=== PATIENT | female | born 1935 | race Caucasian/White ===

== ENCOUNTER 2018-02-09 12:37 | Observation (INO) | END 2018-02-11 17:23 | disposition home or self-care (01) ==

== ENCOUNTER 2018-05-08 19:16 | Emergency (ER) | END 2018-05-08 22:50 | disposition home or self-care (01) ==

== ENCOUNTER 2019-01-11 09:52 | Day surgery (SDC) | payer OTHER ==
[2019-01-11] VITALS (13 sets, daily range): BP systolic 134–169; BP diastolic 59–81; PULSE 68–82; RESP 12–20; Ht 154.9 cm; Wt 66.6 kg
[~2019-01-11] VITALS: Ht 154.9 cm; Wt 66.6 kg
[~2019-01-11 09:52] MED LIST: CARB1TAB34 PO; CLOP75TA28 PO; FER325 PO; HYDR-4011 PO; LEVO75TA5 PO; LIPA1CAP4 PO; LOSA100T15 PO; NORT25CA PO; PANT40TA4 PO; POTA10TA37 PO; SOD CHLORIDE 0.9% 1,000 ML IV SCH
[2019-01-11] MEDS ORDERED: GABA100C14 ORAL (10:46)
[2019-01-11] MEDS ORDERED: BENA40TA56 ORAL (10:46)
[2019-01-11] MEDS ORDERED: CLIN300C10 PO (10:56)
[2019-01-11] MEDS ORDERED: MIDAZOLAM 1 MG/ML 2 ML INJ ONE (12:12)
[2019-01-11] MEDS ORDERED: HEPARIN 1000 UNITS/NS (A-LINE) 1,000 ML ONE (12:12)
[2019-01-11] MEDS ORDERED: FENTAnyl 50 MCG/ML VIAL ONE (12:12)
[2019-01-11] MEDS ORDERED: LIDOCAINE 1% (MDV) 20 ML INJ ONE (12:12)
--- NOTE | 2019-01-11 12:58 | SIPON ---
Date/Time of Note Date/Time of Note DATE: 01/11/19 TIME: 12:56 Operative Report Preoperative Diagnosis Right leg non healing ulcer Postoperative Diagnosis same Operation/Procedure Performed aortogram, RLE runoff, L CHIEF MECHANICAL ENGINEER puncture - occluded R SFA to mid thigh, patent pop and 2v runoff via ASTRID and peroneal Surgeon see signature line graduate teaching assistant none Anesthesia: moderate sedation Estimated blood loss: minimal Transfusion Required none Specimen none Grafts/Implants none Complications none ALLY DAY MD Jan 11, 2019 12:58
--- NOTE | 2019-01-11 18:10 | OPR ---
DATE OF OPERATION: 01/11/2019 PREOPERATIVE DIAGNOSIS: Right ankle nonhealing ulcer. POSTOPERATIVE DIAGNOSIS: Right ankle nonhealing ulcer. PROCEDURE PERFORMED: Abdominal aortogram with right lower extremity runoff. SURGEON: Dr. Ally Estrada. ANESTHESIA: Local with sedation. ESTIMATED BLOOD LOSS: Minimal. COMPLICATIONS: No intraprocedural complications. INDICATIONS: An 83-year-old woman with Parkinson's, peripheral arterial disease, and a painful nonhe aling right medial ankle ulcer. 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 She had preoperative arter ial duplex done 6 months ago that showed a right SFA occlusion. I brought her in today for angiogram and possible intervention to help the wound heal, which is what we ended up doing for diagnostic. DESCRIPTION OF PROCEDURE: The patient was brought to the supervisor dental laboratory, placed on the table in the supine position. Left groin was prepped and draped in the usual sterile fashion. Using ultrasound to iden tify the left common femoral artery, I infiltrated over the artery using about 10 mL of 1% Xylocaine. I then used a micropuncture needle to enter the artery under ultrasound guidance. An 0.018 wire wa s inserted through the needle into the artery and a micropuncture sheath was advanced over the wire i nto the artery. I then advanced an 0.035 Bentson wire up into the abdominal aorta, exchanged the lance ropuncture sheath for a 5-Sinhala sheath over the wire. I then advanced a rim catheter into the infra renal aorta and did an aortogram. I advanced the catheter up and over the bifurcation using a 0.035 Glidewire for support and I advanced the catheter down into the right profunda femoral artery for run off down the right lower extremity. FINDINGS OF ANGIOGRAPHY: The infrarenal aorta is small but widely patent. There is no disease. Bot h common external and internal iliac arteries are widely patent. The right common femoral artery is patent with a widely patent right deep femoral artery. The right superficial femoral artery has a fl ush occlusion at its origin. There is a big branch coming off of the common femoral artery, but the superficial femoral artery itself is occluded at the origin. In the mid thigh, the SFA reconstitutes . It is very small and diseased down to the adductor where there is a good popliteal artery, which i s widely patent above and below the knee. Below the knee, the posterior tibial artery is occluded. There is good runoff through the anterior tibial artery which is patent all the way down across the a nkle into the foot giving rise to the dorsalis pedis. The peroneal artery is also widely patent all the way down to the ankle. The posterior tibial artery reconstitutes at the ankle through collateral s and there is retrograde filling into the pedal arch and into the plantar arteries through the dorsa lis pedis as well, so as this was a flush long segment occlusion of the SFA with a lot of collaterals coming off the common femoral, I did not think it was worth trying to intervene percutaneously. I t hink she would be better served with a bypass fem-pop. She has good runoff and a good popliteal gaby ry above the knee, so we terminated the procedure. We removed the catheter sheaths and wires and hel d manual pressure on the groin until there was good hemostasis. She was then transferred to the [facility] very room in stable condition. She tolerated the procedure well without any complications. Dictated By: ALLY RICE/IRENE Conf#: [id number] DID#: [id number] CC: DULCE BENNETT MD;*EndCC*
--- NOTE | 2019-01-12 17:07 | RADRPT ---
Vent Rate: 68 bpm RR Interval: 880 msec TN Interval: 153 msec QRS Duration: 91 msec QT Interval: 414 msec QTC Interval: 441 msec P-R-T [place]: 66 - 48 - 41 degrees Sinus rhythm...normal P axis, V-rate 50- 99 Electronically Signed By: Stone Cody
== END 2019-01-11 17:35 | disposition home or self-care (01) ==
LOC: SDS 09:52
PROVIDERS: ATTEND Surgery Vascular Surgery
DX: L98.499 Non-pressure chronic ulcer of skin of other sites with unspecified severity (principal)
CPT/HCPCS: 36246; 71045; 75630; 80048; 81001; 85025; 85610; 85730; 93005; C1887; C1894; J1644; J2250; J3010

== ENCOUNTER 2019-02-03 06:14 | Inpatient (IN) | payer OTHER ==
[~2019-02-03] VITALS: Ht 160 cm; Wt 66.0 kg
[2019-02-03] VITALS (49 sets, daily range): BP systolic 75–193; BP diastolic 38–95; PULSE 62–84; RESP 9–73; Ht 160 cm; Wt 66.0 kg
[~2019-02-03 06:14] MED LIST changes: +ACET325T33 PO; +ASPI-817 PO; +BEN25 PO; +BENA40TA56 ORAL; +BENA40TA56 PO; +CLIN300C10 PO; +DOCU-144 PO; +FURO20TA3 PO; +GABA100C14 ORAL; +GABA100C14 PO; +GABA300C16 PO; -HYDR-4011 PO; +LEVO50TA7 ORAL; -LOSA100T15 PO; +METO-448 PO; +MUPI22OI2 TOP; +NA P133E5 PR; +NITR100C6 PO; -NORT25CA PO; +PANT40TA4 ORAL; -PANT40TA4 PO; -POTA10TA37 PO; -SOD CHLORIDE 0.9% 1,000 ML IV SCH; +TRAM50TA2 PO
[2019-02-03] MEDS ORDERED: CEFAZOLIN 2 GM/50 ML (PMX) 50 ML IVPB ONE (07:00)
--- NOTE | 2019-02-03 07:10 | HPN ---
Date/Time of Note Date/Time of Note DATE: 02/03/19 TIME: 07:10 Interval H&P Admission Note Pt. seen H&P reviewed: No system changes ALLY DAY MD Feb 03, 2019 07:10
[2019-02-03] MEDS ORDERED: HEPARIN 1000 UNITS/ML 10 ML INJ ONE (07:26)
[2019-02-03] MEDS ORDERED: GELATIN SIZE 100 SPONGE ONE ×2 (07:26→11:32)
[2019-02-03] MEDS ORDERED: THROMBIN 5000 UNIT (RECOTHROM) VIAL ONE (07:26)
[2019-02-03] MEDS ORDERED: CITRIC ACID/NA CITRATE 30 ML CUP PO ONE (07:30)
[2019-02-03] MEDS: LACTATED RINGER'S 1,000 ML IV SCH (07:35)
[2019-02-03] MEDS ORDERED: HEPARIN 1000 UNITS/ML 10 ML INJ IRR ONE (07:45)
--- NOTE | 2019-02-03 08:11 | PREAC ---
Date/Time of Note Date/Time of Note DATE: 02/03/19 TIME: 08:09 Anesthesia Eval and Record Evaluation Time Pre-Procedure Interview DATE: 02/03/19 TIME: 08:09 Age 83 Sex female NPO: 8 hrs Preoperative diagnosis PAD Planned procedure R femoral to popliteal bypass Past Medical History Past Medical History: Includes Cardio: HTN Endo: Hypothyroid Neuro: Peripheral neuropathy Renal: CKD GI: GERD, Hiatal hernia Heme: Anemia Surgery & Anesthesia Issues No known issue Meds Anticoagulation: No Beta Nadine within 24 hr: No Reason Beta Nadine not given: Pt. not on B-Nadine Active Scripts Clopidogrel Bisulfate (Clopidogrel) 75 Mg Tablet, 75 MG PO DAILY for 30 Days, TAB Prov:DULCE BENNETT MD 02/11/18 Reported Medications Aspirin* (Aspirin* EC) 81 Mg Tablet.dr, 81 MG PO DAILY, TAB 02/03/19 Pantoprazole* (Pantoprazole*) 40 Mg Tablet.dr, 1 TAB ORAL DAILY 02/03/19 Benazepril Hcl* (Benazepril Hcl*) 40 Mg Tablet, 40 MG PO DAILY, #30 TAB 02/03/19 Levothyroxine Sodium* (Levothyroxine Sodium*) 50 Mcg Tablet, 1 TAB ORAL QAM 02/03/19 Gabapentin* (Gabapentin*) 100 Mg Capsule, 100 MG PO QAM, #90 CAP 02/03/19 Furosemide* (Furosemide*) 20 Mg Tablet, 20 MG PO DAILY, #60 TAB 02/03/19 Gabapentin* (Gabapentin*) 100 Mg Capsule, 3 CAP ORAL QHS 01/11/19 Carbidopa/Levodopa (Carbidopa-Levodopa 25-100 Tab) 1 Each Tablet, 1 EACH PO TID, TAB 02/09/18 Ferrous Sulfate* (Ferrous Sulfate*) 325 Mg Tabec, 325 MG PO DAILY, TAB 02/09/18 Discontinued Reported Medications Clindamycin Hcl* (Clindamycin Hcl*) 300 Mg Capsule, 300 MG PO Q8, CAP 01/11/19 Benazepril Hcl* (Benazepril Hcl*) 40 Mg Tablet, 1 TAB ORAL DAILY 01/11/19 Discontinued Scripts Fzhnbg-Idoiwrkt-Xdiembw* (Chloé BECKMAN* 12,000) 12,000 L-38,000-60,000 Unit Capsule.dr, 1 CAP PO WITH MEALS for 30 Days Prov:DULCE BENNETT MD 02/11/18 Current Medications Lactated Ringer's 1,000 ml @ 25 mls/hr Q24H IV Last administered on 02/03/19at 07:35; Admin Dose 25 MLS/HR; Start 02/03/19 at 07:30 Meds reviewed: Yes (plavix stopped over 5 days ago per patient and her ) Allergies Coded Allergies: No Known Allergy (Unverified , 02/03/19) Allergies Reviewed: Yes Labs/Studies Labs Reviewed: Reviewed by anesthesiologist Blood Bank Test 02/03/19 07:10 Blood Product Summary Counts test: N/A Pre-procedure Exam Last vitals Vital Signs Date Temp Pulse Resp B/P (MAP) Pulse Ox O2 O2 Flow FiO2 Time Delivery Rate 02/03/19 97.2 76 18 121/52 98 Room Air 07:00 (75) Airway: Adequate mouth opening, Adequate thyromental dist Mallampati: Mallampati IV Teeth: Normal Lung: Normal Heart: Normal ASA Physical Status ASA physical status: 4 Emergency: None Pre-operative Attestations Prior to commencing anesthesia and surgery, the patient was re-evaluated, there was verification of: *The patient's identity *The results of appropriate recent lab work and preoperative vital signs *The above evaluation not changing prior to induction *Anesthetic plan, risk benefits, alternative and complications discussed with patient/family; questions answered; patient/family understands, accepts and wishes to proceed. TOMY TORREZ DO Feb 03, 2019 08:11
[2019-02-03] MEDS ORDERED: hydrALAzine 20 MG INJ IV PRN (08:30)
[2019-02-03] MEDS ORDERED: LABETALOL HCL 20MG INJ IV PRN (08:30)
[2019-02-03] MEDS ORDERED: ONDANSETRON 4 MG INJ IV PRN (08:30)
[2019-02-03] MEDS ORDERED: HYDROmorphONE 1 MG/5 ML IV SYRINGE IV PRN ×3 (08:30)
[2019-02-03] MEDS ORDERED: BACITRACIN/POLYMYXIN 28.35 GM OINT TOP ONE (09:09)
[2019-02-03] MEDS ORDERED: BACITRACIN/POLYMYXIN 0.9 GM OINT TOP ONE (09:10)
[2019-02-03] MEDS ORDERED: THROMBIN 5000 UNIT (RECOTHROM) VIAL TOP ONE (11:25)
--- NOTE | 2019-02-03 12:07 | SIPON ---
Date/Time of Note Date/Time of Note DATE: 02/03/19 TIME: 12:05 Operative Report Preoperative Diagnosis non healing ulcer right distal calf Postoperative Diagnosis same Operation/Procedure Performed R fem-pop bypass with in-situ GSV and endoscopic vein branch ligation Surgeon see signature line mechanic assistant JAYLYN Tafoya Anesthesia: general Estimated blood loss: 50 - 100 ml's Transfusion Required none Specimen none Grafts/Implants none Complications none ALLY DAY MD Feb 03, 2019 12:07
[2019-02-03] MEDS ORDERED: niCARdipine 50 MG in SOD CHLORIDE 0.9% 480 ML IV SCH (12:30)
--- NOTE | 2019-02-03 13:10 | OPR ---
DATE OF OPERATION: 02/03/2019 PREOPERATIVE DIAGNOSIS: Nonhealing ulcer right distal calf and superficial femoral artery occlusion. POSTOPERATIVE DIAGNOSIS: Nonhealing ulcer right distal calf and superficial femoral artery occlusion . PROCEDURE PERFORMED: Right fem-pop bypass using in situ greater saphenous vein. We also did an endo scopic side branch ligation. SURGEON: Ally Estrada MD SIZE ROLLER OPERATOR: JAYLYN Tafoya ANESTHESIA: General endotracheal anesthesia. ESTIMATED BLOOD LOSS: 100 mL. COMPLICATIONS: No intraprocedural complications. INDICATIONS: This is an 83-year-old diabetic hypertensive woman. She has a nonhealing ulcer to the right medial ankle that is continually enlarging. She has mixed arterial and venous insufficiency. She had an arteriogram that shows a right SFA occlusion with reconstitution of the popliteal above th e knee and a 2-vessel runoff. I brought her in today for a fem-pop bypass for which she agreed to pr oceed. PROCEDURE: Patient was brought to the operating room and placed on the table in supine position. [facility] leg was prepped and draped in usual sterile fashion. Enedina Plascencia assisted me with doing bas ically skeletonizing the vein from the knee to the groin and using the endoscopic vein harvest system , we then ligated all the side branches of the vein between the knee and the groin using surgical cli ps that were applied through a port directed into the mid-thigh. So we basically skeletonized the ve in endoscopically with insufflation and then used a clip senior internal auditor to clip all the side branches, and w e doubly ligated them all. Once the vein was skeletonized, I then went to the groin, made an incisi on over the great saphenous vein and common femoral artery up in the groin area. I carefully dissect ed out the great saphenous vein in the groin. I ligated all the side branches with 2-0 silk ties and divided them until I got right down on to the saphenofemoral junction. I put a Satinsky clamp acros s saphenofemoral junction and transected the vein right at the femoral junction and then oversewed th e femoral vein venotomy using a 5-0 Prolene suture in a running standard vascular surgical fashion wa s an excellent vein and then just clamped it and then proceeded to dissect out the common, superficia l, and profunda femoral arteries in the groin. There was some calcified plaque in the common femoral , but it was nonocclusive just along the medial wall. The SFA was patent for a short segment and the n occludes in the upper thigh. It was very diseased. Profunda were soft and healthy, I had them all dissected out. I then went down to the distal thigh. I made an incision over the great saphenous v ein getting just above the knee and extending it up to the distal thigh about a 4 cm segment, dissect ed out the saphenous vein at this level and ligated and braced with 2-0 or 3-0 silk ties and divided them. Once I had the vein skeletonized completely from the knee to the groin, I then went and opened the fascia overlying the medial thigh muscles, I retracted the muscles posteriorly. I then identifi ed the popliteal artery and vein just above the knee. It was soft and was easily clamped and had a p roximal and distal targets fully exposed, I then gave the patient 6000 units of heparin intravenously . I began in the groin. I clamped the common, superficial, and profunda femoral arteries and made a long arteriotomy on the distal common femoral about 1.5 cm in length. I then spatulated the upper e nd of the vein to fit the venotomy. I cut the first valve in the vein under direct vision. I then a nastomosed the upper end of vein to the side of the common femoral artery using a 5-0 Prolene suture in a running standard vascular surgical fashion. I removed the clamps. There was good hemostasis. The vein was actually incompetent, so I could feel a pulse all the way down at the knee. So I then w ent down to the very distal end of my incision in the thigh and ligated the great saphenous vein dist ally with 2-0 silk tie. I divided it. There is actually good pulsatile bleeding but passed the Jaziel itre valvulotome from below, I passed it once, I did not feel any valves that were cut, but there was now excellent flow out the end of it. I did not see any reason to pass it again. I then clamped th e vein proximally and then clamped the popliteal artery proximally and distally, made about a cm long anterior arteriotomy in the popliteal artery, especially at the distal end of the vein just to fit t he arteriotomy and anastomosed the distal end of the vein alongside the popliteal artery using 6-0 Pr olene suture in a running standard vascular surgical fashion. I flushed before completing the anasto mosis. There was good backbleeding. There was good prograde bleeding through collaterals. There wa s excellent flow down through the graft. I flushed with heparinized saline and then completed the an astomosis. I removed the clamps proximally and distally. I then listened with the Doppler. There w as an excellent triphasic signal, became monophasic when the graft was clamped. I could feel a good pulse in the popliteal artery distal to my anastomosis. There was good hemostasis. I was happy with the result. We then closed all the skin incisions in 2 layers distally. I used 3-0 Vicryl and surg ical timothy in the groin. I used 3-0 Vicryl subcutaneous, and 4-0 Monocryl subcuticular suture. St erile dressings were applied. I applied bacitracin ointment and a Tegaderm over the distal calf incis ion prior to the procedure and we just left that on and wrapped her from the foot all the way up to t he knee using Kerlix and an Alden wrap. She was then extubated in the operating room and transferred t o the recovery room in stable condition. She tolerated the procedure well without any complications. Dictated By: ALLY RICE/IRENE Conf#: [id number] DID#: [id number] CC: CHANDU KURTZ; GALDINO DOW DPM; DULCE BENNETT MD;*End*
--- NOTE | 2019-02-03 15:35 | PN ---
Date/Time of Note Date/Time of Note DATE: 02/03/19 TIME: 15:34 Subjective drowsy Objective Vitals Vital Signs Date Temp Pulse Resp B/P (MAP) Pulse Ox O2 O2 Flow FiO2 Time Delivery Rate 02/03/19 66 15 142/48 99 Nasal 2.0 15:15 (79) Cannula 02/03/19 98.0 12:47 in recovery rm, still under anesthetic, rr syst m+, cta, still with +1-2 pit edema, rt low ext warm, less whalen red, Medications Medications Current Medications Lactated Ringer's 1,000 ml @ 25 mls/hr Q24H IV Last administered on 02/03/19at 07:35; Admin Dose 25 MLS/HR; Start 02/03/19 at 07:30 Hydromorphone HCl (Dilaudid) 0.2 mg PACU PRN IV MILD PAIN 1-3; Start 02/03/19 at 08:30; Stop 02/03/19 at 16:00 Hydromorphone HCl (Dilaudid) 0.4 mg PACU PRN IV MOD PAIN 4-6; Start 02/03/19 at 08:30; Stop 02/03/19 at 16:00 Hydromorphone HCl (Dilaudid) 0.6 mg PACU PRN IV SEVERE PAIN 7-10 Last administered on 02/03/19at 15:06; Admin Dose 0.6 MG; Start 02/03/19 at 08:30; Stop 02/03/19 at 16:00 Ondansetron HCl (Zofran Inj) 4 mg PACU ORDER PRN IV NAUSEA/VOMITING Last administered on 02/03/19at 15:05; Admin Dose 4 MG; Start 02/03/19 at 08:30; Stop 02/03/19 at 16:00 Labetalol HCl (Labetalol) 5 mg PACU ORDER PRN IV HIGH BLOOD PRESSURE Last administered on 02/03/19at 13:36; Admin Dose 5 MG; Start 02/03/19 at 08:30; Stop 02/03/19 at 16:00 Hydralazine HCl (Apresoline) 5 mg PACU ORDER PRN IV HIGH BLOOD PRESSURE; Start 02/03/19 at 08:30; Stop 02/03/19 at 16:00 Nicardipine HCl 50 mg/Sodium Chloride 500 ml @ 50 mls/hr TITRATE IV Last administered on 02/03/19at 15:21; Admin Dose 50 MLS/HR; Start 02/03/19 at 12:30 VTE Prophylaxis Risk score (from Ns)>0 risk: 8 SCD applied (from [facility] [place]): No SCD contraindication: other (s/p rt leg vasc surg procedure) Pharmacological prophylaxis: other (asa, plavix) VTE Confirmed-Overlap Tx Rcvd Reason for no Overlap Therapy: Contraindicated VTE Overlap Tx Contraindicated: peripheral vascular disease, sx procedure on lower extremity Lines/Catheters IV Catheter Type: Saline Lock Morgan in Place: Yes Cont'd morgan catheter reason: urinary retention, terminal illness/intractable pain Assessment/Plan Assessment/Plan 1. very poor pvd--s/p rt fem-pop revision 2. ckd II 3. htn 4. chr rt low ext skin ulceration & cellulitis 5. parkinson's 6. anemia 7. anxiety-depression 8. very large hiatal hernia causing gerd ---initial adm to icu, ---per vasc surg ---restart all home meds as soon as ok to po meds intake per surg ---optimize pain control DULCE BENNETT MD Feb 03, 2019 15:35
[2019-02-03] MEDS ORDERED: BISACODYL (EC) 5 MG TAB PO PRN (16:00)
[2019-02-03] MEDS ORDERED: DIPHENHYDRAMINE 25 MG CAP PO PRN (16:00)
[2019-02-03] MEDS ORDERED: LEVOTHYROXINE 50 MCG TAB PO ONE (16:00)
[2019-02-03] MEDS: PANTOPRAZOLE (EC) 40 MG TAB PO SCH (18:11)
[2019-02-03] MEDS: DEXTROSE 5%-0.45% NACL 1,000 ML IV SCH (20:39)
[2019-02-03] MEDS: GABAPENTIN 300 MG CAP PO SCH (20:51)
[2019-02-03] MEDS: CARBIDOPA/LEVODOPA (25/100) TAB PO SCH (20:51)
[2019-02-03] MEDS: FERROUS SULFATE (EC) 325 MG TAB PO SCH (20:51)
[2019-02-03] MEDS: MUPIROCIN 2% 22 GM OINT TOP SCH (21:00)
[2019-02-03] MEDS: morphine 2 MG INJ IV PRN (21:30)
--- NOTE | 2019-02-03 22:58 | CONS ---
DATE OF ADMISSION: 02/03/2019 DATE OF CONSULTATION: 02/03/2019 REASON FOR CONSULTATION: Right ankle ulceration. HISTORY OF PRESENT ILLNESS: This is an 83-year-old female with chronic ulceration to the right media l ankle, the patient with a history of arteriovenous insufficiency. She currently is status post rig ht femoropopliteal bypass with in situ greater saphenous vein. PAST MEDICAL HISTORY: Hypertension, hypothyroidism, peripheral neuropathy, chronic kidney disease, G ERD, hiatal hernia, anemia. MEDICATIONS: 1. Plavix 75 mg daily. 2. Aspirin 81 mg daily. 3. Benazepril 40 mg p.o. daily. 4. Pantoprazole 40 mg p.o. daily. 5. Levothyroxine 50 mcg daily. 6. Gabapentin 100 mg p.o. daily. 7. Furosemide 20 mg p.o. daily. 8. Carbidopa/levodopa 25/100. 9. Ferrous sulfate. ALLERGIES: NONE. PHYSICAL EXAMINATION VITAL SIGNS: Temperature is 98, pulse 66, respiratory rate 15, blood pressure 142/48, pulse ox is 98 per nasal cannula on 2 liters. GENERAL: The patient is in the ICU, alert, oriented, no pain. EXTREMITIES: The patient with a warm right lower extremity, mild to moderate edema, venous stasis hy perpigmentation, ulceration to the right medial ankle. Dressings clean, dry, intact. LABORATORY DATA: Pending. ASSESSMENT: 1. Right ankle chronic ulceration. 2. Arteriovenous insufficiency, status post right femoropopliteal bypass graft with in situ greater saphenous. 3. Anemia. 4. Hypothyroidism. PLAN: Discussed options for wound closure. We will plan definitive closure with allograft for skin grafting. The patient is pending transfer to the ICU. Further discussion with family pending. Dictated By: GALDINO DOW DPM RB/NTS Conf#: [id number] DID#: [id number] CC: ALLY DAY MD;*End*
[2019-02-04] VITALS (62 sets, daily range): BP systolic 55–154; BP diastolic 33–73; PULSE 68–90; RESP 12–25
[2019-02-04] MEDS: LEVOTHYROXINE 50 MCG TAB PO SCH (06:01)
[2019-02-04] MEDS: PANTOPRAZOLE (EC) 40 MG TAB PO SCH ×2 (06:01→17:01)
[2019-02-04] MEDS: DEXTROSE 5%-0.45% NACL 1,000 ML IV SCH ×2 (06:05→18:00)
[2019-02-04] MEDS: MUPIROCIN 2% 22 GM OINT TOP SCH ×2 (08:57→21:00)
[2019-02-04] MEDS: FERROUS SULFATE (EC) 325 MG TAB PO SCH ×3 (08:57→20:50)
[2019-02-04] MEDS: CARBIDOPA/LEVODOPA (25/100) TAB PO SCH ×3 (08:57→20:50)
[2019-02-04] MEDS: morphine 2 MG INJ IV PRN ×6 (08:59→21:13)
[2019-02-04] MEDS ORDERED: ASPIRIN 325 MG TAB PO SCH (09:00)
[2019-02-04] MEDS: LACTATED RINGER'S 1,000 ML IV SCH (09:05)
--- NOTE | 2019-02-04 11:51 | PN ---
Date/Time of Note Date/Time of Note DATE: 02/04/19 TIME: 11:42 Assessment/Plan VTE Prophylaxis Risk [place] [facility] [place] risk: 5 SCD applied ([place] [facility] [place] No SCD contraindicated: other Pharmacological prophylaxis: NA/contraindicated Pharm contraindication: bleeding Lines/Catheters [facility] Urinary Cath still in place: Yes Reason Cath still needed: other (indicate) Assessment/Plan Assessment/Plan 1. Right ankle chronic ulceration. 2. Arteriovenous insufficiency, status post right femoropopliteal bypass graft with in situ greater saphenous. pod #1 hgb dropped to 6.3 repeated and still in the 6's. 2 units prbc being given. will recheck the hgb and if still low <8 will give more blood. no signs of hematoma or purpura . bp been stable. 3. Anemia. 4. Hypothyroidism. Result Diagram: 02/04/19 0633 02/04/19 0320 Results 24hrs Laboratory Tests Test 02/04/19 03:20 02/04/19 06:33 White Blood Count 7.9 8.5 Red Blood Count 2.60 L 2.50 L Hemoglobin 6.3 *L 6.0 *L Hematocrit 21.7 L 20.8 L Mean Corpuscular Volume 83.5 83.2 Mean Corpuscular Hemoglobin 24.2 L 24.0 L Mean Corpuscular Hemoglobin Concent 29.0 L 28.8 L Red Cell Distribution Width 16.9 H 17.1 H Platelet Count 302 # 286 Mean Platelet Volume 10.2 9.8 Immature Granulocytes % 0.400 0.400 Neutrophils % 75.5 77.2 H Segmented Neutrophils % (Manual) 85 H Band Neutrophils % (Manual) 10 H Lymphocytes % 9.3 L 7.7 L Lymphocytes % (Manual) 3 L Reactive Lymphocytes % (Manual) 1 H Monocytes % 12.2 H 13.0 H Monocytes % (Manual) 1 Eosinophils % 2.0 1.2 Basophils % 0.6 0.5 Nucleated Red Blood Cells % 0.0 0.0 Immature Granulocytes # 0.030 0.030 Neutrophils # 5.9 6.6 Neutrophils # (Manual) 6.8 Band Neutrophils # 0.7 H Lymphocytes (Manual) 0.2 L Lymphocytes # 0.7 L 0.7 L Reactive Lymphocytes # 0.0 Monocytes # 1.0 H 1.1 H Monocytes # (Manual) 0.0 L Eosinophils # 0.2 0.1 Basophils # 0.1 0.0 Nucleated Red Blood Cells # 0.0 0.0 Pathologist Review (Hematology) YES Platelet Estimate NORMAL Giant Platelets 2 H Poikilocytosis 1+ Anisocytosis 1+ Sodium Level 140 Potassium Level 4.3 Chloride Level 104 Carbon Dioxide Level 28 Anion Gap 8 Blood Urea Nitrogen 20 Creatinine 0.92 Est Glomerular Filtrat Rate mL/min Glucose Level 151 Calcium Level 8.8 Magnesium Level 1.9 Subjective 24 Hr Interval Summary Free Text/Dictation pt is awake. denies nausea. mild pain. denies sob. had low hgb this am started transfusion. 2 units. Exam/Review of Systems Exam Vitals Vital Signs Date Temp Pulse Resp B/P (MAP) Pulse Ox O2 O2 Flow FiO2 Time Delivery Rate 02/04/19 73 18 143/48 100 10:30 (79) 02/04/19 Nasal 1.0 09:00 Cannula 02/04/19 98.2 07:45 Intake and Output 02/03/19 02/03/19 02/04/19 1515:00 23:00 07:00 IntakeIntake Total 2000 ml 325 ml 805 ml OutputOutput Total 410 ml 830 ml 339 ml BalanceBalance 1590 ml -505 ml 466 ml Exam right LE swollen , no redness. no purpura small bandage in place. Head: normocephalic Neck: supple Respiratory: clear to auscultation Results Results 24hrs Laboratory Tests Test 02/04/19 03:20 02/04/19 06:33 White Blood Count 7.9 8.5 Red Blood Count 2.60 L 2.50 L Hemoglobin 6.3 *L 6.0 *L Hematocrit 21.7 L 20.8 L Mean Corpuscular Volume 83.5 83.2 Mean Corpuscular Hemoglobin 24.2 L 24.0 L Mean Corpuscular Hemoglobin Concent 29.0 L 28.8 L Red Cell Distribution Width 16.9 H 17.1 H Platelet Count 302 # 286 Mean Platelet Volume 10.2 9.8 Immature Granulocytes % 0.400 0.400 Neutrophils % 75.5 77.2 H Segmented Neutrophils % (Manual) 85 H Band Neutrophils % (Manual) 10 H Lymphocytes % 9.3 L 7.7 L Lymphocytes % (Manual) 3 L Reactive Lymphocytes % (Manual) 1 H Monocytes % 12.2 H 13.0 H Monocytes % (Manual) 1 Eosinophils % 2.0 1.2 Basophils % 0.6 0.5 Nucleated Red Blood Cells % 0.0 0.0 Immature Granulocytes # 0.030 0.030 Neutrophils # 5.9 6.6 Neutrophils # (Manual) 6.8 Band Neutrophils # 0.7 H Lymphocytes (Manual) 0.2 L Lymphocytes # 0.7 L 0.7 L Reactive Lymphocytes # 0.0 Monocytes # 1.0 H 1.1 H Monocytes # (Manual) 0.0 L Eosinophils # 0.2 0.1 Basophils # 0.1 0.0 Nucleated Red Blood Cells # 0.0 0.0 Pathologist Review (Hematology) YES Platelet Estimate NORMAL Giant Platelets 2 H Poikilocytosis 1+ Anisocytosis 1+ Sodium Level 140 Potassium Level 4.3 Chloride Level 104 Carbon Dioxide Level 28 Anion Gap 8 Blood Urea Nitrogen 20 Creatinine 0.92 Est Glomerular Filtrat Rate mL/min Glucose Level 151 Calcium Level 8.8 Magnesium Level 1.9 Medications Medication Current Medications Lactated Ringer's 1,000 ml @ 25 mls/hr Q24H IV Last administered on 02/04/19 09:05; Admin Dose 25 MLS/HR; Start 02/03/19 at 07:30 Nicardipine HCl 50 mg/Sodium Chloride 500 ml @ 50 mls/hr TITRATE IV Last administered on 02/03/19at 15:21; Admin Dose 50 MLS/HR; Start 02/03/19 at 12:30 Pantoprazole (Protonix Tab) 40 mg BID@06,18 PO Last administered on 02/04/19at 06:01; Admin Dose 40 MG; Start 02/03/19 at 18:00 Levothyroxine Sodium (Synthroid) 50 mcg DAILY@06 PO Last administered on 02/04/19at 06:01; Admin Dose 50 MCG; Start 02/04/19 at 06:00 Gabapentin (Neurontin) 300 mg HS PO ; Start 02/03/19 at 21:00 Carbidopa/Levodopa (Sinemet (25/ 100)) 1 tab TID PO Last administered on at 08:57; Admin Dose 1 TAB; Start 02/03/19 at 21:00 Ferrous Sulfate (Ferrous Sulfate (Ec)) 325 mg TID PO Last administered on 02/04/19 08:57; Admin Dose 325 MG; Start 02/03/19 at 21:00 Bisacodyl (Dulcolax) 10 mg DAILY PRN PO CONSTIPATION; Start 02/03/19 at 16:00 Diphenhydramine HCl (Benadryl) 25 mg HS PRN PO insomnia; Start 02/03/19 at 16:00 Mupirocin (Bactroban) 1 applic BID TOP Last administered on 02/04/19 08:57; Admin Dose 1 APPLIC; Start 02/03/19 at 21:00 Dextrose/Sodium Chloride 1,000 ml @ 90 mls/hr Q11H7M IV Last administered on 02/04/19 06:05; Admin Dose 90 MLS/HR; Start 02/03/19 at 20:00 Morphine Sulfate (morphine) 2 mg Q4H PRN IV SEVERE PAIN LEVEL 7-10 Last administered on 02/04/19 08:59; Admin Dose 2 MG; Start 02/03/19 at 21:00 Aspirin (Aspirin) 325 mg DAILY PO Last administered on 02/04/19 09:23; Admin Dose 325 MG; Start 02/04/19 at 09:00 RERE GODOY MD Feb 04, 2019 11:51
--- NOTE | 2019-02-04 12:23 | PN ---
Date/Time of Note Date/Time of Note DATE: 02/04/19 TIME: 12:18 Assessment/Plan VTE Prophylaxis Risk score (from Ns)>0 risk: 5 SCD applied (from Ns): No SCD contraindicated: bilateral LE trauma Pharmacological prophylaxis: LMWH Lines/Catheters IV Catheter Type (from Nrs): A Line Urinary Cath still in place: Yes Reason Cath still needed: skin wounds contaminated by urine Assessment/Plan Assessment/Plan Pt receiving 2 U prbc, and hgb check afterward. If appropriately responded, stable to d/c ayesha and transfer out of ICU per medicine team. Leave morgan until tomorrow am for strict I/O's and ok to d/c tomorrow OK to start PT tomorrow as well. Result Diagram: 02/04/19 0633 02/04/19 0320 Results 24hrs Laboratory Tests Test 02/04/19 03:20 02/04/19 06:33 White Blood Count 7.9 8.5 Red Blood Count 2.60 L 2.50 L Hemoglobin 6.3 *L 6.0 *L Hematocrit 21.7 L 20.8 L Mean Corpuscular Volume 83.5 83.2 Mean Corpuscular Hemoglobin 24.2 L 24.0 L Mean Corpuscular Hemoglobin Concent 29.0 L 28.8 L Red Cell Distribution Width 16.9 H 17.1 H Platelet Count 302 # 286 Mean Platelet Volume 10.2 9.8 Immature Granulocytes % 0.400 0.400 Neutrophils % 75.5 77.2 H Segmented Neutrophils % (Manual) 85 H Band Neutrophils % (Manual) 10 H Lymphocytes % 9.3 L 7.7 L Lymphocytes % (Manual) 3 L Reactive Lymphocytes % (Manual) 1 H Monocytes % 12.2 H 13.0 H Monocytes % (Manual) 1 Eosinophils % 2.0 1.2 Basophils % 0.6 0.5 Nucleated Red Blood Cells % 0.0 0.0 Immature Granulocytes # 0.030 0.030 Neutrophils # 5.9 6.6 Neutrophils # (Manual) 6.8 Band Neutrophils # 0.7 H Lymphocytes (Manual) 0.2 L Lymphocytes # 0.7 L 0.7 L Reactive Lymphocytes # 0.0 Monocytes # 1.0 H 1.1 H Monocytes # (Manual) 0.0 L Eosinophils # 0.2 0.1 Basophils # 0.1 0.0 Nucleated Red Blood Cells # 0.0 0.0 Pathologist Review (Hematology) YES Platelet Estimate NORMAL Giant Platelets 2 H Poikilocytosis 1+ Anisocytosis 1+ Sodium Level 140 Potassium Level 4.3 Chloride Level 104 Carbon Dioxide Level 28 Anion Gap 8 Blood Urea Nitrogen 20 Creatinine 0.92 Est Glomerular Filtrat Rate mL/min Glucose Level 151 Calcium Level 8.8 Magnesium Level 1.9 Subjective 24 Hr Interval Summary Free Text/Dictation No acute events overnight. Cardizem drip off for htn. Hgb 6. likely acute blood loss anemia from surgery on chronic anemia. Exam/Review of Systems Exam Vitals Vital Signs Date Temp Pulse Resp B/P (MAP) Pulse Ox O2 O2 Flow FiO2 Time Delivery Rate 02/04/19 73 18 143/48 100 10:30 (79) 02/04/19 Nasal 1.0 09:00 Cannula 02/04/19 98.2 07:45 Intake and Output 02/03/19 02/03/19 02/04/19 1515:00 23:00 07:00 IntakeIntake Total 2000 ml 325 ml 805 ml OutputOutput Total 410 ml 830 ml 339 ml BalanceBalance 1590 ml -505 ml 466 ml Exam AAO No apparent distress decreased breath sounds at the lung bases Heart: RRR Abd: soft, nontender Right hot foot, biphasic R AT signal, + multiphasic graft signal chronic right calf swelling ayesha morgan are still in. right IJ CVL Results Results 24hrs Laboratory Tests Test 02/04/19 03:20 02/04/19 06:33 White Blood Count 7.9 8.5 Red Blood Count 2.60 L 2.50 L Hemoglobin 6.3 *L 6.0 *L Hematocrit 21.7 L 20.8 L Mean Corpuscular Volume 83.5 83.2 Mean Corpuscular Hemoglobin 24.2 L 24.0 L Mean Corpuscular Hemoglobin Concent 29.0 L 28.8 L Red Cell Distribution Width 16.9 H 17.1 H Platelet Count 302 # 286 Mean Platelet Volume 10.2 9.8 Immature Granulocytes % 0.400 0.400 Neutrophils % 75.5 77.2 H Segmented Neutrophils % (Manual) 85 H Band Neutrophils % (Manual) 10 H Lymphocytes % 9.3 L 7.7 L Lymphocytes % (Manual) 3 L Reactive Lymphocytes % (Manual) 1 H Monocytes % 12.2 H 13.0 H Monocytes % (Manual) 1 Eosinophils % 2.0 1.2 Basophils % 0.6 0.5 Nucleated Red Blood Cells % 0.0 0.0 Immature Granulocytes # 0.030 0.030 Neutrophils # 5.9 6.6 Neutrophils # (Manual) 6.8 Band Neutrophils # 0.7 H Lymphocytes (Manual) 0.2 L Lymphocytes # 0.7 L 0.7 L Reactive Lymphocytes # 0.0 Monocytes # 1.0 H 1.1 H Monocytes # (Manual) 0.0 L Eosinophils # 0.2 0.1 Basophils # 0.1 0.0 Nucleated Red Blood Cells # 0.0 0.0 Pathologist Review (Hematology) YES Platelet Estimate NORMAL Giant Platelets 2 H Poikilocytosis 1+ Anisocytosis 1+ Sodium Level 140 Potassium Level 4.3 Chloride Level 104 Carbon Dioxide Level 28 Anion Gap 8 Blood Urea Nitrogen 20 Creatinine 0.92 Est Glomerular Filtrat Rate mL/min Glucose Level 151 Calcium Level 8.8 Magnesium Level 1.9 Medications Medication Current Medications Lactated Ringer's 1,000 ml @ 25 mls/hr Q24H IV Last administered on 02/04/19 09:05; Admin Dose 25 MLS/HR; Start 02/03/19 at 07:30 Nicardipine HCl 50 mg/Sodium Chloride 500 ml @ 50 mls/hr TITRATE IV Last administered on 02/03/19at 15:21; Admin Dose 50 MLS/HR; Start 02/03/19 at 12:30 Pantoprazole (Protonix Tab) 40 mg BID@06,18 PO Last administered on 02/04/19 06:01; Admin Dose 40 MG; Start 02/03/19 at 18:00 Levothyroxine Sodium (Synthroid) 50 mcg DAILY@06 PO Last administered on 02/04/19 06:01; Admin Dose 50 MCG; Start 02/04/19 at 06:00 Gabapentin (Neurontin) 300 mg HS PO ; Start 02/03/19 at 21:00 Carbidopa/Levodopa (Sinemet (25/ 100)) 1 tab TID PO Last administered on 02/04/19 08:57; Admin Dose 1 TAB; Start 02/03/19 at 21:00 Ferrous Sulfate (Ferrous Sulfate (Ec)) 325 mg TID PO Last administered on 02/04/19 08:57; Admin Dose 325 MG; Start 02/03/19 at 21:00 Bisacodyl (Dulcolax) 10 mg DAILY PRN PO CONSTIPATION; Start 02/03/19 at 16:00 Diphenhydramine HCl (Benadryl) 25 mg HS PRN PO insomnia; Start 02/03/19 at 16:00 Mupirocin (Bactroban) 1 applic BID TOP Last administered on 02/04/19 08:57; Admin Dose 1 APPLIC; Start 02/03/19 at 21:00 Dextrose/Sodium Chloride 1,000 ml @ 90 mls/hr Q11H7M IV Last administered on 02/04/19 06:05; Admin Dose 90 MLS/HR; Start 02/03/19 at 20:00 Morphine Sulfate (morphine) 2 mg Q4H PRN IV SEVERE PAIN LEVEL 7-10 Last administered on 02/04/19 08:59; Admin Dose 2 MG; Start 02/03/19 at 21:00 Aspirin (Aspirin) 325 mg DAILY PO Last administered on 02/04/19 09:23; Admin D ose 325 MG; Start 02/04/19 at 09:00; Status Hold MOY REZA MD Feb 04, 2019 12:23
[2019-02-04] MEDS ORDERED: FERROUS SULFATE (EC) 325 MG TAB PO SCH (14:30)
[2019-02-04] MEDS: CLOPIDOGREL 75 MG TAB PO SCH (15:15)
[2019-02-04] MEDS: GABAPENTIN 100 MG CAP PO SCH (15:24)
[2019-02-04] MEDS: FUROSEMIDE 20 MG TAB PO SCH (15:24)
[2019-02-04] MEDS: BENAZEPRIL 40 MG TAB PO SCH (17:02)
[2019-02-04] MEDS: GABAPENTIN 300 MG CAP PO SCH (20:50)
[2019-02-04] MEDS ORDERED: morphine 2 MG INJ IV PRN (21:30)
[2019-02-05] MEDS: LACTATED RINGER'S 1,000 ML IV SCH (00:27)
[2019-02-05] MEDS: DEXTROSE 5%-0.45% NACL 1,000 ML IV SCH ×2 (00:27→15:39)
[2019-02-05 03:48] VITALS: BP 123/60; PULSE 82; RESP 16
[2019-02-05] MEDS: LEVOTHYROXINE 50 MCG TAB PO SCH (05:43)
[2019-02-05] MEDS: PANTOPRAZOLE (EC) 40 MG TAB PO SCH ×2 (05:43→17:42)
[2019-02-05 07:30] VITALS: BP 123/56; PULSE 76; RESP 17
[2019-02-05] MEDS: CARBIDOPA/LEVODOPA (25/100) TAB PO SCH ×3 (08:51→20:16)
[2019-02-05] MEDS: FERROUS SULFATE (EC) 325 MG TAB PO SCH ×3 (08:51→20:16)
[2019-02-05] MEDS: ASPIRIN (EC) 81 MG TAB PO SCH (08:51)
[2019-02-05] MEDS: FUROSEMIDE 20 MG TAB PO SCH (08:52)
[2019-02-05] MEDS: BENAZEPRIL 40 MG TAB PO SCH (08:52)
[2019-02-05] MEDS: GABAPENTIN 100 MG CAP PO SCH (08:52)
[2019-02-05] MEDS: CLOPIDOGREL 75 MG TAB PO SCH (08:52)
[2019-02-05] MEDS: MUPIROCIN 2% 22 GM OINT TOP SCH ×3 (08:52→20:21)
--- NOTE | 2019-02-05 10:48 | PN ---
Date/Time of Note Date/Time of Note DATE: 02/05/19 TIME: 10:43 Assessment/Plan VTE Prophylaxis Risk score (from Ns)>0 risk: 3 SCD applied (from [facility] [place] No SCD contraindicated: other Pharmacological prophylaxis: NA/contraindicated Pharm contraindication: bleeding Lines/Catheters IV C[facility]ter Type (from [facility] Central Line Central line still needed: Yes Urinary Cath still in place: Yes Reason Cath still needed: other (indicate) Assessment/Plan Assessment/Plan 1. Right ankle chronic ulceration. 2. Arteriovenous insufficiency, status post right femoropopliteal bypass graft with in situ greater saphenous. pod #2 hgb dropped to 6.3 transfused 3 units prbc being given. appears stable. very low fe. no signs of hematoma or purpura . bp been stable. pt still not eating well. h/o s.e. with fe tabs in the past, currently on tid. if not tolerate will consider iv fe. -PT to start today. pt in pain. family requesting to increase the dose of MS. will put a larger range for prn MS. 3. Anemia. 4. Hypothyroidism. Result Diagram: 02/05/19 0450 02/05/19 0450 Results 24hrs Laboratory Tests Test 02/04/19 13:58 02/05/19 04:50 White Blood Count 9.1 12.2 #H Red Blood Count 3.33 #L 3.32 L Hemoglobin 8.5 #L 8.4 L Hematocrit 28.2 #L 27.9 L Mean Corpuscular Volume 84.7 84.0 Mean Corpuscular Hemoglobin 25.5 L 25.3 L Mean Corpuscular Hemoglobin Concent 30.1 L 30.1 L Red Cell Distribution Width 16.2 H 16.5 H Platelet Count 236 224 Mean Platelet Volume 9.3 9.8 Immature Granulocytes % 0.300 0.300 Neutrophils % 77.2 H 80.3 H Lymphocytes % 9.2 L 7.4 L Monocytes % 11.8 H 10.1 Eosinophils % 1.0 1.6 Basophils % 0.5 0.3 Nucleated Red Blood Cells % 0.0 0.0 Immature Granulocytes # 0.030 0.040 H Neutrophils # 7.1 9.8 H Lymphocytes # 0.8 0.9 Monocytes # 1.1 H 1.2 H Eosinophils # 0.1 0.2 Basophils # 0.1 0.0 Nucleated Red Blood Cells # 0.0 0.0 Sodium Level 134 L Potassium Level 4.0 Chloride Level 101 Carbon Dioxide Level 27 Anion Gap 6 Blood Urea Nitrogen 13 Creatinine 0.93 Est Glomerular Filtrat Rate mL/min Glucose Level 123 Calcium Level 8.7 Iron Level 11 L Total Iron Binding Capacity 322 Percent Iron Saturation 3 L Subjective 24 Hr Interval Summary Free Text/Dictation had bad day yesterday due to pain. pain every 1.5 hours. po intake was better. s/p 3 u prbc. Exam/Review of Systems Exam Vitals Vital Signs Date Temp Pulse Resp B/P (MAP) Pulse Ox O2 O2 Flow FiO2 Time Delivery Rate 02/05/19 98.8 76 17 123/56 95 07:30 (78) 02/04/19 Nasal 16:06 Cannula 02/04/19 1.0 15:00 Intake and Output 02/04/19 02/04/19 02/05/19 1515:00 23:00 07:00 IntakeIntake Total 1370 ml 240 ml 450 ml OutputOutput Total 320 ml 95 ml 725 ml BalanceBalance 1050 ml 145 ml -275 ml Exam right LE- no purpura no redness. bandages in place. dry Head: normocephalic Eyes: nl conjunctiva Respiratory: clear to auscultation Cardiovascular: regular rate and rhythm Results Results 24hrs Laboratory Tests Test 02/04/19 13:58 02/05/19 04:50 White Blood Count 9.1 12.2 #H Red Blood Count 3.33 #L 3.32 L Hemoglobin 8.5 #L 8.4 L Hematocrit 28.2 #L 27.9 L Mean Corpuscular Volume 84.7 84.0 Mean Corpuscular Hemoglobin 25.5 L 25.3 L Mean Corpuscular Hemoglobin Concent 30.1 L 30.1 L Red Cell Distribution Width 16.2 H 16.5 H Platelet Count 236 224 Mean Platelet Volume 9.3 9.8 Immature Granulocytes % 0.300 0.300 Neutrophils % 77.2 H 80.3 H Lymphocytes % 9.2 L 7.4 L Monocytes % 11.8 H 10.1 Eosinophils % 1.0 1.6 Basophils % 0.5 0.3 Nucleated Red Blood Cells % 0.0 0.0 Immature Granulocytes # 0.030 0.040 H Neutrophils # 7.1 9.8 H Lymphocytes # 0.8 0.9 Monocytes # 1.1 H 1.2 H Eosinophils # 0.1 0.2 Basophils # 0.1 0.0 Nucleated Red Blood Cells # 0.0 0.0 Sodium Level 134 L Potassium Level 4.0 Chloride Level 101 Carbon Dioxide Level 27 Anion Gap 6 Blood Urea Nitrogen 13 Creatinine 0.93 Est Glomerular Filtrat Rate mL/min Glucose Level 123 Calcium Level 8.7 Iron Level 11 L Total Iron Binding Capacity 322 Percent Iron Saturation 3 L Medications Medication Current Medications Lactated Ringer's 1,000 ml @ 25 mls/hr Q24H IV Last administered on 02/05/19 00:27; Admin Dose 25 MLS/HR; Start 02/03/19 at 07:30 Pantoprazole (Protonix Tab) 40 mg BID@06,18 PO Last administered on 02/05/19 05:43; Admin Dose 40 MG; Start 02/03/19 at 18:00 Levothyroxine Sodium (Synthroid) 50 mcg DAILY@06 PO Last administered on 02/05/19 05:43; Admin Dose 50 MCG; Start 02/04/19 at 06:00 Gabapentin (Neurontin) 300 mg HS PO Last administered on 02/04/19 20:50; Admin Dose 300 MG; Start 02/03/19 at 21:00 Carbidopa/Levodopa (Sinemet (25/ 100)) 1 tab TID PO Last administered on 02/05/19 08:51; Admin Dose 1 TAB; Start 02/03/19 at 21:00 Ferrous Sulfate (Ferrous Sulfate (Ec)) 325 mg TID PO Last administered on 08:51; Admin Dose 325 MG; Start 02/03/19 at 21:00 Bisacodyl (Dulcolax) 10 mg DAILY PRN PO CONSTIPATION; Start 02/03/19 at 16:00 Diphenhydramine HCl (Benadryl) 25 mg HS PRN PO insomnia; Start 02/03/19 at 16:00 Mupirocin (Bactroban) 1 applic BID TOP Last administered on 02/04/19 21:00; Ad min Dose 1 APPLIC; Start 02/03/19 at 21:00 Dextrose/Sodium Chloride 1,000 ml @ 90 mls/hr Q11H7M IV Last administered on 02/05/19 00:27; Admin Dose 90 MLS/HR; Start 02/03/19 at 20:00 Morphine Sulfate (morphine) 2 mg Q4H PRN IV SEVERE PAIN LEVEL 7-10 Last administered on 02/04/19 21:13; Admin Dose 2 MG; Start 02/03/19 at 21:00 Aspirin (Aspirin) 325 mg DAILY PO Last administered on 02/04/19 09:23; Admin Dose 325 MG; Start 02/04/19 at 09:00; Status Hold Aspirin (Halfprin) 81 mg DAILY PO Last administered on 02/05/19 08:51; Admin Dose 81 MG; Start 02/05/19 at 09:00 Benazepril HCl (Lotensin) 40 mg DAILY PO Last administered on 02/05/19 08:52; Admin Dose 40 MG; Start 02/04/19 at 14:30 Clopidogrel Bisulfate (plaVIX) 75 mg DAILY PO Last administered on 02/05/19 08:52; Admin Dose 75 MG; Start 02/04/19 at 14:30 Furosemide (Lasix) 20 mg DAILY PO Last administered on 02/05/19 08:52; Admin Dose 20 MG; Start 02/04/19 at 14:30 Gabapentin (Neurontin) 100 mg QAM PO Last administered on 02/05/19 08:52; Admin Dose 100 MG; Start 02/04/19 at 14:30 Morphine Sulfate (morphine) 2 mg Q2H PRN IV SEVERE PAIN LEVEL 7-10 Last administered on 02/05/19 00:42; Admin Dose 2 MG; Start 02/04/19 at 21:30 RERE GODOY MD Feb 05, 2019 10:48
[2019-02-05] MEDS ORDERED: morphine 4 MG/ML VIAL IV PRN (11:00)
[2019-02-05 11:22] VITALS: BP 120/58; PULSE 80; RESP 17
[2019-02-05 15:38] VITALS: BP 133/74; PULSE 75; RESP 18
[2019-02-05] MEDS: morphine 2 MG INJ IV PRN (18:04)
[2019-02-05 19:42] VITALS: BP 126/59; PULSE 77; RESP 18
[2019-02-05] MEDS: GABAPENTIN 300 MG CAP PO SCH (20:16)
[2019-02-05 23:34] VITALS: BP 107/71; PULSE 77; RESP 16
[2019-02-06 03:45] VITALS: BP 128/60; PULSE 78; RESP 18
[2019-02-06] MEDS: DEXTROSE 5%-0.45% NACL 1,000 ML IV SCH (03:48)
[2019-02-06] MEDS: LEVOTHYROXINE 50 MCG TAB PO SCH (05:34)
[2019-02-06] MEDS: PANTOPRAZOLE (EC) 40 MG TAB PO SCH ×2 (05:34→17:18)
[2019-02-06] MEDS: morphine 2 MG INJ IV PRN ×2 (05:37→07:25)
[2019-02-06 07:15] VITALS: BP 133/63; PULSE 80; RESP 17
[2019-02-06] MEDS: GABAPENTIN 100 MG CAP PO SCH (08:17)
[2019-02-06] MEDS: CARBIDOPA/LEVODOPA (25/100) TAB PO SCH ×3 (08:17→20:48)
[2019-02-06] MEDS: FUROSEMIDE 20 MG TAB PO SCH (08:17)
[2019-02-06] MEDS: CLOPIDOGREL 75 MG TAB PO SCH (08:17)
[2019-02-06] MEDS: ASPIRIN (EC) 81 MG TAB PO SCH (08:17)
[2019-02-06] MEDS: FERROUS SULFATE (EC) 325 MG TAB PO SCH ×3 (08:17→20:58)
[2019-02-06] MEDS: MUPIROCIN 2% 22 GM OINT TOP SCH ×2 (08:18→20:59)
[2019-02-06] MEDS: BENAZEPRIL 40 MG TAB PO SCH (08:18)
--- NOTE | 2019-02-06 09:31 | PN ---
Date/Time of Note Date/Time of Note DATE: 02/06/19 TIME: 09:27 Assessment/Plan Lines/Catheters IV Catheter Type (from Nrs): Central Line Zepeda in Place (from Nrs): Yes Assessment/Plan Assessment/Plan Doing well s/p R fem-pop, foot is well perfused, leg is edematous She is tired and feels weak - her Parkinson's may be exacerbated by the stress of surgery and anesthesia Keep R leg elevated PT consult Will start compression when she is less edematous Subjective 24 Hr Interval Summary c/o incisional pain. Diffuse weakness / tiredness. Exam/Review of Systems Vital Signs Vitals Vital Signs Date Temp Pulse Resp B/P (MAP) Pulse Ox O2 O2 Flow FiO2 Time Delivery Rate 02/06/19 98.4 80 17 133/63 98 07:15 (86) 02/04/19 Nasal 16:06 Cannula 02/04/19 1.0 15:00 Intake and Output 02/05/19 02/05/19 02/06/19 1515:00 23:00 07:00 IntakeIntake Total 400 ml 900 ml 950 ml OutputOutput Total 1300 ml 1400 ml BalanceBalance 400 ml -400 ml -450 ml Exam Free Text/Dictation R leg incisions clean and dry, no drainage R leg is edematous but soft 2+ graft pulse in the thigh R foot is warm and pink / hyperemic Results Result Diagram: 02/05/19 0450 02/05/19 0450 ALLY DAY MD Feb 06, 2019 09:31
[2019-02-06] MEDS: HYDROCODONE/APAP (5/325) TAB PO PRN ×2 (09:39→20:59)
[2019-02-06 11:30] VITALS: BP 117/52; PULSE 70; RESP 20
--- NOTE | 2019-02-06 14:35 | PN ---
Date/Time of Note Date/Time of Note DATE: 02/06/19 TIME: 14:35 Subjective nauseated, weak, pain is bad Objective Vitals Vital Signs Date Temp Pulse Resp B/P (MAP) Pulse Ox O2 O2 Flow FiO2 Time Delivery Rate 02/06/19 98.9 70 20 117/52 97 11:30 (73) 02/04/19 Nasal 16:06 Cannula 02/04/19 1.0 15:00 Intake and Output 02/05/19 02/05/19 02/06/19 1515:00 23:00 07:00 IntakeIntake Total 400 ml 900 ml 950 ml OutputOutput Total 1300 ml 1400 ml BalanceBalance 400 ml -400 ml -450 ml in bed, rr syst m+, cta, legs still 1-2+ pit edema, rt leg warm & good pulse+ Results Result Diagram: 02/05/1944902/05/19449 Medications Medications Current Medications Pantoprazole (Protonix Tab) 40 mg BID@06,18 PO Last administered on 02/06/19at 05:34; Admin Dose 40 MG; Start 02/03/19 at 18:00 Levothyroxine Sodium (Synthroid) 50 mcg DAILY@06 PO Last administered on 02/06/19at 05:34; Admin Dose 50 MCG; Start 02/04/19 at 06:00 Gabapentin (Neurontin) 300 mg HS PO Last administered on 02/05/19at 20:16; Admin Dose 300 MG; Start 02/03/19 at 21:00 Carbidopa/Levodopa (Sinemet (25/ 100)) 1 tab TID PO Last administered on 02/06/19at 13:18; Admin Dose 1 TAB; Start 02/03/19 at 21:00 Ferrous Sulfate (Ferrous Sulfate (Ec)) 325 mg TID PO Last administered on 02/06/19at 13:18; Admin Dose 325 MG; Start 02/03/19 at 21:00 Bisacodyl (Dulcolax) 10 mg DAILY PRN PO CONSTIPATION; Start 02/03/19 at 16:00 Diphenhydramine HCl (Benadryl) 25 mg HS PRN PO insomnia; Start 02/03/19 at 16:00 Mupirocin (Bactroban) 1 applic BID TOP Last administered on 02/04/19at 21:00; Admin Dose 1 APPLIC; Start 02/03/19 at 21:00 Dextrose/Sodium Chloride 1,000 ml @ 90 mls/hr Q11H7M IV Last administered on 02/06/19 03:48; Admin Dose 90 MLS/HR; Start 02/03/19 at 20:00 Aspirin (Aspirin) 325 mg DAILY PO Last administered on 02/04/19 09:23; Admin Dose 325 MG; Start 02/04/19 at 09:00; Status Hold Aspirin (Halfprin) 81 mg DAILY PO Last administered on 02/06/19 08:17; Admin Dose 81 MG; Start 02/05/19 at 09:00 Benazepril HCl (Lotensin) 40 mg DAILY PO Last administered on 02/06/19 08:18; Admin Dose 40 MG; Start 02/04/19 at 14:30 Clopidogrel Bisulfate (plaVIX) 75 mg DAILY PO Last administered on 02/06/19 08:17; Admin Dose 75 MG; Start 02/04/19 at 14:30 Furosemide (Lasix) 20 mg DAILY PO Last administered on 02/06/19 08:17; Admin Dose 20 MG; Start 02/04/19 at 14:30 Gabapentin (Neurontin) 100 mg QAM PO Last administered on 02/06/19 08:17; Admin Dose 100 MG; Start 02/04/19 at 14:30 Morphine Sulfate (morphine) 2 mg Q2H PRN IV SEVERE PAIN LEVEL 7-8 Last administered on 02/06/19 07:25; Admin Dose 2 MG; Start 02/05/19 at 11:30 Morphine Sulfate (morphine) 3 mg Q3H PRN IV SEVERE PAIN LEVEL 9-10; Start 02/05/19 at 11:00 Acetaminophen/ Hydrocodone Bitart ([place] (5/325)) 2 tab Q3H PRN PO MODERATE P AIN LEVEL 4-6 Last administered on 02/06/19 09:39; Admin Dose 2 TAB; Start 02/06/19 at 10:00 VTE Prophylaxis Risk score (from Nsg)>0 risk: 17 SCD applied (from Nsg): No SCD contraindication: other (s/p rt leg vasc surg procedure) Pharmacological prophylaxis: other (asa, plavix) Lines/Catheters IV Catheter Type: Saline Lock Central line still needed: No Morgan in Place: Yes Cont'd morgan catheter reason: urinary retention, terminal illness/intractable pain Assessment/Plan Assessment/Plan 1. s/p rt fem-pop revision #3--still have +2 edema & much pain 2. very lg hital hernia/ GERD--still cannot eat much 3. anemia more severe post vasc surg procedure--received 3u prbc so far, hgb holding at 8.4 4. ckd II 5. htn 6. pvd--chr leg skin ulcer & edema still 7. parkinson's 8. anxiety-depression ---change ivf to full ns dex but lower rate ---change lasix to iv ---PT eval & exercise sofia to oob ---optimize pain control ---?reglan trial? DULCE BENNETT MD Feb 06, 2019 14:35
[2019-02-06] MEDS: DEXTROSE 5%-0.9% NACL 1,000 ML IV SCH (15:10)
[2019-02-06] MEDS: FUROSEMIDE 20 MG INJ IV SCH (15:10)
[2019-02-06 15:19] VITALS: BP 103/49; PULSE 67; RESP 19
[2019-02-06] MEDS: ESCITALOPRAM 10 MG TAB PO SCH (16:30)
[2019-02-06] MEDS: METOCLOPRAMIDE 10 MG INJ IV SCH (17:17)
[2019-02-06 19:57] VITALS: BP 119/58; PULSE 76; RESP 18
[2019-02-06] MEDS: GABAPENTIN 300 MG CAP PO SCH (20:58)
[2019-02-07 00:08] VITALS: BP 123/60; PULSE 79; RESP 18
[2019-02-07 04:13] VITALS: BP 121/53; PULSE 71; RESP 18
[2019-02-07] MEDS: PANTOPRAZOLE (EC) 40 MG TAB PO SCH ×2 (05:37→18:11)
[2019-02-07] MEDS: HYDROCODONE/APAP (5/325) TAB PO PRN ×3 (05:37→14:08)
[2019-02-07] MEDS: LEVOTHYROXINE 50 MCG TAB PO SCH (05:37)
[2019-02-07 07:21] VITALS: BP 123/60; PULSE 63; RESP 17
[2019-02-07] MEDS: METOCLOPRAMIDE 10 MG INJ IV SCH ×3 (07:30→17:15)
[2019-02-07] MEDS: ESCITALOPRAM 10 MG TAB PO SCH (09:00)
[2019-02-07] MEDS: CARBIDOPA/LEVODOPA (25/100) TAB PO SCH ×3 (09:12→20:42)
[2019-02-07] MEDS: GABAPENTIN 100 MG CAP PO SCH (09:12)
[2019-02-07] MEDS: ASPIRIN (EC) 81 MG TAB PO SCH (09:12)
[2019-02-07] MEDS: FERROUS SULFATE (EC) 325 MG TAB PO SCH ×3 (09:12→20:41)
[2019-02-07] MEDS: CLOPIDOGREL 75 MG TAB PO SCH (09:12)
[2019-02-07] MEDS: FUROSEMIDE 20 MG INJ IV SCH (09:13)
[2019-02-07] MEDS: BENAZEPRIL 40 MG TAB PO SCH (09:13)
[2019-02-07] MEDS: MUPIROCIN 2% 22 GM OINT TOP SCH ×2 (09:21→20:42)
[2019-02-07] MEDS: DEXTROSE 5%-0.9% NACL 1,000 ML IV SCH (10:41)
[2019-02-07 11:29] VITALS: BP 132/63; PULSE 68; RESP 18
--- NOTE | 2019-02-07 12:14 | CONS ---
Assessment/Plan Assessment/Plan Assessment/Plan (Daily) Right ankle chronic venous ulceration Arteriovenous insufficiency, status post right femoropopliteal bypass graft with in situ greater saphenous Anemia Hypothyroidism Edema Plan Discussed findings with patient and family at bedside. Recommend to continue with light compression and betadine wet to dry dressing changes. Patient to elevate and offload lower extremity to assist with edema control. Discussed possible future plan of skin grafting to assist with wound closure. Consultation Date/Type/Reason Admit Date/Time Feb 03, 2019 at 06:14 Initial Consult Date Date/Time of Note DATE: 02/07/19 TIME: 12:13 24 HR Interval Summary Free Text/Dictation No acute events overnight Exam/Review of Systems Exam Vitals Vital Signs Date Temp Pulse Resp B/P (MAP) Pulse Ox O2 O2 Flow FiO2 Time Delivery Rate 02/07/19 98.2 68 18 132/63 100 11:29 (86) 02/04/19 Nasal 16:06 Cannula 02/04/19 1.0 15:00 Intake and Output 02/06/19 02/06/19 02/07/19 1515:00 23:00 07:00 IntakeIntake Total 250 ml 490 ml OutputOutput Total 1700 ml 500 ml BalanceBalance 250 ml -1210 ml -500 ml Exam warm right lower extremity, mild to moderate edema, venous stasis hyperpigmentation, ulceration to the right medial ankle. Dressings clean, dry, intact. 2+ pitting edema Right medial ankle ulceration site 3 x 3 x 0.2cm granular with maceration noted No purulence, no proximal streaking, no probing to bone. Results Result Diagram: 02/07/19 0520 02/07/19 0520 Results 24hrs Laboratory Tests Test 02/06/19 15:45 02/07/19 05:20 Urine Color STRAW Urine Clarity CLEAR Urine pH 5.0 Urine Specific [place] 1.005 Urine Ketones NEGATIVE Urine Nitrite NEGATIVE Urine Bilirubin NEGATIVE Urine Urobilinogen NEGATIVE Urine Leukocyte Esterase NEGATIVE Urine Microscopic RBC 1 Urine Microscopic WBC 1 Urine Hemoglobin 1+ H Urine Glucose NEGATIVE Urine Total Protein NEGATIVE White Blood Count 9.8 Red Blood Count 3.29 L Hemoglobin 8.5 L Hematocrit 28.5 L Mean Corpuscular Volume 86.6 Mean Corpuscular Hemoglobin 25.8 L Mean Corpuscular Hemoglobin Concent 29.8 L Red Cell Distribution Width 17.0 H Platelet Count 236 Mean Platelet Volume 9.5 Immature Granulocytes % 0.500 H Neutrophils % 71.2 Lymphocytes % 11.3 L Monocytes % 11.3 H Eosinophils % 5.3 Basophils % 0.4 Nucleated Red Blood Cells % 0.0 Immature Granulocytes # 0.050 H Neutrophils # 7.0 Lymphocytes # 1.1 Monocytes # 1.1 H Eosinophils # 0.5 Basophils # 0.0 Nucleated Red Blood Cells # 0.0 Sodium Level 137 Potassium Level 3.8 Chloride Level 104 Carbon Dioxide Level 29 Anion Gap 4 L Blood Urea Nitrogen 16 Creatinine 0.99 Est Glomerular Filtrat Rate mL/min Glucose Level 118 Calcium Level 8.6 Total Bilirubin 0.3 Direct Bilirubin 0.00 Indirect Bilirubin 0.3 Aspartate Amino Transf (AST/SGOT) 16 Alanine Aminotransferase (ALT/SGPT) 12 L Alkaline Phosphatase 55 Total Protein 5.6 L Albumin 2.7 L Globulin 2.90 Albumin/Globulin Ratio 0.93 Medications Medication Current Medications Pantoprazole (Protonix Tab) 40 mg BID@06,18 PO Last administered on 02/07/19 05:37; Admin Dose 40 MG; Start 02/03/19 at 18:00 Levothyroxine Sodium (Synthroid) 50 mcg DAILY@06 PO Last administered on 02/07/19 05:37; Admin Dose 50 MCG; Start 02/04/19 at 06:00 Gabapentin (Neurontin) 300 mg HS PO Last administered on 02/06/19 20:58; Admin Dose 300 MG; Start 02/03/19 at 21:00 Carbidopa/Levodopa (Sinemet (25/ 100)) 1 tab TID PO Last administered on 02/07/19 09:12; Admin Dose 1 TAB; Start 02/03/19 at 21:00 Ferrous Sulfate (Ferrous Sulfate (Ec)) 325 mg TID PO Last administered on 02/07/19 09:12; Admin Dose 325 MG; Start 02/03/19 at 21:00 Bisacodyl (Dulcolax) 10 mg DAILY PRN PO CONSTIPATION; Start 02/03/19 at 16:00 Diphenhydramine HCl (Benadryl) 25 mg HS PRN PO insomnia; Start 02/03/19 at 16:00 Mupirocin (Bactroban) 1 applic BID TOP Last administered on 02/07/19 09:21; Admin Dose 1 APPLIC; Start 02/03/19 at 21:00 Aspirin (Halfprin) 81 mg DAILY PO Last administered on 02/07/19 09:12; Admin Dose 81 MG; Start 02/05/19 at 09:00 Benazepril HCl (Lotensin) 40 mg DAILY PO Last administered on 02/07/19 09:13; Admin Dose 40 MG; Start 02/04/19 at 14:30 Clopidogrel Bisulfate (plaVIX) 75 mg DAILY PO Last administered on 02/07/19 09:12; Admin Dose 75 MG; Start 02/04/19 at 14:30 Gabapentin (Neurontin) 100 mg QAM PO Last administered on 02/07/19 09:12; Admin Dose 100 MG; Start 02/04/19 at 14:30 Morphine Sulfate (morphine) 2 mg Q2H PRN IV SEVERE PAIN LEVEL 7-8 Last administered on 02/06/19 07:25; Admin Dose 2 MG; Start 02/05/19 at 11:30 Acetaminophen/ Hydrocodone Bitart ([place] (5/325)) 2 tab Q3H PRN PO MODERATE PAIN LEVEL 4-6 Last administered on 02/07/19 10:37; Admin Dose 2 TAB; Start 02/06/19 at 10:00 Furosemide (Lasix) 20 mg DAILY IV Last administered on 02/07/19 09:13; Admin Dose 20 MG; Start 02/06/19 at 14:30 Dextrose/Sodium Chloride 1,000 ml @ 50 mls/hr Q20H IV Last administered on 02/07/19 10:41; Admin Dose 50 MLS/HR; Start 02/06/19 at 14:30 Metoclopramide HCl (Reglan) 5 mg BEFORE MEALS IV ; Start 02/06/19 at 17:30 Escitalopram Oxalate (Lexapro) 5 mg DAILY PO ; Start 02/06/19 at 16:30 CHANDU KURTZ DPM Feb 07, 2019 12:14
[2019-02-07 15:36] VITALS: BP 111/55; PULSE 64; RESP 18
[2019-02-07] MEDS: DOCUSATE SODIUM 100 MG CAP PO SCH (18:11)
[2019-02-07] MEDS: traMADol 50 MG TAB PO PRN ×2 (18:11→23:54)
--- NOTE | 2019-02-07 19:02 | PN ---
Date/Time of Note Date/Time of Note DATE: 02/07/19 TIME: 19:02 Subjective cannot eat, vomited, Objective Vitals Vital Signs Date Temp Pulse Resp B/P (MAP) Pulse Ox O2 O2 Flow FiO2 Time Delivery Rate 02/07/19 97.6 64 18 111/55 97 15:36 (73) 02/04/19 Nasal 16:06 Cannula 02/04/19 1.0 15:00 Intake and Output 02/06/19 02/06/19 02/07/19 1515:00 23:00 07:00 IntakeIntake Total 250 ml 490 ml OutputOutput Total 1700 ml 500 ml BalanceBalance 250 ml -1210 ml -500 ml drowsy, speech mumbled, a&o x2 only, low bp, rr syst m+, cta, +2 pit edema rt>lf legs, rt leg with dressing clean, Results Result Diagram: 02/07/1951902/07/19 0520 Medications Medications Current Medications Pantoprazole (Protonix Tab) 40 mg BID@06,18 PO Last administered on 02/07/19at 18:11; Admin Dose 40 MG; Start 02/03/19 at 18:00 Levothyroxine Sodium (Synthroid) 50 mcg DAILY@06 PO Last administered on 02/07/19 05:37; Admin Dose 50 MCG; Start 02/04/19 at 06:00 Gabapentin (Neurontin) 300 mg HS PO Last administered on 02/06/19at 20:58; Admin Dose 300 MG; Start 02/03/19 at 21:00 Carbidopa/Levodopa (Sinemet (25/ 100)) 1 tab TID PO Last administered on 02/07/19 12:33; Admin Dose 1 TAB; Start 02/03/19 at 21:00 Ferrous Sulfate (Ferrous Sulfate (Ec)) 325 mg TID PO Last administered on 02/07/19 12:33; Admin Dose 325 MG; Start 02/03/19 at 21:00 Bisacodyl (Dulcolax) 10 mg DAILY PRN PO CONSTIPATION; Start 02/03/19 at 16:00 Diphenhydramine HCl (Benadryl) 25 mg HS PRN PO insomnia; Start 02/03/19 at 16:00 Mupirocin (Bactroban) 1 applic BID TOP Last administered on 02/07/19 09:21; Admin Dose 1 APPLIC; Start 02/03/19 at 21:00 Aspirin (Halfprin) 81 mg DAILY PO Last administered on 02/07/19 09:12; Admin Dose 81 MG; Start 02/05/19 at 09:00 Benazepril HCl (Lotensin) 40 mg DAILY PO Last administered on 02/07/19 09:13; Admin Dose 40 MG; Start 02/04/19 at 14:30 Clopidogrel Bisulfate (plaVIX) 75 mg DAILY PO Last administered on 02/07/19 09:12; Admin Dose 75 MG; Start 02/04/19 at 14:30 Gabapentin (Neurontin) 100 mg QAM PO Last administered on 02/07/19 09:12; Admin Dose 100 MG; Start 02/04/19 at 14:30 Morphine Sulfate (morphine) 2 mg Q2H PRN IV SEVERE PAIN LEVEL 7-8 Last administered on 02/06/19 07:25; Admin Dose 2 MG; Start 02/05/19 at 11:30 Acetaminophen/ Hydrocodone Bitart ([place] (5/325)) 2 tab Q3H PRN PO MODERATE PAIN LEVEL 4-6 Last administered on 02/07/19 14:08; Admin Dose 2 TAB; Start 02/06/19 at 10:00 Furosemide (Lasix) 20 mg DAILY IV Last administered on 02/07/19 09:13; Admin Dose 20 MG; Start 02/06/19 at 14:30 Dextrose/Sodium Chloride 1,000 ml @ 50 mls/hr Q20H IV Last administered on 02/07/19 10:41; Admin Dose 50 MLS/HR; Start 02/06/19 at 14:30 Metoclopramide HCl (Reglan) 5 mg BEFORE MEALS IV ; Start 02/06/19 at 17:30 Escitalopram Oxalate (Lexapro) 5 mg DAILY PO ; Start 02/06/19 at 16:30 Tramadol HCl (Ultram) 50 mg Q6H PRN PO MODERATE PAIN LEVEL 4-6 Last administered on 02/07/19 18:11; Admin Dose 50 MG; Start 02/07/19 at 16:30 Docusate Sodium (Colace) 100 mg BID PO Last administered on 02/07/19 18:11; Admin Dose 100 MG; Start 7/23/19 at 18:00 VTE Prophylaxis Risk score (from Ns)>0 risk: 16 SCD applied (from [facility] [place]): No SCD contraindication: other (s/p rt leg vasc surg) Lines/Catheters IV Catheter Type: Saline Lock Morgan in Place: Yes Cont'd morgan catheter reason: skin wounds contaminated by urine, terminal illness/intractable pain Assessment/Plan Assessment/Plan 1. s/p rt fem-pop #4, much pain around surg site & ankle cellulitis site 2. anemia--received 3u prbc so far 3. ams/ mumbled speech--cva vs pain med effect 4. debility/ weak/ not oob yet 5. parkinson's 6. low bp episodes despite h/o htn 7. anemia 8. low po vin intake ---per vasc surg ---full PT eval & oob exercise ---off dilaudid, hydrocod ---inc po fluid intake ---cont ivf til eat better ---start DULCE Hunt MD Feb 07, 2019 19:02
[2019-02-07 19:39] VITALS: BP 116/56; PULSE 68; RESP 18
[2019-02-07] MEDS: GABAPENTIN 300 MG CAP PO SCH (20:42)
[2019-02-07] MEDS ORDERED: DOCUSATE SODIUM 100 MG CAP PO SCH (21:00)
[2019-02-07] MEDS: ACETAMINOPHEN 325 MG TAB PO PRN (21:57)
[2019-02-08 00:24] VITALS: BP 114/52; PULSE 71; RESP 18
[2019-02-08 04:20] VITALS: BP 128/62; PULSE 66; RESP 18
[2019-02-08] MEDS: PANTOPRAZOLE (EC) 40 MG TAB PO SCH ×2 (05:35→17:05)
[2019-02-08] MEDS: LEVOTHYROXINE 50 MCG TAB PO SCH (05:35)
[2019-02-08] MEDS: DEXTROSE 5%-0.9% NACL 1,000 ML IV SCH (06:25)
[2019-02-08] MEDS: traMADol 50 MG TAB PO PRN ×2 (06:32→14:26)
[2019-02-08] MEDS: METOCLOPRAMIDE 10 MG INJ IV SCH ×2 (07:30→11:30)
[2019-02-08 07:43] VITALS: BP 144/66; PULSE 75; RESP 16
[2019-02-08] MEDS: CARBIDOPA/LEVODOPA (25/100) TAB PO SCH ×3 (08:48→21:02)
[2019-02-08] MEDS: GABAPENTIN 100 MG CAP PO SCH ×2 (08:48→21:00)
[2019-02-08] MEDS: FUROSEMIDE 20 MG INJ IV SCH (08:49)
[2019-02-08] MEDS: FERROUS SULFATE (EC) 325 MG TAB PO SCH ×3 (08:49→21:02)
[2019-02-08] MEDS: CLOPIDOGREL 75 MG TAB PO SCH (08:49)
[2019-02-08] MEDS: DOCUSATE SODIUM 100 MG CAP PO SCH ×2 (08:50→21:02)
[2019-02-08] MEDS: ASPIRIN (EC) 81 MG TAB PO SCH (08:50)
[2019-02-08] MEDS: BENAZEPRIL 40 MG TAB PO SCH (08:50)
[2019-02-08] MEDS: ESCITALOPRAM 10 MG TAB PO SCH (09:00)
[2019-02-08] MEDS: MUPIROCIN 2% 22 GM OINT TOP SCH ×2 (09:00→21:03)
[2019-02-08] MEDS ORDERED: SOD CHLORIDE 0.9% 100 ML ONE (09:54)
[2019-02-08] MEDS ORDERED: IOHEXOL 300MG/ML 150 ML BTL ONE (09:54)
[2019-02-08] MEDS: HYDROCODONE/APAP (5/325) TAB PO PRN (11:11)
--- NOTE | 2019-02-08 11:30 | PN ---
Date/Time of Note Date/Time of Note DATE: 02/08/19 TIME: 11:28 Assessment/Plan Lines/Catheters IV Catheter Type (from Nrs): Central Line Morgan in Place (from Nrs): Yes Assessment/Plan Assessment/Plan Doing well s/p R fem-pop, still very edematous Keep right leg elevated and ISSA wrap from foot to groin OK for PT Remove morgan Subjective 24 Hr Interval Summary No new c/o. PT is getting her out of bed now. Exam/Review of Systems Vital Signs Vitals Vital Signs Date Temp Pulse Resp B/P (MAP) Pulse Ox O2 O2 Flow FiO2 Time Delivery Rate 02/08/19 98.2 75 16 144/66 95 07:43 (92) 02/04/19 Nasal 16:06 Cannula 02/04/19 1.0 15:00 Intake and Output 02/07/19 02/07/19 02/08/19 1515:00 23:00 07:00 IntakeIntake Total 480 ml 740 ml OutputOutput Total 1300 ml 400 ml BalanceBalance 480 ml -560 ml -400 ml Exam Free Text/Dictation R leg edematous, wounds are clean, some serous drainage from the thigh incisions Foot is warm and pink Results Result Diagram: 02/07/19 0520 02/07/19 0520 ALLY DAY MD Feb 08, 2019 11:30
[2019-02-08 12:58] VITALS: BP 117/56; PULSE 71; RESP 16
--- NOTE | 2019-02-08 13:37 | PN ---
Date/Time of Note Date/Time of Note DATE: 02/08/19 TIME: 13:37 Subjective much leg pain, weak Objective Vitals Vital Signs Date Temp Pulse Resp B/P (MAP) Pulse Ox O2 O2 Flow FiO2 Time Delivery Rate 02/08/19 97.9 71 16 117/56 94 12:58 (76) 02/04/19 Nasal 16:06 Cannula 02/04/19 1.0 15:00 Intake and Output 02/07/19 02/07/19 02/08/19 1515:00 23:00 07:00 IntakeIntake Total 480 ml 740 ml OutputOutput Total 1300 ml 400 ml BalanceBalance 480 ml -560 ml -400 ml with PT, sat at the edge of bed, with assistance got up to stand but with bent knees & could not take steps, more awake, rr syst m+, cta, slight less leg edema, rt leg dressing dry & clean Results Result Diagram: 02/07/1951902/07/19519 Medications Medications Current Medications Pantoprazole (Protonix Tab) 40 mg BID@06,18 PO Last administered on 02/08/19at 05:35; Admin Dose 40 MG; Start 02/03/19 at 18:00 Levothyroxine Sodium (Synthroid) 50 mcg DAILY@06 PO Last administered on 02/08/19 05:35; Admin Dose 50 MCG; Start 02/04/19 at 06:00 Gabapentin (Neurontin) 300 mg HS PO Last administered on 02/07/19 20:42; Admin Dose 300 MG; Start 02/03/19 at 21:00 Carbidopa/Levodopa (Sinemet (25/ 100)) 1 tab TID PO Last administered on 02/08/19at 12:29; Admin Dose 1 TAB; Start 02/03/19 at 21:00 Ferrous Sulfate (Ferrous Sulfate (Ec)) 325 mg TID PO Last administered on 02/08/19 12:29; Admin Dose 325 MG; Start 02/03/19 at 21:00 Diphenhydramine HCl (Benadryl) 25 mg HS PRN PO insomnia; Start 02/03/19 at 16 :00 Mupirocin (Bactroban) 1 applic BID TOP Last administered on 02/07/19at 09:21; Admin Dose 1 APPLIC; Start 02/03/19 at 21:00 Aspirin (Halfprin) 81 mg DAILY PO Last administered on 02/08/19 08:50; Admin Dose 81 MG; Start 02/05/19 at 09:00 Benazepril HCl (Lotensin) 40 mg DAILY PO Last administered on 02/08/19 08:50; Admin Dose 40 MG; Start 02/04/19 at 14:30 Clopidogrel Bisulfate (plaVIX) 75 mg DAILY PO Last administered on 02/08/19 08:49; Admin Dose 75 MG; Start 02/04/19 at 14:30 Furosemide (Lasix) 20 mg DAILY IV Last administered on 02/08/19 08:49; Admin Dose 20 MG; Start 02/06/19 at 14:30 Dextrose/Sodium Chloride 1,000 ml @ 50 mls/hr Q20H IV Last administered on 02/08/19 06:25; Admin Dose 50 MLS/HR; Start 02/06/19 at 14:30 Tramadol HCl (Ultram) 50 mg Q6H PRN PO MODERATE PAIN LEVEL 4-6 Last administered on 02/08/19 06:32; Admin Dose 50 MG; Start 02/07/19 at 16:30 Docusate Sodium (Colace) 100 mg BID PO Last administered on 02/08/19 08:50; Admin Dose 100 MG; Start 02/07/19 at 18:00 Acetaminophen (Tylenol Tab) 650 mg Q6H PRN PO MILD PAIN(1-3)OR ELEVATED TEMP Last administered on 02/07/19 21:57; Admin Dose 650 MG; Start 02/07/19 at 22:00 Gabapentin (Neurontin) 100 mg BID PO ; Start 02/08/19 at 21:00 Sodium Biphosphate/ Sodium Phosphate (Fleet Enema) 133 ml DAILY PRN [place] CONSTIPATION; Start 02/08/19 at 13:30 VTE Prophylaxis Risk score (from Nsg)>0 risk: 8 SCD applied (from Nsg): No SCD contraindication: other (s/p vasc surg) Pharmacological prophylaxis: apixaban, other (aspirin) Lines/Catheters IV Catheter Type: Saline Lock Central line still needed: No Morgan in Place: Yes Cont'd morgan catheter reason: skin wounds contaminated by urine, terminal illness/intractable pain Assessment/Plan Assessment/Plan 1. s/p rt fem-pop #5 2. slow recovery, weak, much leg pain 3. anemia 4. parkinson's/ balnce-gait ds 5. ckd II 6. htn ---per vasc surg ---must cont full PT ---tramadol 50mg tid trial, ---benadryl 25mg qhs trial for sleep ---daughter refused lexapro ---inc fluid, as pt ate solid food better DULCE BENNETT MD Feb 08, 2019 13:37
[2019-02-08] MEDS: NA PHOSPHATE/BIPHOS 133 ML ENEMA PR PRN (18:15)
[2019-02-08 20:00] VITALS: BP 151/67; PULSE 75; RESP 19
[2019-02-08] MEDS: GABAPENTIN 300 MG CAP PO SCH (21:03)
[2019-02-09 00:24] VITALS: BP 175/76; PULSE 83; RESP 20
[2019-02-09] MEDS: traMADol 50 MG TAB PO PRN ×3 (01:15→18:54)
[2019-02-09 04:11] VITALS: BP 143/65; PULSE 78; RESP 20
[2019-02-09] MEDS: LEVOTHYROXINE 50 MCG TAB PO SCH (05:47)
[2019-02-09] MEDS: PANTOPRAZOLE (EC) 40 MG TAB PO SCH ×2 (05:47→17:34)
[2019-02-09 07:42] VITALS: BP 136/62; PULSE 75; RESP 20
[2019-02-09] MEDS: ASPIRIN (EC) 81 MG TAB PO SCH (08:58)
[2019-02-09] MEDS: FERROUS SULFATE (EC) 325 MG TAB PO SCH ×3 (08:58→20:46)
[2019-02-09] MEDS: BENAZEPRIL 40 MG TAB PO SCH (08:58)
[2019-02-09] MEDS: DOCUSATE SODIUM 100 MG CAP PO SCH ×2 (08:59→20:46)
[2019-02-09] MEDS: CARBIDOPA/LEVODOPA (25/100) TAB PO SCH ×3 (08:59→20:46)
[2019-02-09] MEDS: CLOPIDOGREL 75 MG TAB PO SCH (08:59)
[2019-02-09] MEDS: GABAPENTIN 100 MG CAP PO SCH ×2 (08:59→21:00)
[2019-02-09] MEDS: FUROSEMIDE 20 MG INJ IV SCH (09:00)
[2019-02-09] MEDS: MUPIROCIN 2% 22 GM OINT TOP SCH ×2 (09:02→20:54)
[2019-02-09 11:36] VITALS: BP 142/67; PULSE 69; RESP 20
[2019-02-09] MEDS: ACETAMINOPHEN 325 MG TAB PO PRN (13:09)
--- NOTE | 2019-02-09 13:46 | PN ---
Date/Time of Note Date/Time of Note DATE: 02/09/19 TIME: 13:46 Subjective ate better, had bm with enema, still much pain in legs & weak thus cannot walk yet Objective Vitals Vital Signs Date Temp Pulse Resp B/P (MAP) Pulse Ox O2 O2 Flow FiO2 Time Delivery Rate 02/09/19 98.0 69 20 142/67 97 Nasal 11:36 (92) Cannula Intake and Output 02/08/19 02/08/19 02/09/19 1515:00 23:00 07:00 IntakeIntake Total 550 ml 400 ml OutputOutput Total 1060 ml BalanceBalance -510 ml 400 ml awake, cta, rr syst m+, rt dressing dry & clean, slight difficult finding words, Results Result Diagram: 02/09/19 04502/09/19 045 Medications Medications Current Medications Pantoprazole (Protonix Tab) 40 mg BID@06,18 PO Last administered on 02/09/19 05:47; Admin Dose 40 MG; Start 02/03/19 at 18:00 Levothyroxine Sodium (Synthroid) 50 mcg DAILY@06 PO Last administered on 02/09/19 05:47; Admin Dose 50 MCG; Start 02/04/19 at 06:00 Gabapentin (Neurontin) 300 mg HS PO Last administered on 02/08/19 21:03; Admin Dose 300 MG; Start 02/03/19 at 21:00 Carbidopa/Levodopa (Sinemet (25/ 100)) 1 tab TID PO Last administered on 02/09/19 13:03; Admin Dose 1 TAB; Start 02/03/19 at 21:00 Ferrous Sulfate (Ferrous Sulfate (Ec)) 325 mg TID PO Last administered on 02/09/19 13:03; Admin Dose 325 MG; Start 02/03/19 at 21:00 Diphenhydramine HCl (Benadryl) 25 mg HS PRN PO insomnia; Start 02/03/19 at 16:00 Mupirocin (Bactroban) 1 applic BID TOP Last administered on 02/09/19 09:02; Admin Dose 1 APPLIC; Start 02/03/19 at 21:00 Aspirin (Halfprin) 81 mg DAILY PO Last administered on 02/09/19 08:58; Admin Dose 81 MG; Start 02/05/19 at 09:00 Benazepril HCl (Lotensin) 40 mg DAILY PO Last administered on 02/09/19 08:58; Admin Dose 40 MG; Start 02/04/19 at 14:30 Clopidogrel Bisulfate (plaVIX) 75 mg DAILY PO Last administered on 02/09/19 08:59; Admin Dose 75 MG; Start 02/04/19 at 14:30 Furosemide (Lasix) 20 mg DAILY IV Last administered on 02/09/19 09:00; Admin Dose 20 MG; Start 02/06/19 at 14:30 Tramadol HCl (Ultram) 50 mg Q6H PRN PO MODERATE PAIN LEVEL 4-6 Last administered on 02/09/19 09:43; Admin Dose 50 MG; Start 02/07/19 at 16:30 Docusate Sodium (Colace) 100 mg BID PO Last administered on 02/09/19 08:59; Admin Dose 100 MG; Start 02/07/19 at 18:00 Acetaminophen (Tylenol Tab) 650 mg Q6H PRN PO MILD PAIN(1-3)OR ELEVATED TEMP Last administered on 02/09/19 13:09; Admin Dose 650 MG; Start 02/07/19 at 22:00 Gabapentin (Neurontin) 100 mg BID PO Last administered on 02/09/19 08:59; Adm in Dose 100 MG; Start 02/08/19 at 21:00 Sodium Biphosphate/ Sodium Phosphate (Fleet Enema) 133 ml DAILY PRN [place] CONSTIPATION Last administered on 02/08/19 18:15; Admin Dose 133 ML; Start 02/08/19 at 13:30 VTE Prophylaxis Risk score (from Ns)>0 risk: 8 SCD applied (from Nsg): No SCD contraindication: other (s/p vasc surg) Pharmacological prophylaxis: apixaban, other (aspirin) Lines/Catheters IV Catheter Type: Saline Lock Central line still needed: No Morgan in Place: No Assessment/Plan Assessment/Plan 1. s/p rt fem-pop #6/ edema +2-3 2. lf sub acute cva 3. weak/ slight dementia--cannot walk 4. anxiety 5. parkinson's/ balance-gait ds 6. htn 7. poor pain manage ---per vasc surg ---d/c morgan ---d/c ivf ---awaiting acute rehab eval, meantime full PT exercise ---inc DULCE Hunt MD Feb 09, 2019 13:46
[2019-02-09 15:29] VITALS: BP 123/59; PULSE 70; RESP 18
[2019-02-09 20:00] VITALS: BP 128/61; PULSE 68; RESP 18
[2019-02-09] MEDS: DIPHENHYDRAMINE 25 MG CAP PO SCH (20:46)
[2019-02-09] MEDS: GABAPENTIN 300 MG CAP PO SCH (20:54)
[2019-02-10] VITALS (7 sets, daily range): BP systolic 136–182; BP diastolic 64–77; PULSE 69–76; RESP 18–20
[2019-02-10] MEDS: LEVOTHYROXINE 50 MCG TAB PO SCH (05:51)
[2019-02-10] MEDS: PANTOPRAZOLE (EC) 40 MG TAB PO SCH ×2 (05:51→18:04)
[2019-02-10] MEDS: DOCUSATE SODIUM 100 MG CAP PO SCH ×2 (08:23→20:21)
[2019-02-10] MEDS: BENAZEPRIL 40 MG TAB PO SCH (08:23)
[2019-02-10] MEDS: FERROUS SULFATE (EC) 325 MG TAB PO SCH ×3 (08:23→20:22)
[2019-02-10] MEDS: CLOPIDOGREL 75 MG TAB PO SCH (08:23)
[2019-02-10] MEDS: GABAPENTIN 100 MG CAP PO SCH ×3 (08:24→20:21)
[2019-02-10] MEDS: CARBIDOPA/LEVODOPA (25/100) TAB PO SCH ×3 (08:24→20:22)
[2019-02-10] MEDS: ASPIRIN (EC) 81 MG TAB PO SCH (08:24)
[2019-02-10] MEDS: MUPIROCIN 2% 22 GM OINT TOP SCH ×2 (08:26→20:22)
--- NOTE | 2019-02-10 08:52 | PN ---
Date/Time of Note Date/Time of Note DATE: 02/10/19 TIME: 08:28 Assessment/Plan Lines/Catheters IV Catheter Type (from Nrsg): Central Line Zepeda in Place (from Nrsg): Yes Assessment/Plan Assessment/Plan Doing well s/p R fem-pop, graft is patent with good pedal perfusion, ankle ulcer is wrapped Continue PT, ISSA wrap and leg elevation May benefit from acute rehab Remove central line Subjective 24 Hr Interval Summary Feeling much better, no pain, feeling stronger. Eating well. She had a small stroke seen on CT brain, no focal neurologic symptoms. Exam/Review of Systems Vital Signs Vitals Vital Signs Date Temp Pulse Resp B/P (MAP) Pulse Ox O2 O2 Flow FiO2 Time Delivery Rate 02/10/19 97.9 71 20 148/65 98 Nasal 07:20 (92) Cannula Intake and Output 02/09/19 02/09/19 02/10/19 1515:00 23:00 07:00 IntakeIntake Total 300 ml 400 ml OutputOutput Total 500 ml BalanceBalance -500 ml 300 ml 400 ml Exam Free Text/Dictation R leg with ISSA wrap, edema much less, foot is warm and pink with normal motor and sensory function Results Result Diagram: 02/09/19 0451 02/09/19 0450 ALLY DAY MD Feb 10, 2019 08:52
[2019-02-10] MEDS ORDERED: FUROSEMIDE 20 MG INJ IV SCH (09:00)
[2019-02-10] MEDS: traMADol 50 MG TAB PO PRN (09:23)
--- NOTE | 2019-02-10 09:30 | CONS ---
Assessment/Plan Assessment/Plan Assessment/Plan (Daily) Right ankle chronic venous ulceration Arteriovenous insufficiency, status post right femoropopliteal bypass graft with in situ greater saphenous Anemia Hypothyroidism Edema Plan Discussed findings with patient and family at bedside. Recommend to continue with light compression and betadine wet to dry dressing changes. Patient to elevate and offload lower extremity to assist with edema control. Discussed possible future plan of skin grafting to assist with wound closure. Consultation Date/Type/Reason Admit Date/Time Feb 03, 2019 at 06:14 Initial Consult Date Date/Time of Note DATE: 02/10/19 TIME: 09:30 24 HR Interval Summary Free Text/Dictation No acute events overnight. Exam/Review of Systems Exam Vitals Vital Signs Date Temp Pulse Resp B/P (MAP) Pulse Ox O2 O2 Flow FiO2 Time Delivery Rate 02/10/19 97.9 71 20 148/65 98 Nasal 07:20 (92) Cannula Intake and Output 02/09/19 02/09/19 02/10/19 1515:00 23:00 07:00 IntakeIntake Total 300 ml 400 ml OutputOutput Total 500 ml BalanceBalance -500 ml 300 ml 400 ml Exam warm right lower extremity, mild to moderate edema, venous stasis hyperpigmentation, ulceration to the right medial ankle. Dressings clean, dry, intact. 2+ pitting edema Right medial ankle ulceration site 3 x 3 x 0.2cm granular with maceration noted No purulence, no proximal streaking, no probing to bone. Results Result Diagram: 02/09/19 0451 02/09/19 0450 Results 24hrs Laboratory Tests Test 02/10/19 04:46 B-Type Natriuretic Peptide 632 H Medications Medication Current Medications Pantoprazole (Protonix Tab) 40 mg BID@06,18 PO Last administered on 02/10/19at 05:51; Admin Dose 40 MG; Start 02/03/19 at 18:00 Levothyroxine Sodium (Synthroid) 50 mcg DAILY@06 PO Last administered on 02/10/19at 05:51; Admin Dose 50 MCG; Start 02/04/19 at 06:00 Gabapentin (Neurontin) 300 mg HS PO Last administered on 02/09/19at 20:54; Admin Dose 300 MG; Start 02/03/19 at 21:00 Carbidopa/Levodopa (Sinemet (25/ )) 1 tab TID PO Last administered on 02/10/19 08:24; Admin Dose 1 TAB; Start 02/03/19 at 21:00 Ferrous Sulfate (Ferrous Sulfate (Ec)) 325 mg TID PO Last administered on 02/10/19 08:23; Admin Dose 325 MG; Start 02/03/19 at 21:00 Mupirocin (Bactroban) 1 applic BID TOP Last administered on 02/10/19 08:26; Admin Dose 1 APPLIC; Start 02/03/19 at 21:00 Aspirin (Halfprin) 81 mg DAILY PO Last administered on 02/10/19 08:24; Admin Dose 81 MG; Start 02/05/19 at 09:00 Benazepril HCl (Lotensin) 40 mg DAILY PO Last administered on 02/10/19 08:23; Admin Dose 40 MG; Start 02/04/19 at 14:30 Clopidogrel Bisulfate (plaVIX) 75 mg DAILY PO Last administered on 02/10/19 08:23; Admin Dose 75 MG; Start 02/04/19 at 14:30 Tramadol HCl (Ultram) 50 mg Q6H PRN PO MODERATE PAIN LEVEL 4-6 Last administered on 02/10/19 09:23; Admin Dose 50 MG; Start 02/07/19 at 16:30 Docusate Sodium (Colace) 100 mg BID PO Last administered on 02/10/19 08:23; Admin Dose 100 MG; Start 02/07/19 at 18:00 Acetaminophen (Tylenol Tab) 650 mg Q6H PRN PO MILD PAIN(1-3)OR ELEVATED TEMP Last administered on 02/09/19 13:09; Admin Dose 650 MG; Start 02/07/19 at 22:00 Sodium Biphosphate/ Sodium Phosphate (Fleet Enema) 133 ml DAILY PRN [place] CONSTIPATION Last administered on 02/08/19 18:15; Admin Dose 133 ML; Start 02/08/19 at 13:30 Diphenhydramine HCl (Benadryl) 25 mg HS PO Last administered on 02/09/19 20 :46; Admin Dose 25 MG; Start 02/09/19 at 21:00 Gabapentin (Neurontin) 100 mg TID PO Last administered on 02/10/19 08:24; Admin Dose 100 MG; Start 02/09/19 at 21:00 Furosemide (Lasix) 40 mg DAILY IV ; Start 02/11/19 at 09:00 CHANDU KURTZ DPM Feb 10, 2019 09:30
[2019-02-10] MEDS: ACETAMINOPHEN 325 MG TAB PO PRN (11:12)
--- NOTE | 2019-02-10 15:25 | PN ---
Date/Time of Note Date/Time of Note DATE: 02/10/19 TIME: 15:25 Subjective did not participate in today's PT exercise, weak Objective Vitals Vital Signs Date Temp Pulse Resp B/P (MAP) Pulse Ox O2 O2 Flow FiO2 Time Delivery Rate 02/10/19 97.5 69 20 142/64 97 Room Air 15:22 (90) Intake and Output 02/09/19 02/09/19 02/10/19 1515:00 23:00 07:00 IntakeIntake Total 300 ml 400 ml OutputOutput Total 500 ml BalanceBalance -500 ml 300 ml 400 ml in bed, ate fully, drank fluid well, rt front thigh near fem-pop sight with blister rashes, rt med ankle wound still big & open+, rr syst m+, cta, Results Result Diagram: 02/09/1945002/09/19449 Medications Medications Current Medications Pantoprazole (Protonix Tab) 40 mg BID@06,18 PO Last administered on 02/10/19 05:51; Admin Dose 40 MG; Start 02/03/19 at 18:00 Levothyroxine Sodium (Synthroid) 50 mcg DAILY@06 PO Last administered on 05:51; Admin Dose 50 MCG; Start 02/04/19 at 06:00 Gabapentin (Neurontin) 300 mg HS PO Last administered on 02/09/19 20:54; Admin Dose 300 MG; Start 02/03/19 at 21:00 Carbidopa/Levodopa (Sinemet (25/ 100)) 1 tab TID PO Last administered on 02/10/19 13:16; Admin Dose 1 TAB; Start 02/03/19 at 21:00 Ferrous Sulfate (Ferrous Sulfate (Ec)) 325 mg TID PO Last administered on 02/10/19 13:16; Admin Dose 325 MG; Start 02/03/19 at 21:00 Mupirocin (Bactroban) 1 applic BID TOP Last administered on 02/10/19 08:26; Admin Dose 1 APPLIC; Start 02/03/19 at 21:00 Aspirin (Halfprin) 81 mg DAILY PO Last administered on 02/10/19 08:24; Admin Dose 81 MG; Start 02/05/19 at 09:00 Benazepril HCl (Lotensin) 40 mg DAILY PO Last administered on 02/10/19 08:23; Admin Dose 40 MG; Start 02/04/19 at 14:30 Clopidogrel Bisulfate (plaVIX) 75 mg DAILY PO Last administered on 02/10/19 08:23; Admin Dose 75 MG; Start 02/04/19 at 14:30 Tramadol HCl (Ultram) 50 mg Q6H PRN PO MODERATE PAIN LEVEL 4-6 Last administered on 02/10/19 09:23; Admin Dose 50 MG; Start 02/07/19 at 16:30 Docusate Sodium (Colace) 100 mg BID PO Last administered on 02/10/19 08:23; Admin Dose 100 MG; Start 02/07/19 at 18:00 Acetaminophen (Tylenol Tab) 650 mg Q6H PRN PO MILD PAIN(1-3)OR ELEVATED TEMP Last administered on 02/10/19 11:12; Admin Dose 650 MG; Start 02/07/19 at 22:00 Sodium Biphosphate/ Sodium Phosphate (Fleet Enema) 133 ml DAILY PRN [place] CONSTIPATION Last administered on 02/08/19 18:15; Admin Dose 133 ML; Start 02/08/19 at 13:30 Diphenhydramine HCl (Benadryl) 25 mg HS PO Last administered on 02/09/19 20: 46; Admin Dose 25 MG; Start 02/09/19 at 21:00 Gabapentin (Neurontin) 100 mg TID PO Last administered on 02/10/19 13:16; Admin Dose 100 MG; Start 02/09/19 at 21:00 Furosemide (Lasix) 40 mg DAILY IV ; Start 02/11/19 at 09:00 VTE Prophylaxis Risk score (from Nsg)>0 risk: 8 SCD applied (from Nsg): No SCD contraindication: other (s/p vasc surg) Pharmacological prophylaxis: apixaban, other (aspirin) Lines/Catheters IV Catheter Type: Saline Lock Central line still needed: No Morgan in Place: Yes Cont'd morgan catheter reason: skin wounds contaminated by urine, terminal illness/intractable pain Assessment/Plan Assessment/Plan 1. s/p rt fem-pop #7--slow recovery, still with much pain, still with open skin wounds, still with 1-2+ pit edema 2. lf cva 3. chr neurocysticercosis 4. parkinson's/ balance-gait ds 5. mild dementia/ anxiety-depression/ low motivation for oob exercise--may not be able to tolerate 3hr?d rehab exercises 6. htn ---per vasc ---must participate fully with PT to be evaluated for acute rehab admission ---inc gabapentin ---reinsert eddie to keep skin wounds dry & healin ---ID ref for skin wounds care DULCE BENNETT MD Feb 10, 2019 15:25
[2019-02-10] MEDS: DIPHENHYDRAMINE 25 MG CAP PO SCH (20:21)
[2019-02-10] MEDS: GABAPENTIN 300 MG CAP PO SCH (20:22)
[2019-02-11 04:00] VITALS: BP 142/63; PULSE 69; RESP 18
[2019-02-11] MEDS: LEVOTHYROXINE 50 MCG TAB PO SCH (05:16)
[2019-02-11] MEDS: PANTOPRAZOLE (EC) 40 MG TAB PO SCH ×2 (05:16→18:19)
[2019-02-11 07:44] VITALS: BP 160/69; PULSE 69; RESP 20
[2019-02-11] MEDS: CARBIDOPA/LEVODOPA (25/100) TAB PO SCH ×3 (08:42→20:31)
[2019-02-11] MEDS: FUROSEMIDE 40 MG INJ IV SCH (08:42)
[2019-02-11] MEDS: CLOPIDOGREL 75 MG TAB PO SCH (08:42)
[2019-02-11] MEDS: GABAPENTIN 100 MG CAP PO SCH ×3 (08:42→20:28)
[2019-02-11] MEDS: DOCUSATE SODIUM 100 MG CAP PO SCH ×2 (08:42→21:12)
[2019-02-11] MEDS: MUPIROCIN 2% 22 GM OINT TOP SCH ×2 (08:43→20:33)
[2019-02-11] MEDS: ASPIRIN (EC) 81 MG TAB PO SCH (08:43)
[2019-02-11] MEDS: FERROUS SULFATE (EC) 325 MG TAB PO SCH ×3 (08:43→21:12)
[2019-02-11] MEDS: BENAZEPRIL 40 MG TAB PO SCH (08:43)
[2019-02-11] MEDS: traMADol 50 MG TAB PO PRN (11:04)
[2019-02-11 11:54] VITALS: BP 116/57; PULSE 63; RESP 20
--- NOTE | 2019-02-11 13:30 | CONS ---
DATE OF ADMISSION: 02/03/2019 DATE OF CONSULTATION: 02/11/2019 INFECTIOUS DISEASE CONSULT REASON FOR CONSULTATION: Antibiotic management. HISTORY OF PRESENT ILLNESS: Fernanda Pires is an 83-year-old female who was admitted and underwent aleksey esau by Dr. Ally Day for nonhealing ulcer of the right distal calf and superficial femoral artery occlusion. He performed a right femoral-popliteal bypass using in situ greater saphenous vein. He a lso did an endoscopic side branch ligation. The patient was intubated during the procedure without c omplications. She has peripheral vascular disease. Other problems include: 1. Chronic renal disease, stage II. 2. Hypertension. 3. Parkinson's disease. 4. Chronic right lower extremity skin ulceration and cellulitis. 5. Anemia. 6. Anxiety and depression. 7. Very large hiatal hernia causing GERD. She was seen by Dr. Mora on February 03. He also noted hypertension, hypothyroidism, peripheral john ropathy, chronic renal disease, GERD and hiatal hernia as well as anemia. He felt she had a right an kle ulceration which was chronic arteriovenous insufficiency, status post right femoropopliteal bypas s graft with in situ greater saphenous. Discussed options for wound closure. The patient was seen by Dr. Zhao also podiatry, Dr. Mora's partner. He noted right ankle chronic venous ulceratio n, arteriovenous insufficiency, status post bypass graft. He recommended light compression and Betad ine wet to dry dressings. The patient to elevate and offload lower extremity and assist with edema c ontrol. Discussed possible future plans for skin grafting to assess wound culture. On February 07, ite count was 9.8, H and H of 8.5 and 28.5, platelet count 236,000. BUN and creatinine 16/0.99. Uri nalysis was negative for nitrites and leukocyte esterase. The patient had 71% neutrophils. Dr. Raymundo saw her on February 08 felt that she was doing well status post fem-pop, still very edematous. Keep r ight leg elevated and Alden wrap from foot to groin. The patient has venous stasis hyperpigmentation a nd ulceration to the right medial ankle with 2+ pitting edema. IMPRESSION AND PLAN: At the present time, she is off of all antibiotic therapy and being treated loc ally. We will continue her on this current therapy. I will await culture reports if they were done. I will dictate my findings to Dr. Riley, Dr. Day, Dr. Mora and Dr. Zhao. Dictated By: BECKIE HEREDIA MD, JD/IRENE Conf#: [id number] DID#: [id number] CC: ALLY DAY MD; BECKIE HEREDIA MD;*EndCC*
[2019-02-11 15:41] VITALS: BP 127/56; PULSE 72; RESP 18
--- NOTE | 2019-02-11 17:32 | PN ---
Date/Time of Note Date/Time of Note DATE: 02/11/19 TIME: 17:32 Assessment/Plan VTE Prophylaxis Risk score (from [facility] [place])>0 risk: 16 SCD applied (from [facility] [place]): No SCD contraindicated: bilateral LE trauma Pharmacological prophylaxis: NA/contraindicated Pharm contraindication: surgical contra, renal impairment Lines/Catheters IV Catheter Type (from [facility]): Saline Lock Urinary Cath still in place: Yes Reason Cath still needed: skin wounds contaminated by urine Assessment/Plan Problems: (1) Peripheral vascular disease Status: Chronic Comment: s/p right fem-pop day 8 with persistent weakness. Unable to go home safely. Being evaluated for rehab facility. (2) Edema Status: Acute Comment: multifactorial, due to kidney disease, chf and dependency . Check prealbumin for malnutrition. Lasix started today, will follow I's and O's. (3) Parkinson disease Status: Chronic Comment: Continue Sinemet. Expect slower musculoskeletal recovery with physical therapy. (4) Hypertension Status: Chronic (5) Chronic kidney disease Status: Chronic (6) Leg wound, right Status: Acute Comment: Will consult wound care team regarding chronic lower leg wound and new right thigh blister wounds. Result Diagram: 02/11/198 02/11/198 Results 24hrs Laboratory Tests Test 02/11/19 04:48 White Blood Count 8.4 Red Blood Count 3.48 L Hemoglobin 9.0 L Hematocrit 29.2 L Mean Corpuscular Volume 83.9 Mean Corpuscular Hemoglobin 25.9 L Mean Corpuscular Hemoglobin Concent 30.8 L Red Cell Distribution Width 16.6 H Platelet Count 332 # Mean Platelet Volume 8.8 Immature Granulocytes % 1.000 H Neutrophils % 70.9 Lymphocytes % 12.4 L Monocytes % 8.5 Eosinophils % 6.6 Basophils % 0.6 Nucleated Red Blood Cells % 0.0 Immature Granulocytes # 0.080 H Neutrophils # 5.9 Lymphocytes # 1.0 Monocytes # 0.7 Eosinophils # 0.6 H Basophils # 0.1 Nucleated Red Blood Cells # 0.0 Sodium Level 137 Potassium Level 3.7 Chloride Level 100 Carbon Dioxide Level 32 H Anion Gap 5 Blood Urea Nitrogen 25 H Creatinine 0.98 Est Glomerular Filtrat Rate mL/min Glucose Level 106 Calcium Level 9.0 Magnesium Level 1.7 B-Type Natriuretic Peptide 610 H Subjective 24 Hr Interval Summary Free Text/Dictation Patient still very weak from recent surgery but reports that she has been getting progressively weaker at home for the past year from parkinson's and from lack of activity due to pain. Exam/Review of Systems Exam Vitals Vital Signs Date Temp Pulse Resp B/P (MAP) Pulse Ox O2 O2 Flow FiO2 Time Delivery Rate 02/11/19 97.9 72 18 127/56 97 Room Air 15:41 (79) Intake and Output 02/10/19 02/10/19 02/11/19 1515:00 23:00 07:00 IntakeIntake Total 800 ml 300 ml OutputOutput Total 4 ml 450 ml 400 ml BalanceBalance -4 ml 350 ml -100 ml Exam Nursing reports right upper thigh drainage from blisters/edema. Constitutional: alert, oriented Head: normocephalic, atraumatic ENMT: nl external ears & nose Respiratory: clear to auscultation Cardiovascular: regular rate and rhythm Gastrointestinal: soft, non-tender Extremities: edema, other (right leg pressure dressing from thigh to toes but there are large blisters of right medial upper thigh draining clear yellow fluid.) Results Results 24hrs Laboratory Tests Test 02/11/19 04:48 White Blood Count 8.4 Red Blood Count 3.48 L Hemoglobin 9.0 L Hematocrit 29.2 L Mean Corpuscular Volume 83.9 Mean Corpuscular Hemoglobin 25.9 L Mean Corpuscular Hemoglobin Concent 30.8 L Red Cell Distribution Width 16.6 H Platelet Count 332 # Mean Platelet Volume 8.8 Immature Granulocytes % 1.000 H Neutrophils % 70.9 Lymphocytes % 12.4 L Monocytes % 8.5 Eosinophils % 6.6 Basophils % 0.6 Nucleated Red Blood Cells % 0.0 Immature Granulocytes # 0.080 H Neutrophils # 5.9 Lymphocytes # 1.0 Monocytes # 0.7 Eosinophils # 0.6 H Basophils # 0.1 Nucleated Red Blood Cells # 0.0 Sodium Level 137 Potassium Level 3.7 Chloride Level 100 Carbon Dioxide Level 32 H Anion Gap 5 Blood Urea Nitrogen 25 H Creatinine 0.98 Est Glomerular Filtrat Rate mL/min Glucose Level 106 Calcium Level 9.0 Magnesium Level 1.7 B-Type Natriuretic Peptide 610 H Medications Medication Current Medications Pantoprazole (Protonix Tab) 40 mg BID@06,18 PO Last administered on 02/11/19at 05:16; Admin Dose 40 MG; Start 7/19/19 at 18:00 Levothyroxine Sodium (Synthroid) 50 mcg DAILY@06 PO Last administered on 02/11/19 05:16; Admin Dose 50 MCG; Start 02/04/19 at 06:00 Gabapentin (Neurontin) 300 mg HS PO Last administered on 02/09/19 20:54; Admin Dose 300 MG; Start 02/03/19 at 21:00 Carbidopa/Levodopa (Sinemet (/ )) 1 tab TID PO Last administered on 02/11/19 13:22; Admin Dose 1 TAB; Start 02/03/19 at 21:00 Ferrous Sulfate (Ferrous Sulfate (Ec)) 325 mg TID PO Last administered on 02/11/19 13:22; Admin Dose 325 MG; Start 02/03/19 at 21:00 Mupirocin (Bactroban) 1 applic BID TOP Last administered on 02/11/19 08:43; Admin Dose 1 APPLIC; Start 02/03/19 at 21:00 Aspirin (Halfprin) 81 mg DAILY PO Last administered on 02/11/19 08:43; Admin Dose 81 MG; Start 02/05/19 at 09:00 Benazepril HCl (Lotensin) 40 mg DAILY PO Last administered on 02/11/19 08:43; Admin Dose 40 MG; Start 02/04/19 at 14:30 Clopidogrel Bisulfate (plaVIX) 75 mg DAILY PO Last administered on 02/11/19 08:42; Admin Dose 75 MG; Start 02/04/19 at 14:30 Tramadol HCl (Ultram) 50 mg Q6H PRN PO MODERATE PAIN LEVEL 4-6 Last administered on 02/11/19 11:04; Admin Dose 50 MG; Start 02/07/19 at 16:30 Docusate Sodium (Colace) 100 mg BID PO Last administered on 02/11/19 08:42; Admin Dose 100 MG; Start 02/07/19 at 18:00 Acetaminophen (Tylenol Tab) 650 mg Q6H PRN PO MILD PAIN(1-3)OR ELEVATED TEMP Last administered on 02/10/19 11:12; Admin Dose 650 MG; Start 02/07/19 at 22:00 Sodium Biphosphate/ Sodium Phosphate (Fleet Enema) 133 ml DAILY PRN [place] CONSTIPATION Last administered on 02/08/19 18:15; Admin Dose 133 ML; Start 02/08/19 at 13:30 Diphenhydramine HCl (Benadryl) 25 mg HS PO Last administered on 02/10/19 20:21; Admin Dose 25 MG; Start 02/09/19 at 21:00 Gabapentin (Neurontin) 100 mg TID PO Last administered on 02/11/19 13:22; Admin Dose 100 MG; Start 02/09/19 at 21:00 Furosemide (Lasix) 40 mg DAILY IV Last administered on 02/11/19 08:42; Admin Dose 40 MG; Start 02/11/19 at 09:00 ISSAC SOSA MD Feb 11, 2019 17:32
[2019-02-11 19:59] VITALS: BP 130/62; PULSE 72; RESP 19
[2019-02-11] MEDS: GABAPENTIN 300 MG CAP PO SCH (20:28)
[2019-02-11] MEDS: DIPHENHYDRAMINE 25 MG CAP PO SCH (20:31)
[2019-02-12] VITALS (7 sets, daily range): BP systolic 108–157; BP diastolic 55–68; PULSE 57–77; RESP 18–21
[2019-02-12] MEDS: LEVOTHYROXINE 50 MCG TAB PO SCH (05:21)
[2019-02-12] MEDS: PANTOPRAZOLE (EC) 40 MG TAB PO SCH ×2 (05:21→17:19)
[2019-02-12] MEDS: BENAZEPRIL 40 MG TAB PO SCH (08:44)
[2019-02-12] MEDS: GABAPENTIN 100 MG CAP PO SCH ×3 (08:44→21:56)
[2019-02-12] MEDS: FERROUS SULFATE (EC) 325 MG TAB PO SCH ×3 (08:44→21:56)
[2019-02-12] MEDS: FUROSEMIDE 40 MG INJ IV SCH (08:44)
[2019-02-12] MEDS: CARBIDOPA/LEVODOPA (25/100) TAB PO SCH ×3 (08:44→21:56)
[2019-02-12] MEDS: DOCUSATE SODIUM 100 MG CAP PO SCH ×2 (08:45→21:56)
[2019-02-12] MEDS: ASPIRIN (EC) 81 MG TAB PO SCH (08:45)
[2019-02-12] MEDS: CLOPIDOGREL 75 MG TAB PO SCH (08:45)
[2019-02-12] MEDS: MUPIROCIN 2% 22 GM OINT TOP SCH ×2 (08:46→21:57)
[2019-02-12] MEDS: NA PHOSPHATE/BIPHOS 133 ML ENEMA PR PRN (13:07)
--- NOTE | 2019-02-12 15:44 | PN ---
Date/Time of Note Date/Time of Note DATE: 02/12/19 TIME: 15:38 Assessment/Plan VTE [place]axis [place] [facility] [place]: 11 [place] [facility] [place] SCD contraindicated: bilateral LE trauma Pharmacological prophylaxis: NA/contraindicated Pharm contraindication: surgical contra, renal impairment Lines/Catheters IV [facility] Type ([facility] Saline Lock Urinary Cath still in place: Yes Reason Cath still needed: skin wounds contaminated by urine Assessment/Plan Assessment/Plan (1) Peripheral vascular disease Status: Chronic Comment: s/p right fem-pop day 9 with persistent weakness. Unable to go home safely, being evaluated for rehab facility. (2) Edema Status: Acute Comment: multifactorial, due to kidney disease, chf and dependency . Good diuretic response to Lasix started yesterday, continue diuresis. (3) Parkinson disease Status: Chronic Comment: Continue Sinemet. Expect slower musculoskeletal recovery with physical therapy. (4) Hypertension Status: Chronic Comment: Stable on meds (5) Chronic kidney disease Status: Chronic Comment: Monitor cbc and bmp with diuresis. (6) Leg wounds, right Status: Acute Comment: Continue wound care to chronic right lower leg wound and new right thigh blister wounds. Result Diagram: 02/12/19 0454 02/12/19 0454 Results 24hrs Laboratory Tests Test 02/12/19 04:54 White Blood Count 11.1 #H Red Blood Count 3.73 L Hemoglobin 9.6 L Hematocrit 31.5 L Mean Corpuscular Volume 84.5 Mean Corpuscular Hemoglobin 25.7 L Mean Corpuscular Hemoglobin Concent 30.5 L Red Cell Distribution Width 17.1 H Platelet Count 377 Mean Platelet Volume 8.8 Immature Granulocytes % 1.100 H Neutrophils % 71.7 Lymphocytes % 11.3 L Monocytes % 7.9 Eosinophils % 7.3 H Basophils % 0.7 Nucleated Red Blood Cells % 0.0 Immature Granulocytes # 0.120 H Neutrophils # 7.9 H Lymphocytes # 1.3 Monocytes # 0.9 Eosinophils # 0.8 H Basophils # 0.1 Nucleated Red Blood Cells # 0.0 Sodium Level 140 Potassium Level 4.0 Chloride Level 102 Carbon Dioxide Level 31 Anion Gap 7 Blood Urea Nitrogen 23 H Creatinine 0.91 Est Glomerular Filtrat Rate mL/min Glucose Level 97 Calcium Level 9.1 Total Bilirubin 0.3 Direct Bilirubin 0.00 Indirect Bilirubin 0.3 Aspartate Amino Transf (AST/SGOT) 55 H Alanine Aminotransferase (ALT/SGPT) 31 Alkaline Phosphatase 66 Total Protein 6.4 Albumin 3.0 L Globulin 3.40 H Albumin/Globulin Ratio 0.88 Prealbumin 17.3 L Thyroid Stimulating Hormone (TSH) 11.000 H Thyroxine (T4) 7.3 Subjective 24 Hr Interval Summary Free Text/Dictation Patient awake and alert, reports no more seepage from right thigh blisters Exam/Review of Systems Exam Vitals Vital Signs Date Temp Pulse Resp B/P (MAP) Pulse Ox O2 O2 Flow FiO2 Time Delivery Rate 02/12/19 98.1 70 19 144/65 96 15:28 (91) 02/12/19 Room Air 04:01 Intake and Output 02/11/19 02/11/19 02/12/19 1515:00 23:00 07:00 IntakeIntake Total 200 ml 500 ml 490 ml OutputOutput Total 1250 ml 800 ml 1950 ml BalanceBalance -1050 ml -300 ml -1460 ml Exam Awake and alert Psych: no complaints Head: normocephalic, atraumatic ENMT: nl external ears & nose Respiratory: clear to auscultation Cardiovascular: regular rate and rhythm Gastrointestinal: soft, non-tender Extremities: edema (in dependent areas of sacrum and upper thighs) Skin: other (Right thigh dressing clean and dry, Right leg ISSA bandage) Results Results 24hrs Laboratory Tests Test 02/12/19 04:54 White Blood Count 11.1 #H Red Blood Count 3.73 L Hemoglobin 9.6 L Hematocrit 31.5 L Mean Corpuscular Volume 84.5 Mean Corpuscular Hemoglobin 25.7 L Mean Corpuscular Hemoglobin Concent 30.5 L Red Cell Distribution Width 17.1 H Platelet Count 377 Mean Platelet Volume 8.8 Immature Granulocytes % 1.100 H Neutrophils % 71.7 Lymphocytes % 11.3 L Monocytes % 7.9 Eosinophils % 7.3 H Basophils % 0.7 Nucleated Red Blood Cells % 0.0 Immature Granulocytes # 0.120 H Neutrophils # 7.9 H Lymphocytes # 1.3 Monocytes # 0.9 Eosinophils # 0.8 H Basophils # 0.1 Nucleated Red Blood Cells # 0.0 Sodium Level 140 Potassium Level 4.0 Chloride Level 102 Carbon Dioxide Level 31 Anion Gap 7 Blood Urea Nitrogen 23 H Creatinine 0.91 Est Glomerular Filtrat Rate mL/min Glucose Level 97 Calcium Level 9.1 Total Bilirubin 0.3 Direct Bilirubin 0.00 Indirect Bilirubin 0.3 Aspartate Amino Transf (AST/SGOT) 55 H Alanine Aminotransferase (ALT/SGPT) 31 Alkaline Phosphatase 66 Total Protein 6.4 Albumin 3.0 L Globulin 3.40 H Albumin/Globulin Ratio 0.88 Prealbumin 17.3 L Thyroid Stimulating Hormone (TSH) 11.000 H Thyroxine (T4) 7.3 Medications Medication Current Medications Pantoprazole (Protonix Tab) 40 mg BID@06,18 PO Last administered on 02/12/19 05:21; Admin Dose 40 MG; Start 02/03/19 at 18:00 Levothyroxine Sodium (Synthroid) 50 mcg DAILY@06 PO Last administered on 02/12/19 05:21; Admin Dose 50 MCG; Start 02/04/19 at 06:00 Gabapentin (Neurontin) 300 mg HS PO Last administered on 02/11/19 20:28; Admin Dose 300 MG; Start 02/03/19 at 21:00 Carbidopa/Levodopa (Sinemet (25/ 100)) 1 tab TID PO Last administered on 02/12/19 13:05; Admin Dose 1 TAB; Start 02/03/19 at 21:00 Ferrous Sulfate (Ferrous Sulfate (Ec)) 325 mg TID PO Last administered on 02/12/19 13:05; Admin Dose 325 MG; Start 02/03/19 at 21:00 Mupirocin (Bactroban) 1 applic BID TOP Last administered on 02/12/19 08:46; Admin Dose 1 APPLIC; Start 02/03/19 at 21:00 Aspirin (Halfprin) 81 mg DAILY PO Last administered on 02/12/19 08:45; Admin Dose 81 MG; Start 02/05/19 at 09:00 Benazepril HCl (Lotensin) 40 mg DAILY PO Last administered on 02/12/19 08:44; Admin Dose 40 MG; Start 02/04/19 at 14:30 Clopidogrel Bisulfate (plaVIX) 75 mg DAILY PO Last administered on 02/12/19 08:45; Admin Dose 75 MG; Start 02/04/19 at 14:30 Tramadol HCl (Ultram) 50 mg Q6H PRN PO MODERATE PAIN LEVEL 4-6 Last administered on 02/11/19 11:04; Admin Dose 50 MG; Start 02/07/19 at 16:30 Docusate Sodium (Colace) 100 mg BID PO Last administered on 02/12/19 08:45; Admin Dose 100 MG; Start 02/07/19 at 18:00 Acetaminophen (Tylenol Tab) 650 mg Q6H PRN PO MILD PAIN(1-3)OR ELEVATED TEMP Last administered on 02/10/19 11:12; Admin Dose 650 MG; Start 02/07/19 at 22:00 Sodium Biphosphate/ Sodium Phosphate (Fleet Enema) 133 ml DAILY PRN [place] CONSTIPATION Last administered on 02/12/19 13:07; Admin Dose 133 ML; Start 02/08/19 at 13:30 Diphenhydramine HCl (Benadryl) 25 mg HS PO Last administered on 02/11/19 20:31; Admin Dose 25 MG; Start 02/09/19 at 21:00 Gabapentin (Neurontin) 100 mg TID PO Last administered on 02/12/19 13:05; Admin Dose 100 MG; Start 02/09/19 at 21:00 Furosemide (Lasix) 40 mg DAILY IV Last administered on 02/12/19 08:44; Admin Dose 40 MG; Start 02/11/19 at 09:00 ISSAC SOSA MD Feb 12, 2019 15:44
--- NOTE | 2019-02-12 19:10 | PN ---
DATE: 02/12/2019 SUBJECTIVE: The patient is alert, looks comfortable. Denies pain, no fevers. Family at bedside. WBC today 11.1, platelets 377, neutrophils 71.7, BUN 23, creatinine 0.91. PHYSICAL EXAMINATION: GENERAL: This is well-developed, fragile, elderly woman who is alert, in no distress. HEENT: Head atraumatic, normocephalic. NECK: Supple. CHEST: Rise symmetrical. Breath sounds clear. HEART: S1, S2. ABDOMEN: Soft, bowel sounds present. EXTREMITIES: With right lower extremity Alden wrapped. ASSESSMENT: 1. Chronic ulceration of right ankle. 2. Peripheral arterial disease, status post right femoral-popliteal bypass graft in situ on 02/04/20 19. 3. Anemia and hypothyroidism. PLAN: The patient is stable and overall doing better. She is off antibiotics. She is being followe d by podiatry and vascular surgery. We will continue observing her. Dictated By: TOMA HADLEY [employer] PORTAL DEVELOPER for BECKIE VALERIO/IRENE Conf#: [id number] DID#: [id number]
[2019-02-12] MEDS: GABAPENTIN 300 MG CAP PO SCH (21:56)
[2019-02-12] MEDS: DIPHENHYDRAMINE 25 MG CAP PO SCH (21:56)
[2019-02-13 03:53] VITALS: BP 156/71; PULSE 72; RESP 20
[2019-02-13] MEDS: PANTOPRAZOLE (EC) 40 MG TAB PO SCH ×2 (05:50→18:28)
[2019-02-13] MEDS: LEVOTHYROXINE 50 MCG TAB PO SCH (05:50)
[2019-02-13 07:24] VITALS: BP 149/66; PULSE 64; RESP 20
[2019-02-13] MEDS: CARBIDOPA/LEVODOPA (25/100) TAB PO SCH ×3 (08:52→21:20)
[2019-02-13] MEDS: FUROSEMIDE 40 MG INJ IV SCH (08:52)
[2019-02-13] MEDS: GABAPENTIN 100 MG CAP PO SCH ×3 (08:52→21:20)
[2019-02-13] MEDS: BENAZEPRIL 40 MG TAB PO SCH (08:52)
[2019-02-13] MEDS: FERROUS SULFATE (EC) 325 MG TAB PO SCH ×3 (08:53→21:20)
[2019-02-13] MEDS: CLOPIDOGREL 75 MG TAB PO SCH (08:53)
[2019-02-13] MEDS: DOCUSATE SODIUM 100 MG CAP PO SCH ×2 (08:53→21:20)
[2019-02-13] MEDS: ASPIRIN (EC) 81 MG TAB PO SCH (08:53)
[2019-02-13] MEDS: MUPIROCIN 2% 22 GM OINT TOP SCH ×2 (09:03→21:20)
[2019-02-13] MEDS: traMADol 50 MG TAB PO PRN (10:56)
[2019-02-13 11:37] VITALS: BP 132/60; PULSE 70; RESP 20
--- NOTE | 2019-02-13 15:01 | CONS ---
Assessment/Plan Assessment/Plan Hospital Course (Demo Recall) SUBJECTIVE: The patient is alert, looks comfortable. PHYSICAL EXAMINATION: GENERAL: This is well-developed, fragile, elderly woman who is alert, in no distress. HEENT: Head atraumatic, normocephalic. NECK: Supple. CHEST: Rise symmetrical. Breath sounds clear. HEART: S1, S2. ABDOMEN: Soft, bowel sounds present. EXTREMITIES: With right lower extremity Alden wrapped. ASSESSMENT: 1. Chronic ulceration of right ankle. 2. Peripheral arterial disease, status post right femoral-popliteal bypass graft in situ on 02/03/2019. 3. Anemia and hypothyroidism. PLAN: The patient is stable. We will continue observing her. Consultation Date/Type/Reason Admit Date/Time Feb 03, 2019 at 06:14 Initial Consult Date Type of Consult id Date/Time of Note DATE: 02/13/19 TIME: 15:00 Exam/Review of Systems Exam Vitals Vital Signs Date Temp Pulse Resp B/P (MAP) Pulse Ox O2 O2 Flow FiO2 Time Delivery Rate 02/13/19 98.3 70 20 132/60 96 11:37 (84) 02/12/19 Room Air 04:01 Intake and Output 02/12/19 02/12/19 02/13/19 1515:00 23:00 07:00 OutputOutput Total 2200 ml BalanceBalance -2200 ml Results Result Diagram: 02/13/19 0436 02/13/19 0435 Results 24hrs Laboratory Tests Test 02/13/19 04:35 02/13/19 04:36 Sodium Level 138 Potassium Level 3.5 Chloride Level 100 Carbon Dioxide Level 32 H Anion Gap 6 Blood Urea Nitrogen 26 H Creatinine 1.12 H Est Glomerular Filtrat Rate mL/min Glucose Level 102 Calcium Level 9.1 White Blood Count 10.8 Red Blood Count 3.59 L Hemoglobin 9.4 L Hematocrit 30.2 L Mean Corpuscular Volume 84.1 Mean Corpuscular Hemoglobin 26.2 L Mean Corpuscular Hemoglobin Concent 31.1 L Red Cell Distribution Width 17.1 H Platelet Count 391 Mean Platelet Volume 8.7 Immature Granulocytes % 1.400 H Neutrophils % 70.4 Lymphocytes % 12.0 L Monocytes % 8.5 Eosinophils % 7.0 Basophils % 0.7 Nucleated Red Blood Cells % 0.0 Immature Granulocytes # 0.150 H Neutrophils # 7.6 H Lymphocytes # 1.3 Monocytes # 0.9 Eosinophils # 0.8 H Basophils # 0.1 Nucleated Red Blood Cells # 0.0 Medications Medication Current Medications Pantoprazole (Protonix Tab) 40 mg BID@06,18 PO Last administered on 02/13/19 05:50; Admin Dose 40 MG; Start 02/03/19 at 18:00 Levothyroxine Sodium (Synthroid) 50 mcg DAILY@06 PO Last administered on 02/13/19 05:50; Admin Dose 50 MCG; Start 02/04/19 at 06:00 Gabapentin (Neurontin) 300 mg HS PO Last administered on 02/12/19 21:56; Admin Dose 300 MG; Start 02/03/19 at 21:00 Carbidopa/Levodopa (Sinemet (25/ )) 1 tab TID PO Last administered on 02/13/19 12:28; Admin Dose 1 TAB; Start 02/03/19 at 21:00 Ferrous Sulfate (Ferrous Sulfate (Ec)) 325 mg TID PO Last administered on 02/13/19 12:28; Admin Dose 325 MG; Start 02/03/19 at 21:00 Mupirocin (Bactroban) 1 applic BID TOP Last administered on 02/13/19 09:03; Admin Dose 1 APPLIC; Start 02/03/19 at 21:00 Aspirin (Halfprin) 81 mg DAILY PO Last administered on 02/13/19 08:53; Admin Dose 81 MG; Start 02/05/19 at 09:00 Benazepril HCl (Lotensin) 40 mg DAILY PO Last administered on 02/13/19 08:52; Admin Dose 40 MG; Start 02/04/19 at 14:30 Clopidogrel Bisulfate (plaVIX) 75 mg DAILY PO Last administered on 02/13/19 08:53; Admin Dose 75 MG; Start 02/04/19 at 14:30 Tramadol HCl (Ultram) 50 mg Q6H PRN PO MODERATE PAIN LEVEL 4-6 Last administered on 02/13/19 10:56; Admin Dose 50 MG; Start 02/07/19 at 16:30 Docusate Sodium (Colace) 100 mg BID PO Last administered on 02/13/19 08:53; Admin Dose 100 MG; Start 02/07/19 at 18:00 Acetaminophen (Tylenol Tab) 650 mg Q6H PRN PO MILD PAIN(1-3)OR ELEVATED TEMP Last administered on 02/10/19 11:12; Admin Dose 650 MG; Start 02/07/19 at 22:00 Sodium Biphosphate/ Sodium Phosphate (Fleet Enema) 133 ml DAILY PRN [place] CONSTIPATION Last administered on 02/12/19 13:07; Admin Dose 133 ML; Start 02/08/19 at 13:30 Diphenhydramine HCl (Benadryl) 25 mg HS PO Last administered on 02/12/19 21:56; Admin Dose 25 MG; Start 02/09/19 at 21:00 Gabapentin (Neurontin) 100 mg TID PO Last administered on 02/13/19 12:28; Admin Dose 100 MG; Start 02/09/19 at 21:00 Furosemide (Lasix) 40 mg DAILY IV Last administered on 02/13/19 08:52; Admin Dose 40 MG; Start 02/11/19 at 09:00 TOMA HADLEY NP Feb 13, 2019 15:01
[2019-02-13 15:50] VITALS: BP 144/65; PULSE 89; RESP 20
[2019-02-13 20:18] VITALS: BP 128/63; PULSE 72; RESP 18
[2019-02-13] MEDS: GABAPENTIN 300 MG CAP PO SCH (21:20)
[2019-02-13] MEDS: DIPHENHYDRAMINE 25 MG CAP PO SCH (21:20)
--- NOTE | 2019-02-13 21:42 | PN ---
Date/Time of Note Date/Time of Note DATE: 02/13/19 TIME: 21:42 Subjective tried more with PT but still weak Objective Vitals Vital Signs Date Temp Pulse Resp B/P (MAP) Pulse Ox O2 O2 Flow FiO2 Time Delivery Rate 02/13/19 98.1 72 18 128/63 97 20:18 (84) 02/12/19 Room Air 04:01 Intake and Output 02/12/19 02/12/19 02/13/19 1515:00 23:00 07:00 OutputOutput Total 2200 ml BalanceBalance -2200 ml with PT, stood, took a few steps, rr syst m+, cta, 1-2+ pit edema, rt leg dressing clean & dry Results Result Diagram: 02/13/19 0436 02/13/19 0435 Medications Medications Current Medications Pantoprazole (Protonix Tab) 40 mg BID@06,18 PO Last administered on 02/13/19 18:28; Admin Dose 40 MG; Start 02/03/19 at 18:00 Levothyroxine Sodium (Synthroid) 50 mcg DAILY@06 PO Last administered on 02/13/19 05:50; Admin Dose 50 MCG; Start 02/04/19 at 06:00 Gabapentin (Neurontin) 300 mg HS PO Last administered on 02/13/19 21:20; Admin Dose 300 MG; Start 02/03/19 at 21:00 Carbidopa/Levodopa (Sinemet (25/ 100)) 1 tab TID PO Last administered on 02/13/19 21:20; Admin Dose 1 TAB; Start 02/03/19 at 21:00 Ferrous Sulfate (Ferrous Sulfate (Ec)) 325 mg TID PO Last administered on 02/13/19 21:20; Admin Dose 325 MG; Start 02/03/19 at 21:00 Mupirocin (Bactroban) 1 applic BID TOP Last administered on 02/13/19 21:20; Admin Dose 1 APPLIC; Start 02/03/19 at 21:00 Aspirin (Halfprin) 81 mg DAILY PO Last administered on 02/13/19 08:53; Admin Dose 81 MG; Start 02/05/19 at 09:00 Benazepril HCl (Lotensin) 40 mg DAILY PO Last administered on 02/13/19 08:52; Admin Dose 40 MG; Start 02/04/19 at 14:30 Clopidogrel Bisulfate (plaVIX) 75 mg DAILY PO Last administered on 02/13/19 08:53; Admin Dose 75 MG; Start 02/04/19 at 14:30 Tramadol HCl (Ultram) 50 mg Q6H PRN PO MODERATE PAIN LEVEL 4-6 Last administered on 02/13/19 10:56; Admin Dose 50 MG; Start 02/07/19 at 16:30 Docusate Sodium (Colace) 100 mg BID PO Last administered on 02/13/19 21:20; Admin Dose 100 MG; Start 02/07/19 at 18:00 Acetaminophen (Tylenol Tab) 650 mg Q6H PRN PO MILD PAIN(1-3)OR ELEVATED TEMP Last administered on 02/10/19 11:12; Admin Dose 650 MG; Start 02/07/19 at 22:00 Sodium Biphosphate/ Sodium Phosphate (Fleet Enema) 133 ml DAILY PRN [place] CONSTIPATION Last administered on 02/12/19 13:07; Admin Dose 133 ML; Start 02/08/19 at 13:30 Diphenhydramine HCl (Benadryl) 25 mg HS PO Last administered on 02/13/19 21:20; Admin Dose 25 MG; Start 02/09/19 at 21:00 Gabapentin (Neurontin) 100 mg TID PO Last administered on 02/13/19 21:20; Admin Dose 100 MG; Start 02/09/19 at 21:00 Furosemide (Lasix) 40 mg DAILY IV Last administered on 02/13/19 08:52; Admin Dose 40 MG; Start 02/11/19 at 09:00 VTE Prophylaxis Risk score (from Nsg)>0 risk: 11 SCD applied (from Nsg): No SCD contraindication: other (s/p rt leg vasc surg) Pharmacological prophylaxis: apixaban, other (asa) Lines/Catheters IV Catheter Type: Saline Lock Central line still needed: No Morgan in Place: Yes Cont'd morgan catheter reason: skin wounds contaminated by urine Assessment/Plan Assessment/Plan 1. s/p rt fem-pop revision #10, slow recovery, still with pain & edema---acute rehab thought she is not a good enough candidate for their aggressive exercise program. 2. pvd--stasis ulcer on rt ankle area/ htn 3. ckd II/ anemia 4. parkinson's/ neuropathy 5. low t4 6. dementia/ anxiety 7. rld ---per vasc surg ---per ID ---per PT ---d/c ivf ---keep morgan cath for now DULCE BENNETT MD Feb 13, 2019 21:42
[2019-02-14 00:09] VITALS: BP 125/66; PULSE 82; RESP 20
[2019-02-14 04:00] VITALS: BP 156/70; PULSE 63; RESP 18
[2019-02-14] MEDS: LEVOTHYROXINE 50 MCG TAB PO SCH (06:05)
[2019-02-14] MEDS: PANTOPRAZOLE (EC) 40 MG TAB PO SCH ×2 (06:05→18:49)
[2019-02-14 07:25] VITALS: BP 137/64; PULSE 60; RESP 20
[2019-02-14] MEDS: CLOPIDOGREL 75 MG TAB PO SCH (09:00)
[2019-02-14] MEDS: GABAPENTIN 100 MG CAP PO SCH ×3 (09:00→21:24)
[2019-02-14] MEDS: ASPIRIN (EC) 81 MG TAB PO SCH (09:00)
[2019-02-14] MEDS: FERROUS SULFATE (EC) 325 MG TAB PO SCH ×3 (09:00→21:24)
[2019-02-14] MEDS: CARBIDOPA/LEVODOPA (25/100) TAB PO SCH ×3 (09:00→21:24)
[2019-02-14] MEDS: BENAZEPRIL 40 MG TAB PO SCH (09:00)
[2019-02-14] MEDS: DOCUSATE SODIUM 100 MG CAP PO SCH ×2 (09:00→21:23)
[2019-02-14] MEDS: MUPIROCIN 2% 22 GM OINT TOP SCH ×2 (09:01→21:24)
[2019-02-14] MEDS: traMADol 50 MG TAB PO PRN (09:01)
[2019-02-14] MEDS: FUROSEMIDE 40 MG INJ IV SCH (09:01)
[2019-02-14 11:25] VITALS: BP 119/55; PULSE 70; RESP 20
--- NOTE | 2019-02-14 12:49 | CONS ---
Assessment/Plan Assessment/Plan Hospital Course (Demo Recall) SUBJECTIVE: The patient is alert, fells good, looks comfortable. PHYSICAL EXAMINATION: GENERAL: This is well-developed, fragile, elderly woman who is alert, in no distress. HEENT: Head atraumatic, normocephalic. NECK: Supple. CHEST: Rise symmetrical. Breath sounds clear. HEART: S1, S2. ABDOMEN: Soft, bowel sounds present. EXTREMITIES: With right lower extremity Alden wrapped. ASSESSMENT: 1. Chronic ulceration of right ankle. 2. Peripheral arterial disease, status post right femoral-popliteal bypass graft in situ on 02/03/2019. 3. Anemia and hypothyroidism. PLAN: The patient is stable. We will continue observing her. Consultation Date/Type/Reason Admit Date/Time Feb 03, 2019 at 06:14 Initial Consult Date Type of Consult id Date/Time of Note DATE: 02/14/19 TIME: 12:49 Exam/Review of Systems Exam Vitals Vital Signs Date Temp Pulse Resp B/P (MAP) Pulse Ox O2 O2 Flow FiO2 Time Delivery Rate 02/14/19 97.5 70 20 119/55 93 11:25 (76) 02/12/19 Room Air 04:01 Intake and Output 02/13/19 02/13/19 02/14/19 1515:00 23:00 07:00 OutputOutput Total 1450 ml 950 ml BalanceBalance -1450 ml -950 ml Results Result Diagram: 02/14/19 0534 02/14/19 0533 Results 24hrs Laboratory Tests Test 02/14/19 05:33 02/14/19 05:34 Sodium Level 141 Potassium Level 4.0 Chloride Level 102 Carbon Dioxide Level 33 H Anion Gap 6 Blood Urea Nitrogen 29 H Creatinine 1.09 H Est Glomerular Filtrat Rate mL/min Glucose Level 99 Calcium Level 9.3 Magnesium Level 2.0 Albumin 3.3 White Blood Count 11.9 H Red Blood Count 4.04 L Hemoglobin 10.5 L Hematocrit 34.4 L Mean Corpuscular Volume 85.1 Mean Corpuscular Hemoglobin 26.0 L Mean Corpuscular Hemoglobin Concent 30.5 L Red Cell Distribution Width 17.4 H Platelet Count 444 H Mean Platelet Volume 8.7 Immature Granulocytes % 1.800 H Neutrophils % 71.1 Lymphocytes % 12.8 L Monocytes % 6.9 Eosinophils % 6.6 Basophils % 0.8 Nucleated Red Blood Cells % 0.0 Immature Granulocytes # 0.210 H Neutrophils # 8.4 H Lymphocytes # 1.5 Monocytes # 0.8 Eosinophils # 0.8 H Basophils # 0.1 Nucleated Red Blood Cells # 0.0 Medications Medication Current Medications Pantoprazole (Protonix Tab) 40 mg BID@06,18 PO Last administered on 02/14/19 06:05; Admin Dose 40 MG; Start 02/03/19 at 18:00 Levothyroxine Sodium (Synthroid) 50 mcg DAILY@06 PO Last administered on 02/14/19 06:05; Admin Dose 50 MCG; Start 02/04/19 at 06:00 Gabapentin (Neurontin) 300 mg HS PO Last administered on 02/13/19 21:20; Admin Dose 300 MG; Start 02/03/19 at 21:00 Carbidopa/Levodopa (Sinemet (25/ 100)) 1 tab TID PO Last administered on 02/14/19 09:00; Admin Dose 1 TAB; Start 02/03/19 at 21:00 Ferrous Sulfate (Ferrous Sulfate (Ec)) 325 mg TID PO Last administered on 02/14/19 09:00; Admin Dose 325 MG; Start 02/03/19 at 21:00 Mupirocin (Bactroban) 1 applic BID TOP Last administered on 02/14/19 09:01; Admin Dose 1 APPLIC; Start 02/03/19 at 21:00 Aspirin (Halfprin) 81 mg DAILY PO Last administered on 02/14/19 09:00; Admin Dose 81 MG; Start 02/05/19 at 09:00 Benazepril HCl (Lotensin) 40 mg DAILY PO Last administered on 02/14/19 09:00; Admin Dose 40 MG; Start 02/04/19 at 14:30 Clopidogrel Bisulfate (plaVIX) 75 mg DAILY PO Last administered on 02/14/19 09:00; Admin Dose 75 MG; Start 02/04/19 at 14:30 Tramadol HCl (Ultram) 50 mg Q6H PRN PO MODERATE PAIN LEVEL 4-6 Last administered on 02/14/19 09:01; Admin Dose 50 MG; Start 02/07/19 at 16:30 Docusate Sodium (Colace) 100 mg BID PO Last administered on 02/14/19 09:00; Admin Dose 100 MG; Start 02/07/19 at 18:00 Acetaminophen (Tylenol Tab) 650 mg Q6H PRN PO MILD PAIN(1-3)OR ELEVATED TEMP Last administered on 02/10/19 11:12; Admin Dose 650 MG; Start 02/07/19 at 22:00 Sodium Biphosphate/ Sodium Phosphate (Fleet Enema) 133 ml DAILY PRN [place] CONSTIPATION Last administered on 02/12/19 13:07; Admin Dose 133 ML; Start 02/08/19 at 13:30 Diphenhydramine HCl (Benadryl) 25 mg HS PO Last administered on 02/13/19 21:20; Admin Dose 25 MG; Start 02/09/19 at 21:00 Gabapentin (Neurontin) 100 mg TID PO Last administered on 02/14/19 09:00; Admin Dose 100 MG; Start 02/09/19 at 21:00 Furosemide (Lasix) 40 mg DAILY IV Last administered on 02/14/19 09:01; Admin Dose 40 MG; Start 02/11/19 at 09:00 TOMA HADLEY NP Feb 14, 2019 12:49
[2019-02-14 15:22] VITALS: BP 112/53; PULSE 67; RESP 20
[2019-02-14] MEDS ORDERED: FUROSEMIDE 40 MG INJ IV ONE (18:30)
--- NOTE | 2019-02-14 18:34 | PN ---
Date/Time of Note Date/Time of Note DATE: 02/14/19 TIME: 18:34 Subjective walked with PT more Objective Vitals Vital Signs Date Temp Pulse Resp B/P (MAP) Pulse Ox O2 O2 Flow FiO2 Time Delivery Rate 02/14/19 97.9 67 20 112/53 96 15:22 (72) 02/12/19 Room Air 04:01 Intake and Output 02/13/19 02/13/19 02/14/19 1515:00 23:00 07:00 OutputOutput Total 1450 ml 950 ml BalanceBalance -1450 ml -950 ml in bed, rr syst m+, cta, 1-2+ pit edema, rt leg dressing clean & dry Results Result Diagram: 02/14/1934 02/14/19532 Medications Medications Current Medications Pantoprazole (Protonix Tab) 40 mg BID@06,18 PO Last administered on 02/14/19 06:05; Admin Dose 40 MG; Start 02/03/19 at 18:00 Levothyroxine Sodium (Synthroid) 50 mcg DAILY@06 PO Last administered on 02/14/19 06:05; Admin Dose 50 MCG; Start 02/04/19 at 06:00 Gabapentin (Neurontin) 300 mg HS PO Last administered on 02/13/19 21:20; Admin Dose 300 MG; Start 02/03/19 at 21:00 Carbidopa/Levodopa (Sinemet (25/ 100)) 1 tab TID PO Last administered on 02/14/19 13:27; Admin Dose 1 TAB; Start 02/03/19 at 21:00 Ferrous Sulfate (Ferrous Sulfate (Ec)) 325 mg TID PO Last administered on 02/14/19 13:27; Admin Dose 325 MG; Start 02/03/19 at 21:00 Mupirocin (Bactroban) 1 applic BID TOP Last administered on 02/14/19 09:01; Admin Dose 1 APPLIC; Start 02/03/19 at 21:00 Aspirin (Halfprin) 81 mg DAILY PO Last administered on 02/14/19 09:00; Admin Dose 81 MG; Start 02/05/19 at 09:00 Benazepril HCl (Lotensin) 40 mg DAILY PO Last administered on 02/14/19 09:00; Admin Dose 40 MG; Start 02/04/19 at 14:30 Clopidogrel Bisulfate (plaVIX) 75 mg DAILY PO Last administered on 02/14/19 09:00; Admin Dose 75 MG; Start 02/04/19 at 14:30 Tramadol HCl (Ultram) 50 mg Q6H PRN PO MODERATE PAIN LEVEL 4-6 Last administe red on 02/14/19 09:01; Admin Dose 50 MG; Start 02/07/19 at 16:30 Docusate Sodium (Colace) 100 mg BID PO Last administered on 02/14/19 09:00; Admin Dose 100 MG; Start 02/07/19 at 18:00 Acetaminophen (Tylenol Tab) 650 mg Q6H PRN PO MILD PAIN(1-3)OR ELEVATED TEMP Last administered on 02/10/19 11:12; Admin Dose 650 MG; Start 02/07/19 at 22:00 Sodium Biphosphate/ Sodium Phosphate (Fleet Enema) 133 ml DAILY PRN [place] CONSTIPATION Last administered on 02/12/19 13:07; Admin Dose 133 ML; Start 02/08/19 at 13:30 Diphenhydramine HCl (Benadryl) 25 mg HS PO Last administered on 02/13/19 21:20; Admin Dose 25 MG; Start 02/09/19 at 21:00 Gabapentin (Neurontin) 100 mg TID PO Last administered on 02/14/19 13:27; Admin Dose 100 MG; Start 02/09/19 at 21:00 Furosemide (Lasix) 40 mg DAILY IV Last administered on 02/14/19 09:01; Admin Dose 40 MG; Start 02/11/19 at 09:00 VTE Prophylaxis Risk score (from Ns)>0 risk: 11 SCD applied (from Nsg): No SCD contraindication: low risk/ambulating Pharmacological prophylaxis: apixaban, other (asa) Lines/Catheters IV Catheter Type: Saline Lock Central line still needed: No Morgan in Place: Yes Cont'd morgan catheter reason: skin wounds contaminated by urine Assessment/Plan Assessment/Plan 1. pvd/ s/p rt fem-pop revision #11 2. rld 3. ckd II/ anemia 4. rt ankle stasis ulcer 5. anxiety/ dementia 6. parkinson's 7. htn ---extra lasix 40mg iv push today ---must cont full PT exercises ---per vasc surg ---prep for transfer to SNF by thur or fri; daughter aware & will visit places ---d/c [facility] tomorrow am DULCE BENNETT MD Feb 14, 2019 18:34
[2019-02-14 20:19] VITALS: BP 136/63; PULSE 71; RESP 16
[2019-02-14] MEDS: GABAPENTIN 300 MG CAP PO SCH (21:24)
[2019-02-14] MEDS: DIPHENHYDRAMINE 25 MG CAP PO SCH (21:24)
[2019-02-15] VITALS (7 sets, daily range): BP systolic 108–153; BP diastolic 53–78; PULSE 60–88; RESP 16–20
[2019-02-15] MEDS: PANTOPRAZOLE (EC) 40 MG TAB PO SCH ×2 (05:38→17:55)
[2019-02-15] MEDS: LEVOTHYROXINE 50 MCG TAB PO SCH (05:38)
[2019-02-15] MEDS: FERROUS SULFATE (EC) 325 MG TAB PO SCH ×3 (08:32→20:34)
[2019-02-15] MEDS: ASPIRIN (EC) 81 MG TAB PO SCH (08:32)
[2019-02-15] MEDS: CLOPIDOGREL 75 MG TAB PO SCH (08:32)
[2019-02-15] MEDS: GABAPENTIN 100 MG CAP PO SCH ×3 (08:32→20:35)
[2019-02-15] MEDS: FUROSEMIDE 40 MG INJ IV SCH (08:33)
[2019-02-15] MEDS: BENAZEPRIL 40 MG TAB PO SCH (08:33)
[2019-02-15] MEDS: DOCUSATE SODIUM 100 MG CAP PO SCH ×2 (08:33→20:34)
[2019-02-15] MEDS: CARBIDOPA/LEVODOPA (25/100) TAB PO SCH ×3 (08:33→20:35)
[2019-02-15] MEDS: traMADol 50 MG TAB PO PRN (08:34)
[2019-02-15] MEDS: MUPIROCIN 2% 22 GM OINT TOP SCH ×2 (09:00→20:35)
--- NOTE | 2019-02-15 14:02 | CONS ---
Assessment/Plan Assessment/Plan Hospital Course (Demo Recall) SUBJECTIVE: Looks comfortable. PHYSICAL EXAMINATION: GENERAL: This is well-developed, fragile, elderly woman who is alert, in no distress. HEENT: Head atraumatic, normocephalic. NECK: Supple. CHEST: Rise symmetrical. Breath sounds clear. HEART: S1, S2. ABDOMEN: Soft, bowel sounds present. EXTREMITIES: With right lower extremity Alden wrapped. ASSESSMENT: 1. Chronic ulceration of right ankle. 2. Peripheral arterial disease, status post right femoral-popliteal bypass graft in situ on 02/03/2019. 3. Anemia and hypothyroidism. PLAN: The patient is stable off abx Consultation Date/Type/Reason Admit Date/Time Feb 03, 2019 at 06:14 Initial Consult Date Type of Consult id Date/Time of Note DATE: 02/15/19 TIME: 14:02 Exam/Review of Systems Exam Vitals Vital Signs Date Temp Pulse Resp B/P (MAP) Pulse Ox O2 O2 Flow FiO2 Time Delivery Rate 02/15/19 98.3 66 16 108/53 96 11:43 (71) 02/12/19 Room Air 04:01 Intake and Output 02/14/19 02/14/19 02/15/19 1515:00 23:00 07:00 IntakeIntake Total 950 ml OutputOutput Total 1350 ml 850 ml BalanceBalance -400 ml -850 ml Results Result Diagram: 02/14/19 0534 02/15/19 0534 Results 24hrs Laboratory Tests Test 02/15/19 05:34 Sodium Level 139 Potassium Level 4.1 Chloride Level 101 Carbon Dioxide Level 31 Anion Gap 7 Blood Urea Nitrogen 28 H Creatinine 1.08 H Est Glomerular Filtrat Rate mL/min Glucose Level 98 Calcium Level 8.8 Medications Medication Current Medications Pantoprazole (Protonix Tab) 40 mg BID@06,18 PO Last administered on 02/15/19at 05:38; Admin Dose 40 MG; Start 02/03/19 at 18:00 Levothyroxine Sodium (Synthroid) 50 mcg DAILY@06 PO Last administered on 02/15/19at 05:38; Admin Dose 50 MCG; Start 02/04/19 at 06:00 Gabapentin (Neurontin) 300 mg HS PO Last administered on 02/14/19at 21:24; Admin Dose 300 MG; Start 02/03/19 at 21:00 Carbidopa/Levodopa (Sinemet (25/ 100)) 1 tab TID PO Last administered on 02/15/19 08:33; Admin Dose 1 TAB; Start 02/03/19 at 21:00 Ferrous Sulfate (Ferrous Sulfate (Ec)) 325 mg TID PO Last administered on 02/15/19 08:32; Admin Dose 325 MG; Start 02/03/19 at 21:00 Mupirocin (Bactroban) 1 applic BID TOP Last administered on 02/14/19 21:24; Admin Dose 1 APPLIC; Start 02/03/19 at 21:00 Aspirin (Halfprin) 81 mg DAILY PO Last administered on 02/15/19 08:32; Admin Dose 81 MG; Start 02/05/19 at 09:00 Benazepril HCl (Lotensin) 40 mg DAILY PO Last administered on 02/15/19 08:33; Admin Dose 40 MG; Start 02/04/19 at 14:30 Clopidogrel Bisulfate (plaVIX) 75 mg DAILY PO Last administered on 02/15/19 08:32; Admin Dose 75 MG; Start 02/04/19 at 14:30 Tramadol HCl (Ultram) 50 mg Q6H PRN PO MODERATE PAIN LEVEL 4-6 Last administered on 02/15/19 08:34; Admin Dose 50 MG; Start 02/07/19 at 16:30 Docusate Sodium (Colace) 100 mg BID PO Last administered on 02/15/19 08:33; Admin Dose 100 MG; Start 02/07/19 at 18:00 Acetaminophen (Tylenol Tab) 650 mg Q6H PRN PO MILD PAIN(1-3)OR ELEVATED TEMP Last administered on 02/10/19 11:12; Admin Dose 650 MG; Start 02/07/19 at 22:00 Sodium Biphosphate/ Sodium Phosphate (Fleet Enema) 133 ml DAILY PRN [place] CONSTIPATION Last administered on 02/12/19 13:07; Admin Dose 133 ML; Start 02/08/19 at 13:30 Diphenhydramine HCl (Benadryl) 25 mg HS PO Last administered on 02/14/19 21:24; Admin Dose 25 MG; Start 02/09/19 at 21:00 Gabapentin (Neurontin) 100 mg TID PO Last administered on 02/15/19 08:32; Admin Dose 100 MG; Start 02/09/19 at 21:00 Furosemide (Lasix) 40 mg DAILY IV Last administered on 02/15/19at 08:33; Admin Dose 40 MG; Start 02/11/19 at 09:00 TOMA HADLEY NP Feb 15, 2019 14:02
[2019-02-15] MEDS: DIPHENHYDRAMINE 25 MG CAP PO SCH (20:34)
[2019-02-15] MEDS: GABAPENTIN 300 MG CAP PO SCH (20:35)
[2019-02-16 03:18] VITALS: BP 137/63; PULSE 63; RESP 20
[2019-02-16] MEDS: PANTOPRAZOLE (EC) 40 MG TAB PO SCH ×2 (05:41→17:35)
[2019-02-16] MEDS: LEVOTHYROXINE 50 MCG TAB PO SCH (05:41)
[2019-02-16 07:15] VITALS: BP 160/73; PULSE 64; RESP 16
[2019-02-16] MEDS: FUROSEMIDE 40 MG INJ IV SCH (09:24)
[2019-02-16] MEDS: GABAPENTIN 100 MG CAP PO SCH ×3 (09:25→21:53)
[2019-02-16] MEDS: BENAZEPRIL 40 MG TAB PO SCH (09:25)
[2019-02-16] MEDS: FERROUS SULFATE (EC) 325 MG TAB PO SCH ×3 (09:25→21:53)
[2019-02-16] MEDS: CLOPIDOGREL 75 MG TAB PO SCH (09:25)
[2019-02-16] MEDS: CARBIDOPA/LEVODOPA (25/100) TAB PO SCH ×3 (09:25→21:55)
[2019-02-16] MEDS: ASPIRIN (EC) 81 MG TAB PO SCH (09:25)
[2019-02-16] MEDS: DOCUSATE SODIUM 100 MG CAP PO SCH ×2 (09:25→21:53)
[2019-02-16] MEDS: traMADol 50 MG TAB PO PRN (09:32)
[2019-02-16] MEDS: MUPIROCIN 2% 22 GM OINT TOP SCH ×2 (09:33→21:55)
[2019-02-16 12:00] VITALS: BP 137/62; PULSE 61; RESP 16
--- NOTE | 2019-02-16 12:32 | PN ---
Date/Time of Note Date/Time of Note DATE: 02/16/19 TIME: 12:29 Assessment/Plan Lines/Catheters IV Catheter Type (from Nrsg): Saline Lock Zepeda in Place (from Nrsg): No Assessment/Plan Assessment/Plan Doing well - R fem-pop patent, calf ulcer is almost closed with compression and wound care Remove all timothy and apply steristrips Continue ISSA wrap to the knee level OK for ARU transfer from my standpoint Subjective 24 Hr Interval Summary Feels better, no pain. Working with PT and getting up out of bed with them. She has now been accepted to ARU. Exam/Review of Systems Vital Signs Vitals Vital Signs Date Temp Pulse Resp B/P (MAP) Pulse Ox O2 O2 Flow FiO2 Time Delivery Rate 02/16/19 98.5 61 16 137/62 95 12:00 (87) Intake and Output 02/15/19 02/15/19 02/16/19 1515:00 23:00 07:00 IntakeIntake Total 650 ml 600 ml BalanceBalance 650 ml 600 ml Exam Free Text/Dictation R leg incisions are all clean and dry, the distal calf and ankle ulcer are almost closed, no longer painful. 2+ pop / DP pulse, foot is warm and pink. Results Result Diagram: 02/14/19 0534 02/15/19 0534 ALLY DAY MD Feb 16, 2019 12:32
[2019-02-16 20:25] VITALS: BP 141/63; PULSE 64; RESP 18
[2019-02-16] MEDS: DIPHENHYDRAMINE 25 MG CAP PO SCH (21:53)
[2019-02-16] MEDS: GABAPENTIN 300 MG CAP PO SCH (21:53)
[2019-02-16 23:31] VITALS: BP 126/59; PULSE 65; RESP 17
[2019-02-17 03:29] VITALS: BP 131/63; PULSE 61; RESP 19
[2019-02-17] MEDS: LEVOTHYROXINE 50 MCG TAB PO SCH (06:15)
[2019-02-17] MEDS: PANTOPRAZOLE (EC) 40 MG TAB PO SCH ×2 (06:15→17:30)
[2019-02-17 07:25] VITALS: BP 142/63; PULSE 58; RESP 19
[2019-02-17] MEDS: FUROSEMIDE 40 MG INJ IV SCH (10:16)
[2019-02-17] MEDS: ASPIRIN (EC) 81 MG TAB PO SCH (10:17)
[2019-02-17] MEDS: CARBIDOPA/LEVODOPA (25/100) TAB PO SCH ×3 (10:17→20:29)
[2019-02-17] MEDS: BENAZEPRIL 40 MG TAB PO SCH (10:17)
[2019-02-17] MEDS: FERROUS SULFATE (EC) 325 MG TAB PO SCH ×3 (10:17→20:28)
[2019-02-17] MEDS: DOCUSATE SODIUM 100 MG CAP PO SCH ×2 (10:17→20:28)
[2019-02-17] MEDS: CLOPIDOGREL 75 MG TAB PO SCH (10:17)
[2019-02-17] MEDS: GABAPENTIN 100 MG CAP PO SCH ×3 (10:17→20:28)
[2019-02-17] MEDS: MUPIROCIN 2% 22 GM OINT TOP SCH ×2 (10:19→20:29)
[2019-02-17 11:15] VITALS: BP 117/49; PULSE 60; RESP 18
[2019-02-17 15:10] VITALS: BP 122/57; PULSE 63; RESP 18
[2019-02-17 20:14] VITALS: BP 118/53; PULSE 64; RESP 16
[2019-02-17] MEDS: GABAPENTIN 300 MG CAP PO SCH (20:28)
[2019-02-17] MEDS: DIPHENHYDRAMINE 25 MG CAP PO SCH (20:28)
--- NOTE | 2019-02-17 21:53 | CONS ---
DATE OF ADMISSION: 02/03/2019 DATE OF CONSULTATION: SUBJECTIVE FINDINGS: The patient is being followed for right ankle venous ulceration. She is status post right femoral-popliteal bypass graft. Extremities are warm. Ulcerations continue to heal. Th e patient relates less pain to the right lower extremity following bypass. OBJECTIVE FINDINGS: VITAL SIGNS: Temperature 98.5, pulse 63, respiratory 18, blood pressure 122/57, pulse oximetry is 95 % on room air. GENERAL: The patient is alert and oriented. EXTREMITIES: Has a compression wrapped in right lower extremity. Dressings removed. Chronic venous stasis, hyperpigmentation. Skin is dry. No signs of cellulitis. There is a small wound at the ant erior lower leg, measuring approximately 0.5 x 0.2 cm, with thick granular wound base. The patient r elates intermittent throbbing pain to the left ankle and there are multiple varicosities present. No signs of pressure sore. Foot is warm. Mycotic nails. 2+ popliteal and DP pulse in the right. ASSESSMENT: 1. Venous stasis with varicosities in left lower extremity. 2. Edema, right lower extremity. 3. Status post right femoral-popliteal bypass. 4. Venous stasis ulceration, nearly healed. PLAN: The patient's wounds are healing. Surgery not anticipated. Continue local wound care. Skin care recommendations given to nurses. Can consider obtaining venous ultrasound with reflux on the le ft lower extremity. The patient is a candidate for acute rehab placement. Dictated By: GALDINO ORR/IRENE Conf#: [id number] DID#: [id number]
[2019-02-18] VITALS (8 sets, daily range): BP systolic 109–179; BP diastolic 54–88; PULSE 59–69; RESP 16–20
[2019-02-18] MEDS: LEVOTHYROXINE 50 MCG TAB PO SCH (05:24)
[2019-02-18] MEDS: PANTOPRAZOLE (EC) 40 MG TAB PO SCH ×2 (05:24→17:53)
[2019-02-18] MEDS: CARBIDOPA/LEVODOPA (25/100) TAB PO SCH ×3 (08:49→20:17)
[2019-02-18] MEDS: FUROSEMIDE 40 MG INJ IV SCH (08:50)
[2019-02-18] MEDS: CLOPIDOGREL 75 MG TAB PO SCH (08:50)
[2019-02-18] MEDS: ASPIRIN (EC) 81 MG TAB PO SCH (08:50)
[2019-02-18] MEDS: FERROUS SULFATE (EC) 325 MG TAB PO SCH ×3 (08:50→20:17)
[2019-02-18] MEDS: BENAZEPRIL 40 MG TAB PO SCH (08:50)
[2019-02-18] MEDS: GABAPENTIN 100 MG CAP PO SCH ×3 (08:50→20:18)
[2019-02-18] MEDS: DOCUSATE SODIUM 100 MG CAP PO SCH ×2 (08:50→20:17)
[2019-02-18] MEDS: MUPIROCIN 2% 22 GM OINT TOP SCH ×2 (08:51→20:18)
[2019-02-18] MEDS: DIPHENHYDRAMINE 25 MG CAP PO SCH (20:17)
[2019-02-18] MEDS: GABAPENTIN 300 MG CAP PO SCH (20:18)
[2019-02-19 04:20] VITALS: BP 140/66; PULSE 64; RESP 20
[2019-02-19] MEDS: LEVOTHYROXINE 50 MCG TAB PO SCH (05:49)
[2019-02-19] MEDS: PANTOPRAZOLE (EC) 40 MG TAB PO SCH ×2 (05:49→17:21)
[2019-02-19 07:24] VITALS: BP 145/65; PULSE 60; RESP 18
[2019-02-19] MEDS: ASPIRIN (EC) 81 MG TAB PO SCH (08:24)
[2019-02-19] MEDS: FERROUS SULFATE (EC) 325 MG TAB PO SCH ×3 (08:24→20:29)
[2019-02-19] MEDS: CLOPIDOGREL 75 MG TAB PO SCH (08:24)
[2019-02-19] MEDS: DOCUSATE SODIUM 100 MG CAP PO SCH ×2 (08:24→20:29)
[2019-02-19] MEDS: GABAPENTIN 100 MG CAP PO SCH ×3 (08:24→20:29)
[2019-02-19] MEDS: CARBIDOPA/LEVODOPA (25/100) TAB PO SCH ×3 (08:24→20:29)
[2019-02-19] MEDS: BENAZEPRIL 40 MG TAB PO SCH (08:25)
[2019-02-19] MEDS: FUROSEMIDE 40 MG INJ IV SCH (08:25)
[2019-02-19] MEDS: MUPIROCIN 2% 22 GM OINT TOP SCH ×2 (08:25→20:30)
[2019-02-19 11:59] VITALS: BP 121/57; PULSE 63; RESP 17
[2019-02-19 20:00] VITALS: BP 141/65; PULSE 69; RESP 20
[2019-02-19] MEDS: DIPHENHYDRAMINE 25 MG CAP PO SCH (20:29)
[2019-02-19] MEDS: GABAPENTIN 300 MG CAP PO SCH (20:29)
[2019-02-20] VITALS (7 sets, daily range): BP systolic 115–170; BP diastolic 55–71; PULSE 55–69; RESP 16–20
[2019-02-20] MEDS: PANTOPRAZOLE (EC) 40 MG TAB PO SCH ×2 (05:45→17:38)
[2019-02-20] MEDS: LEVOTHYROXINE 50 MCG TAB PO SCH (05:45)
[2019-02-20] MEDS: CLOPIDOGREL 75 MG TAB PO SCH (08:40)
[2019-02-20] MEDS: CARBIDOPA/LEVODOPA (25/100) TAB PO SCH ×3 (08:41→20:20)
[2019-02-20] MEDS: DOCUSATE SODIUM 100 MG CAP PO SCH ×2 (08:41→20:20)
[2019-02-20] MEDS: GABAPENTIN 100 MG CAP PO SCH ×3 (08:41→20:20)
[2019-02-20] MEDS: ASPIRIN (EC) 81 MG TAB PO SCH (08:41)
[2019-02-20] MEDS: FERROUS SULFATE (EC) 325 MG TAB PO SCH ×3 (08:41→20:20)
[2019-02-20] MEDS: MUPIROCIN 2% 22 GM OINT TOP SCH ×2 (08:42→20:20)
[2019-02-20] MEDS: BENAZEPRIL 40 MG TAB PO SCH (08:42)
[2019-02-20] MEDS: FUROSEMIDE 40 MG INJ IV SCH (08:42)
[2019-02-20] MEDS: GABAPENTIN 300 MG CAP PO SCH (20:20)
[2019-02-20] MEDS: DIPHENHYDRAMINE 25 MG CAP PO SCH (20:20)
[2019-02-21 01:08] VITALS: BP 103/55; PULSE 63; RESP 16
[2019-02-21] MEDS: PANTOPRAZOLE (EC) 40 MG TAB PO SCH ×2 (05:51→17:18)
[2019-02-21] MEDS: LEVOTHYROXINE 50 MCG TAB PO SCH (05:51)
[2019-02-21 07:46] VITALS: BP 116/56; PULSE 59; RESP 18
[2019-02-21] MEDS: FERROUS SULFATE (EC) 325 MG TAB PO SCH ×3 (08:48→21:04)
[2019-02-21] MEDS: GABAPENTIN 100 MG CAP PO SCH ×3 (08:48→21:04)
[2019-02-21] MEDS: FUROSEMIDE 40 MG INJ IV SCH (08:48)
[2019-02-21] MEDS: ASPIRIN (EC) 81 MG TAB PO SCH (08:48)
[2019-02-21] MEDS: CARBIDOPA/LEVODOPA (25/100) TAB PO SCH ×3 (08:48→21:04)
[2019-02-21] MEDS: DOCUSATE SODIUM 100 MG CAP PO SCH ×2 (08:49→21:04)
[2019-02-21] MEDS: CLOPIDOGREL 75 MG TAB PO SCH (08:49)
[2019-02-21] MEDS: BENAZEPRIL 40 MG TAB PO SCH (08:49)
[2019-02-21] MEDS: MUPIROCIN 2% 22 GM OINT TOP SCH ×2 (09:00→21:00)
--- NOTE | 2019-02-21 09:53 | PN ---
Date/Time of Note Date/Time of Note DATE: 02/17/19 TIME: 10:53 Objective Vitals Vital Signs Date Temp Pulse Resp B/P (MAP) Pulse Ox O2 O2 Flow FiO2 Time Delivery Rate 02/17/19 98.4 85 131/65 97 RA 07:46 participated more with PT exercise today, rr syst m+, cta, +1-2 pit edema bilat, rt warm, smaller open ulcer in rt ankle area, Results Result Diagram: 02/20/1953402/20/19534 Medications Medications Current Medications Pantoprazole (Protonix Tab) 40 mg BID@06,18 PO Last administered on 02/21/19 05:51; Admin Dose 40 MG; Start 02/03/19 at 18:00 Levothyroxine Sodium (Synthroid) 50 mcg DAILY@06 PO Last administered on 02/21/19 05:51; Admin Dose 50 MCG; Start 02/04/19 at 06:00 Gabapentin (Neurontin) 300 mg HS PO Last administered on 02/20/19 20:20; Admin Dose 300 MG; Start 02/03/19 at 21:00 Carbidopa/Levodopa (Sinemet (25/ 100)) 1 tab TID PO Last administered on 08:48; Admin Dose 1 TAB; Start 02/03/19 at 21:00 Ferrous Sulfate (Ferrous Sulfate (Ec)) 325 mg TID PO Last administered on 02/21/19 08:48; Admin Dose 325 MG; Start 02/03/19 at 21:00 Mupirocin (Bactroban) 1 applic BID TOP Last administered on 02/20/19 20:20; Admin Dose 1 APPLIC; Start 02/03/19 at 21:00 Aspirin (Halfprin) 81 mg DAILY PO Last administered on 02/21/19 08:48; Admin Dose 81 MG; Start 02/05/19 at 09:00 Benazepril HCl (Lotensin) 40 mg DAILY PO Last administered on 02/21/19 08:49; Admin Dose 40 MG; Start 02/04/19 at 14:30 Clopidogrel Bisulfate (plaVIX) 75 mg DAILY PO Last administered on 02/21/19 08:49; Admin Dose 75 MG; Start 02/04/19 at 14:30 Tramadol HCl (Ultram) 50 mg Q6H PRN PO MODERATE PAIN LEVEL 4-6 Last administered on 02/16/19 09:32; Admin Dose 50 MG; Start 02/07/19 at 16:30 Docusate Sodium (Colace) 100 mg BID PO Last administered on 02/21/19 08:49; Admin Dose 100 MG; Start 02/07/19 at 18:00 Acetaminophen (Tylenol Tab) 650 mg Q6H PRN PO MILD PAIN(1-3)OR ELEVATED TEMP Last administered on 02/10/19 11:12; Admin Dose 650 MG; Start 02/07/19 at 22:00 Sodium Biphosphate/ Sodium Phosphate (Fleet Enema) 133 ml DAILY PRN [place] CONSTIPATION Last administered on 02/12/19 13:07; Admin Dose 133 ML; Start 02/08/19 at 13:30 Diphenhydramine HCl (Benadryl) 25 mg HS PO Last administered on 02/20/19 20:20; Admin Dose 25 MG; Start 02/09/19 at 21:00 Gabapentin (Neurontin) 100 mg TID PO Last administered on 02/21/19 08:48; Admin Dose 100 MG; Start 02/09/19 at 21:00 Furosemide (Lasix) 40 mg DAILY IV Last administered on 02/21/19 08:48; Admin Dose 40 MG; Start 02/11/19 at 09:00 VTE Prophylaxis Risk score (from [facility])>0 risk: 9 SCD applied (from [facility]): No SCD contraindication: low risk/ambulating Pharmacological prophylaxis: apixaban, other (asa) Lines/Catheters IV Catheter Type: Saline Lock Central line still needed: No Zepeda in Place: No Assessment/Plan Assessment/Plan 1. pvd/ s/p rt fem-pop #14 2. age related weakness/ Parkinson's debility 3. anxiety/ depression 4. ckd II/ anemia 5. htn 6. low t4 7. rld ---per vasc surg ---no more iv med ---must cont full PT exercise ---insurance has denied ARU prog admit, will ask for snf rehab exercise program transfer ---px is guarded DULCE BENNETT MD Feb 21, 2019 09:53
--- NOTE | 2019-02-21 09:53 | PN ---
Date/Time of Note Date/Time of Note DATE: 02/16/19 TIME: 09:52 Subjective I cannot do anything alone Objective Vitals Vital Signs Date Temp Pulse Resp B/P (MAP) Pulse Ox O2 O2 Flow FiO2 Time Delivery Rate 02/21/19 98.4 87 18 137/63 95 RA 07:46 a&o x3, rr syst m+, cta, cutter machine tender rt leg, +1 pit edema, warm, smaller ulcer in ankle area Results Result Diagram: 02/20/1953402/20/19534 Medications Medications Current Medications Pantoprazole (Protonix Tab) 40 mg BID@06,18 PO Last administered on 02/21/19 05:51; Admin Dose 40 MG; Start 02/03/19 at 18:00 Levothyroxine Sodium (Synthroid) 50 mcg DAILY@06 PO Last administered on 02/21/19 05:51; Admin Dose 50 MCG; Start 02/04/19 at 06:00 Gabapentin (Neurontin) 300 mg HS PO Last administered on 02/20/19 20:20; Admin Dose 300 MG; Start 02/03/19 at 21:00 Carbidopa/Levodopa (Sinemet (25/ 100)) 1 tab TID PO Last administered on 02/21/19 08:48; Admin Dose 1 TAB; Start 02/03/19 at 21:00 Ferrous Sulfate (Ferrous Sulfate (Ec)) 325 mg TID PO Last administered on 02/21/19 08:48; Admin Dose 325 MG; Start 02/03/19 at 21:00 Mupirocin (Bactroban) 1 applic BID TOP Last administered on 02/20/19 20:20; Admin Dose 1 APPLIC; Start 02/03/19 at 21:00 Aspirin (Halfprin) 81 mg DAILY PO Last administered on 02/21/19 08:48; Admin Dose 81 MG; Start 02/05/19 at 09:00 Benazepril HCl (Lotensin) 40 mg DAILY PO Last administered on 02/21/19 08:49; Admin Dose 40 MG; Start 02/04/19 at 14:30 Clopidogrel Bisulfate (plaVIX) 75 mg DAILY PO Last administered on 02/21/19 08:49; Admin Dose 75 MG; Start 02/04/19 at 14:30 Tramadol HCl (Ultram) 50 mg Q6H PRN PO MODERATE PAIN LEVEL 4-6 Last administered on 02/16/19 09:32; Admin Dose 50 MG; Start 02/07/19 at 16:30 Docusate Sodium (Colace) 100 mg BID PO Last administered on 02/21/19 08:49; Admin Dose 100 MG; Start 02/07/19 at 18:00 Acetaminophen (Tylenol Tab) 650 mg Q6H PRN PO MILD PAIN(1-3)OR ELEVATED TEMP Last administered on 02/10/19 11:12; Admin Dose 650 MG; Start 02/07/19 at 22:00 Sodium Biphosphate/ Sodium Phosphate (Fleet Enema) 133 ml DAILY PRN [place] CONS TIPATION Last administered on 02/12/19 13:07; Admin Dose 133 ML; Start 02/08/19 at 13:30 Diphenhydramine HCl (Benadryl) 25 mg HS PO Last administered on 02/20/19 20:20; Admin Dose 25 MG; Start 02/09/19 at 21:00 Gabapentin (Neurontin) 100 mg TID PO Last administered on 02/21/19 08:48; Admin Dose 100 MG; Start 02/09/19 at 21:00 Furosemide (Lasix) 40 mg DAILY IV Last administered on 02/21/19 08:48; Admin Dose 40 MG; Start 02/11/19 at 09:00 VTE Prophylaxis Risk score (from Ns)>0 risk: 9 SCD applied (from [facility]): No SCD contraindication: low risk/ambulating Pharmacological prophylaxis: apixaban, other (asa) Lines/Catheters IV Catheter Type: Saline Lock Central line still needed: No Zepeda in Place: No Assessment/Plan Assessment/Plan 1. pvd/ s/p rt fem-pop #13---slow recovery, still c/o much pain when using rt leg 2. anxiety/ depression--low po vin intake 3. htn--fluctuant bp 4. low t4 5. anemia/ ckd II 6. Parkinson's neuropathy pain also worsened ---per vasc surg ---awaiting insurance ok on aru admit for rehab ---spoke with family ---must participate in full PT exercise DULCE BENNETT MD Feb 21, 2019 09:53
--- NOTE | 2019-02-21 09:54 | PN ---
Date/Time of Note Date/Time of Note DATE: 02/18/19 TIME: 14:54 Subjective weak, still with leg pain Objective Vitals Vital Signs Date Temp Pulse Resp B/P (MAP) Pulse Ox O2 O2 Flow FiO2 Time Delivery Rate 02/18/19 98.4 83 130/60 95 RA 07:46 50-75% PT participation+, rr syst m+, cta, rt ankle area ulcer clean, dry, 1cm oval, +1-2 pit edema bilat+ Results Result Diagram: 02/20/1953402/20/19534 Medications Medications Current Medications Pantoprazole (Protonix Tab) 40 mg BID@06,18 PO Last administered on 02/21/19 05:51; Admin Dose 40 MG; Start 02/03/19 at 18:00 Levothyroxine Sodium (Synthroid) 50 mcg DAILY@06 PO Last administered on 02/21/19 05:51; Admin Dose 50 MCG; Start 02/04/19 at 06:00 Gabapentin (Neurontin) 300 mg HS PO Last administered on 02/20/19 20:20; Admin Dose 300 MG; Start 02/03/19 at 21:00 Carbidopa/Levodopa (Sinemet (25/ 100)) 1 tab TID PO Last administered on 02/21/19 08:48; Admin Dose 1 TAB; Start 02/03/19 at 21:00 Ferrous Sulfate (Ferrous Sulfate (Ec)) 325 mg TID PO Last administered on 02/21/19 08:48; Admin Dose 325 MG; Start 02/03/19 at 21:00 Mupirocin (Bactroban) 1 applic BID TOP Last administered on 02/20/19 20:20; Admin Dose 1 APPLIC; Start 02/03/19 at 21:00 Aspirin (Halfprin) 81 mg DAILY PO Last administered on 02/21/19 08:48; Admin Dose 81 MG; Start 02/05/19 at 09:00 Benazepril HCl (Lotensin) 40 mg DAILY PO Last administered on 02/21/19 08:49; Admin Dose 40 MG; Start 02/04/19 at 14:30 Clopidogrel Bisulfate (plaVIX) 75 mg DAILY PO Last administered on 02/21/19 08:49; Admin Dose 75 MG; Start 02/04/19 at 14:30 Tramadol HCl (Ultram) 50 mg Q6H PRN PO MODERATE PAIN LEVEL 4-6 Last administered on 02/16/19 09:32; Admin Dose 50 MG; Start 02/07/19 at 16:30 Docusate Sodium (Colace) 100 mg BID PO Last administered on 02/21/19 08:49; Admin Dose 100 MG; Start 02/07/19 at 18:00 Acetaminophen (Tylenol Tab) 650 mg Q6H PRN PO MILD PAIN(1-3)OR ELEVATED TEMP Last administered on 02/10/19 11:12; Admin Dose 650 MG; Start 02/07/19 at 22:00 Sodium Biphosphate/ Sodium Phosphate (Fleet Enema) 133 ml DAILY PRN [place] CONSTIPATION Last administered on 02/12/19 13:07; Admin Dose 133 ML; Start 02/08/19 at 13:30 Diphenhydramine HCl (Benadryl) 25 mg HS PO Last administered on 02/20/19 20:20; Admin Dose 25 MG; Start 02/09/19 at 21:00 Gabapentin (Neurontin) 100 mg TID PO Last administered on 02/21/19 08:48; Admin Dose 100 MG; Start 02/09/19 at 21:00 Furosemide (Lasix) 40 mg DAILY IV Last administered on 02/21/19 08:48; Admin Dose 40 MG; Start 02/11/19 at 09:00 VTE Prophylaxis Risk score (from [facility])>0 risk: 9 SCD applied (from Ns): No SCD contraindication: low risk/ambulating Pharmacological prophylaxis: apixaban, other (asa) Lines/Catheters IV Catheter Type: Saline Lock Central line still needed: No Zepeda in Place: No Assessment/Plan Assessment/Plan 1. pvd/ s/p rt fem-pop #15--slow recovery 2. ckd II/ anemia 3. RLD 4. low endurance/ age related weak/ Parkinson's mobility ds 5. anxiety/ depression 6. low t4 7. htn ---awaiting insurance [place] rehab program---she cannot go home with elderly for her rom & adl NOT adequate for usual life necessity ---add metoprolol ---must inc PT participation ---communicated with family re: rehab prog & location possibility accordingly DULCE BENNETT MD Feb 21, 2019 09:54
--- NOTE | 2019-02-21 09:55 | PN ---
Date/Time of Note Date/Time of Note DATE: 02/19/19 TIME: 11:54 Subjective no appetite Objective Vitals Vital Signs Date Temp Pulse Resp B/P (MAP) Pulse Ox O2 O2 Flow FiO2 Time Delivery Rate 02/19/19 98.4 90 18 141/65 97 RA 07:46 in bed, more awake, rr syst m+, cta, +1-2 pit edema, warm, less tender Results Result Diagram: 02/20/1935 02/20/1935 Medications Medications Current Medications Pantoprazole (Protonix Tab) 40 mg BID@06,18 PO Last administered on 02/21/19 05:51; Admin Dose 40 MG; Start 02/03/19 at 18:00 Levothyroxine Sodium (Synthroid) 50 mcg DAILY@06 PO Last administered on 02/21/19 05:51; Admin Dose 50 MCG; Start 02/04/19 at 06:00 Gabapentin (Neurontin) 300 mg HS PO Last administered on 02/20/19 20:20; Admin Dose 300 MG; Start 02/03/19 at 21:00 Carbidopa/Levodopa (Sinemet (25/ 100)) 1 tab TID PO Last administered on 02/21/19 08:48; Admin Dose 1 TAB; Start 02/03/19 at 21:00 Ferrous Sulfate (Ferrous Sulfate (Ec)) 325 mg TID PO Last administered on 02/21/19 08:48; Admin Dose 325 MG; Start 02/03/19 at 21:00 Mupirocin (Bactroban) 1 applic BID TOP Last administered on 02/20/19 20:20; Admin Dose 1 APPLIC; Start 02/03/19 at 21:00 Aspirin (Halfprin) 81 mg DAILY PO Last administered on 02/21/19 08:48; Admin Dose 81 MG; Start 02/05/19 at 09:00 Benazepril HCl (Lotensin) 40 mg DAILY PO Last administered on 02/21/19 08:49; Admin Dose 40 MG; Start 02/04/19 at 14:30 Clopidogrel Bisulfate (plaVIX) 75 mg DAILY PO Last administered on 02/21/19 08:49; Admin Dose 75 MG; Start 02/04/19 at 14:30 Tramadol HCl (Ultram) 50 mg Q6H PRN PO MODERATE PAIN LEVEL 4-6 Last administered on 02/16/19 09:32; Admin Dose 50 MG; Start 02/07/19 at 16:30 Docusate Sodium (Colace) 100 mg BID PO Last administered on 02/21/19 08:49; Admin Dose 100 MG; Start 02/07/19 at 18:00 Acetaminophen (Tylenol Tab) 650 mg Q6H PRN PO MILD PAIN(1-3)OR ELEVATED TEMP Last administered on 02/10/19 11:12; Admin Dose 650 MG; Start 02/07/19 at 22:00 Sodium Biphosphate/ Sodium Phosphate (Fleet Enema) 133 ml DAILY PRN [place] CONSTIPATION Last administered on 02/12/19 13:07; Admin Dose 133 ML; Start 02/08/19 at 13:30 Diphenhydramine HCl (Benadryl) 25 mg HS PO Last administered on 02/20/19 20:20; Admin Dose 25 MG; Start 02/09/19 at 21:00 Gabapentin (Neurontin) 100 mg TID PO Last administered on 02/21/19 08:48; Admin Dose 100 MG; Start 02/09/19 at 21:00 Furosemide (Lasix) 40 mg DAILY IV Last administered on 02/21/19 08:48; Admin Dose 40 MG; Start 02/11/19 at 09:00 VTE Prophylaxis Risk score (from Ns)>0 risk: 9 SCD applied (from Ns): No SCD contraindication: low risk/ambulating Pharmacological prophylaxis: apixaban, other (asa) Lines/Catheters IV Catheter Type: Saline Lock Central line still needed: No Zepeda in Place: No Assessment/Plan Assessment/Plan 1. pvd/ s/p rt fem-pop #16 2. htn 3. ckd II/ anemia 4. parkinson's/ age related weakness/ mobility ds 5. anxiety/ depression 6. low t4 ---per vasc surg ---inc bp med ---tighter pain med ---must inc po vin intake, considering megace 40mg qd ---awaiting insurance ok on aru admission DULCE BENNETT MD Feb 21, 2019 09:55
--- NOTE | 2019-02-21 09:55 | PN ---
Date/Time of Note Date/Time of Note DATE: 02/21/19 TIME: 09:55 Subjective can I go home? Objective Vitals Vital Signs Date Temp Pulse Resp B/P (MAP) Pulse Ox O2 O2 Flow FiO2 Time Delivery Rate 02/21/19 98.4 59 18 116/56 97 RA 07:46 (76) still low endurance level, using bed side commode+, rr syst m+, cta, rt ankle area ulcer 0.7cm oval open clean+, still +1 pit edema, Results Result Diagram: 02/20/1953402/20/19534 Medications Medications Current Medications Pantoprazole (Protonix Tab) 40 mg BID@06,18 PO Last administered on 02/21/19 05:51; Admin Dose 40 MG; Start 02/03/19 at 18:00 Levothyroxine Sodium (Synthroid) 50 mcg DAILY@06 PO Last administered on 02/21/19 05:51; Admin Dose 50 MCG; Start 02/04/19 at 06:00 Gabapentin (Neurontin) 300 mg HS PO Last administered on 02/20/19 20:20; Admin Dose 300 MG; Start 02/03/19 at 21:00 Carbidopa/Levodopa (Sinemet (25/ 100)) 1 tab TID PO Last administered on 02/21/19 08:48; Admin Dose 1 TAB; Start 02/03/19 at 21:00 Ferrous Sulfate (Ferrous Sulfate (Ec)) 325 mg TID PO Last administered on 02/21/19 08:48; Admin Dose 325 MG; Start 02/03/19 at 21:00 Mupirocin (Bactroban) 1 applic BID TOP Last administered on 02/20/19 20:20; Admin Dose 1 APPLIC; Start 02/03/19 at 21:00 Aspirin (Halfprin) 81 mg DAILY PO Last administered on 02/21/19 08:48; Admin Dose 81 MG; Start 02/05/19 at 09:00 Benazepril HCl (Lotensin) 40 mg DAILY PO Last administered on 02/21/19 08:49; Admin Dose 40 MG; Start 02/04/19 at 14:30 Clopidogrel Bisulfate (plaVIX) 75 mg DAILY PO Last administered on 02/21/19 08:49; Admin Dose 75 MG; Start 02/04/19 at 14:30 Tramadol HCl (Ultram) 50 mg Q6H PRN PO MODERATE PAIN LEVEL 4-6 Last administered on 02/16/19 09:32; Admin Dose 50 MG; Start 02/07/19 at 16:30 Docusate Sodium (Colace) 100 mg BID PO Last administered on 02/21/19 08:49; Admin Dose 100 MG; Start 02/07/19 at 18:00 Acetaminophen (Tylenol Tab) 650 mg Q6H PRN PO MILD PAIN(1-3)OR ELEVATED TEMP Last administered on 02/10/19 11:12; Admin Dose 650 MG; Start 02/07/19 at 22:00 Sodium Biphosphate/ Sodium Phosphate (Fleet Enema) 133 ml DAILY PRN [place] CONSTIPATION Last administered on 02/12/19 13:07; Admin Dose 133 ML; Start 02/08/19 at 13:30 Diphenhydramine HCl (Benadryl) 25 mg HS PO Last administered on 02/20/19 20:20; Admin Dose 25 MG; Start 02/09/19 at 21:00 Gabapentin (Neurontin) 100 mg TID PO Last administered on 02/21/19 08:48; Admin Dose 100 MG; Start 02/09/19 at 21:00 Furosemide (Lasix) 40 mg DAILY IV Last administered on 02/21/19 08:48; Admin Dose 40 MG; Start 02/11/19 at 09:00 VTE Prophylaxis Risk score (from [facility])>0 risk: 9 SCD applied (from [facility]): No SCD contraindication: low risk/ambulating Lines/Catheters IV Catheter Type: Saline Lock Central line still needed: No Zepeda in Place: No Assessment/Plan Assessment/Plan 1. pvd/ s/p rt fem-pop #18 2. htn 3. ckd II/ anemia 4. low t4 5. depression/ anxiety 6. Parkinson's/ old age related weakness/ mobility ds ---cont full PT exercises meantime ---per vasc surg ---inc po vin intake ---awaiting insurance ok on snf rehab prog admit DULCE BENNETT MD Feb 21, 2019 09:55
--- NOTE | 2019-02-21 09:56 | PN ---
Date/Time of Note Date/Time of Note DATE: 02/20/19 TIME: 12:56 Subjective stronger Objective Vitals Vital Signs Date Temp Pulse Resp B/P (MAP) Pulse Ox O2 O2 Flow FiO2 Time Delivery Rate 02/21/19 98.4 59 18 116/56 97 07:46 (76) 02/20/19 Room Air 15:26 Intake and Output 02/20/19 02/20/19 02/21/19 1515:00 23:00 07:00 IntakeIntake Total 790 ml 360 ml OutputOutput Total 700 ml 400 ml BalanceBalance 90 ml -40 ml able to transfer to chair near bed, a&o x3, rr syst m+, cta, sm open ulcer rt ankle area+, only +1 pit edema Results Result Diagram: 02/20/1935 02/20/1935 Medications Medications Current Medications Pantoprazole (Protonix Tab) 40 mg BID@06,18 PO Last administered on 02/21/19 05:51; Admin Dose 40 MG; Start 02/03/19 at 18:00 Levothyroxine Sodium (Synthroid) 50 mcg DAILY@06 PO Last administered on 02/21/19 05:51; Admin Dose 50 MCG; Start 02/04/19 at 06:00 Gabapentin (Neurontin) 300 mg HS PO Last administered on 02/20/19 20:20; Admin Dose 300 MG; Start 02/03/19 at 21:00 Carbidopa/Levodopa (Sinemet (25/ 100)) 1 tab TID PO Last administered on 02/21/19 08:48; Admin Dose 1 TAB; Start 02/03/19 at 21:00 Ferrous Sulfate (Ferrous Sulfate (Ec)) 325 mg TID PO Last administered on 02/21/19 08:48; Admin Dose 325 MG; Start 02/03/19 at 21:00 Mupirocin (Bactroban) 1 applic BID TOP Last administered on 02/20/19 20:20; Admin Dose 1 APPLIC; Start 02/03/19 at 21:00 Aspirin (Halfprin) 81 mg DAILY PO Last administered on 02/21/19 08:48; Admin Dose 81 MG; Start 02/05/19 at 09:00 Benazepril HCl (Lotensin) 40 mg DAILY PO Last administered on 8/6/19at 08:49; Admin Dose 40 MG; Start 02/04/19 at 14:30 Clopidogrel Bisulfate (plaVIX) 75 mg DAILY PO Last administered on 02/21/19 08:49; Admin Dose 75 MG; Start 02/04/19 at 14:30 Tramadol HCl (Ultram) 50 mg Q6H PRN PO MODERATE PAIN LEVEL 4-6 Last administered on 02/16/19 09:32; Admin Dose 50 MG; Start 02/07/19 at 16:30 Docusate Sodium (Colace) 100 mg BID PO Last administered on 02/21/19 08:49; Admin Dose 100 MG; Start 02/07/19 at 18:00 Acetaminophen (Tylenol Tab) 650 mg Q6H PRN PO MILD PAIN(1-3)OR ELEVATED TEMP Last administered on 02/10/19 11:12; Admin Dose 650 MG; Start 02/07/19 at 22:00 Sodium Biphosphate/ Sodium Phosphate (Fleet Enema) 133 ml DAILY PRN [place] CONSTIPATION Last administered on 02/12/19 13:07; Admin Dose 133 ML; Start 02/08/19 at 13:30 Diphenhydramine HCl (Benadryl) 25 mg HS PO Last administered on 02/20/19 20:20; Admin Dose 25 MG; Start 02/09/19 at 21:00 Gabapentin (Neurontin) 100 mg TID PO Last administered on 02/21/19 08:48; Admin Dose 100 MG; Start 02/09/19 at 21:00 Furosemide (Lasix) 40 mg DAILY IV Last administered on 02/21/19 08:48; Admin Dose 40 MG; Start 02/11/19 at 09:00 VTE Prophylaxis Risk score (from Nsg)>0 risk: 9 SCD applied (from Nsg): No SCD contraindication: low risk/ambulating Pharmacological prophylaxis: apixaban, other (asa) Lines/Catheters IV Catheter Type: Saline Lock Central line still needed: No Zepeda in Place: No Assessment/Plan Assessment/Plan 1. pvd/ s/p rt fem-pop #18--slow recovery, still with mod pain 2. old age & Parkinson's mobility difficulty & weakness 3. depression/ anxiety 4. low t4 5. htn 6. ckd II/ anemia ---cont all supportive cares ---cont full phys rx exercise ---inc levothyrox to 75mcg qd ---awaiting insurance ok to transfer to snf rehab program DULCE BENNETT MD Feb 21, 2019 09:56
[2019-02-21] MEDS: METOPROLOL 25 MG TAB PO SCH (11:00)
[2019-02-21 15:34] VITALS: BP 95/53; PULSE 72; RESP 17
[2019-02-21 20:59] VITALS: BP 115/53; PULSE 69; RESP 18
[2019-02-21] MEDS: GABAPENTIN 300 MG CAP PO SCH (21:04)
[2019-02-21] MEDS: DIPHENHYDRAMINE 25 MG CAP PO SCH (21:04)
[2019-02-22 01:59] VITALS: BP 118/59; PULSE 61; RESP 17
[2019-02-22] MEDS: LEVOTHYROXINE 75 MCG TAB PO SCH (06:15)
[2019-02-22] MEDS: PANTOPRAZOLE (EC) 40 MG TAB PO SCH ×2 (06:15→17:39)
[2019-02-22 07:52] VITALS: BP 138/58; PULSE 60; RESP 19
[2019-02-22] MEDS: MUPIROCIN 2% 22 GM OINT TOP SCH ×2 (09:00→21:00)
[2019-02-22] MEDS: CARBIDOPA/LEVODOPA (25/100) TAB PO SCH ×3 (09:15→21:50)
[2019-02-22] MEDS: GABAPENTIN 100 MG CAP PO SCH ×3 (09:15→21:50)
[2019-02-22] MEDS: METOPROLOL 25 MG TAB PO SCH (09:15)
[2019-02-22] MEDS: DOCUSATE SODIUM 100 MG CAP PO SCH ×2 (09:15→21:51)
[2019-02-22] MEDS: FERROUS SULFATE (EC) 325 MG TAB PO SCH ×3 (09:15→21:50)
[2019-02-22] MEDS: ASPIRIN (EC) 81 MG TAB PO SCH (09:15)
[2019-02-22] MEDS: BENAZEPRIL 40 MG TAB PO SCH (09:15)
[2019-02-22] MEDS: CLOPIDOGREL 75 MG TAB PO SCH (09:15)
[2019-02-22] MEDS: FUROSEMIDE 40 MG TAB PO SCH (09:19)
[2019-02-22 14:31] VITALS: BP 103/52; PULSE 74; RESP 18
[2019-02-22 19:28] VITALS: BP 102/50; PULSE 60; RESP 17
[2019-02-22] MEDS: GABAPENTIN 300 MG CAP PO SCH (21:50)
[2019-02-22] MEDS: DIPHENHYDRAMINE 25 MG CAP PO SCH (21:51)
[2019-02-23 01:04] VITALS: BP 114/53; PULSE 61; RESP 16
[2019-02-23] MEDS: LEVOTHYROXINE 75 MCG TAB PO SCH (05:19)
[2019-02-23] MEDS: PANTOPRAZOLE (EC) 40 MG TAB PO SCH ×2 (05:19→17:26)
[2019-02-23 07:26] VITALS: BP 101/54; PULSE 60; RESP 16
[2019-02-23] MEDS: METOPROLOL 25 MG TAB PO SCH (09:00)
[2019-02-23] MEDS: MUPIROCIN 2% 22 GM OINT TOP SCH ×2 (09:00→20:48)
[2019-02-23 09:21] VITALS: BP 137/61; PULSE 58
[2019-02-23] MEDS: CLOPIDOGREL 75 MG TAB PO SCH (09:23)
[2019-02-23] MEDS: FERROUS SULFATE (EC) 325 MG TAB PO SCH ×3 (09:23→20:47)
[2019-02-23] MEDS: GABAPENTIN 100 MG CAP PO SCH ×3 (09:23→20:47)
[2019-02-23] MEDS: DOCUSATE SODIUM 100 MG CAP PO SCH ×2 (09:23→20:47)
[2019-02-23] MEDS: ASPIRIN (EC) 81 MG TAB PO SCH (09:23)
[2019-02-23] MEDS: BENAZEPRIL 40 MG TAB PO SCH (09:23)
[2019-02-23] MEDS: FUROSEMIDE 40 MG TAB PO SCH (09:23)
[2019-02-23] MEDS: CARBIDOPA/LEVODOPA (25/100) TAB PO SCH ×3 (09:23→20:47)
[2019-02-23 14:23] VITALS: BP 101/50; PULSE 60; RESP 16
--- NOTE | 2019-02-23 19:04 | PN ---
Date/Time of Note Date/Time of Note DATE: 02/22/19 TIME: 11:04 Subjective weaker today, only stood by bed Objective Vitals Vital Signs Date Temp Pulse Resp B/P (MAP) Pulse Ox O2 O2 Flow FiO2 Time Delivery Rate 02/22/19 97.5 84 16 138/58 96 RA 14:23 Intake and Output 02/22/19 02/22/19 1515:00 23:00 IntakeIntake Total 1420 ml 350 ml BalanceBalance 1420 ml 350 ml in bed, a&ox4, rr syst m+, cta, rt leg warm, ulcer closing/ dry/ clean, Results Result Diagram: 02/22/1961202/22/19612 Medications Medications Current Medications Pantoprazole (Protonix Tab) 40 mg BID@06,18 PO Last administered on 02/23/19 17:26; Admin Dose 40 MG; Start 02/03/19 at 18:00 Gabapentin (Neurontin) 300 mg HS PO Last administered on 02/22/19 21:50; Admin Dose 300 MG; Start 02/03/19 at 21:00 Carbidopa/Levodopa (Sinemet (25/ 100)) 1 tab TID PO Last administered on 02/23/19 13:30; Admin Dose 1 TAB; Start 02/03/19 at 21:00 Ferrous Sulfate (Ferrous Sulfate (Ec)) 325 mg TID PO Last administered on 02/23/19 13:30; Admin Dose 325 MG; Start 02/03/19 at 21:00 Mupirocin (Bactroban) 1 applic BID TOP Last administered on 02/20/19 20:20; Admin Dose 1 APPLIC; Start 02/03/19 at 21:00 Aspirin (Halfprin) 81 mg DAILY PO Last administered on 02/23/19 09:23; Admin Dose 81 MG; Start 02/05/19 at 09:00 Benazepril HCl (Lotensin) 40 mg DAILY PO Last administered on 02/23/19 09:23; Admin Dose 40 MG; Start 02/04/19 at 14:30 Clopidogrel Bisulfate (plaVIX) 75 mg DAILY PO Last administered on 02/23/19 09:23; Admin Dose 75 MG; Start 02/04/19 at 14:30 Tramadol HCl (Ultram) 50 mg Q6H PRN PO MODERATE PAIN LEVEL 4-6 Last administered on 02/16/19 09:32; Admin Dose 50 MG; Start 02/07/19 at 16:30 Docusate Sodium (Colace) 100 mg BID PO Last administered on 02/23/19 09:23; Admin Dose 100 MG; Start 02/07/19 at 18:00 Acetaminophen (Tylenol Tab) 650 mg Q6H PRN PO MILD PAIN(1-3)OR ELEVATED TEMP Last administered on 02/10/19 11:12; Admin Dose 650 MG; Start 02/07/19 at 22:00 Sodium Biphosphate/ Sodium Phosphate (Fleet Enema) 133 ml DAILY PRN [place] CONSTIPATION Last administered on 02/12/19 13:07; Admin Dose 133 ML; Start 02/08/19 at 13:30 Diphenhydramine HCl (Benadryl) 25 mg HS PO Last administered on 02/22/19 21:51; Admin Dose 25 MG; Start 02/09/19 at 21:00 Gabapentin (Neurontin) 100 mg TID PO Last administered on 02/23/19 13:30; Admin Dose 100 MG; Start 02/09/19 at 21:00 Levothyroxine Sodium (Synthroid) 75 mcg DAILY@06 PO Last administered on 02/23/19 05:19; Admin Dose 75 MCG; Start 02/22/19 at 06:00 Furosemide (Lasix) 40 mg DAILY PO Last administered on 02/23/19 09:23; Admin Dose 40 MG; Start 02/22/19 at 09:00 Metoprolol Tartrate (Lopressor) 25 mg DAILY PO Last administered on 02/22/19 09:15; Admin Dose 25 MG; Start 02/21/19 at 11:00 VTE Prophylaxis Risk score (from Nsg)>0 risk: 4 SCD applied (from Nsg): No SCD contraindication: low risk/ambulating Pharmacological prophylaxis: apixaban, other (asa) Lines/Catheters IV Catheter Type: Saline Lock Central line still needed: No Zepeda in Place: No Assessment/Plan Assessment/Plan 1. pvd/ s/p rt fem-pop #19 2. age related mobility ds/ parkinson's/ weak musc--very slow recovery to walk ([id number] to walk with walker to bathroom & kitchen independently) 3.ckd III/ anemia--bun/ creat worse with po lasix, high k 4. htn 5. rld 6. hypo thyroid 7. anxiety/ depression--pt wants to go home, not snf, but elderly cannot support pt at home ---per vasc surg ---full participation with PT ---dec ying inh ---may need to inc DULCE Hunt MD Feb 23, 2019 19:04
--- NOTE | 2019-02-23 19:09 | PN ---
Date/Time of Note Date/Time of Note DATE: 02/23/19 TIME: 19:05 Subjective cannot walk to bathroom Objective Vitals Vital Signs Date Temp Pulse Resp B/P (MAP) Pulse Ox O2 O2 Flow FiO2 Time Delivery Rate 02/23/19 97.5 60 16 101/50 96 14:23 (67) 02/21/19 Room Air 20:59 Intake and Output 02/22/19 02/22/19 02/23/19 1515:00 23:00 07:00 IntakeIntake Total 1420 ml 350 ml 240 ml BalanceBalance 1420 ml 350 ml 240 ml able to stand, walk around with assist & holding onto bed or walker+, rr syst m+, cta, +1 pit edema rt leg, war,. dry closing ankle ulcer Results Result Diagram: 02/22/1961202/22/19612 Medications Medications Current Medications Pantoprazole (Protonix Tab) 40 mg BID@06,18 PO Last administered on 02/23/19 17:26; Admin Dose 40 MG; Start 02/03/19 at 18:00 Gabapentin (Neurontin) 300 mg HS PO Last administered on 02/22/19 21:50; Admin Dose 300 MG; Start 02/03/19 at 21:00 Carbidopa/Levodopa (Sinemet (25/ 100)) 1 tab TID PO Last administered on 02/23/19 13:30; Admin Dose 1 TAB; Start 02/03/19 at 21:00 Ferrous Sulfate (Ferrous Sulfate (Ec)) 325 mg TID PO Last administered on 02/23/19 13:30; Admin Dose 325 MG; Start 02/03/19 at 21:00 Mupirocin (Bactroban) 1 applic BID TOP Last administered on 02/20/19 20:20; Admin Dose 1 APPLIC; Start 02/03/19 at 21:00 Aspirin (Halfprin) 81 mg DAILY PO Last administered on 02/23/19 09:23; Admin Dose 81 MG; Start 02/05/19 at 09:00 Benazepril HCl (Lotensin) 40 mg DAILY PO Last administered on 02/23/19 09:23; Admin Dose 40 MG; Start 02/04/19 at 14:30 Clopidogrel Bisulfate (plaVIX) 75 mg DAILY PO Last administered on 02/23/19 09:23; Admin Dose 75 MG; Start 02/04/19 at 14:30 Tramadol HCl (Ultram) 50 mg Q6H PRN PO MODERATE PAIN LEVEL 4-6 Last administered on 02/16/19 09:32; Admin Dose 50 MG; Start 02/07/19 at 16:30 Docusate Sodium (Colace) 100 mg BID PO Last administered on 02/23/19 09:23; Admin Dose 100 MG; Start 02/07/19 at 18:00 Acetaminophen (Tylenol Tab) 650 mg Q6H PRN PO MILD PAIN(1-3)OR ELEVATED TEMP Last administered on 02/10/19 11:12; Admin Dose 650 MG; Start 02/07/19 at 22:00 Sodium Biphosphate/ Sodium Phosphate (Fleet Enema) 133 ml DAILY PRN [place] CONSTIPATION Last administered on 02/12/19 13:07; Admin Dose 133 ML; Start 02/08/19 at 13:30 Diphenhydramine HCl (Benadryl) 25 mg HS PO Last administered on 02/22/19 21:51; Admin Dose 25 MG; Start 02/09/19 at 21:00 Gabapentin (Neurontin) 100 mg TID PO Last administered on 02/23/19 13:30; Admin Dose 100 MG; Start 02/09/19 at 21:00 Levothyroxine Sodium (Synthroid) 75 mcg DAILY@06 PO Last administered on 02/23/19 05:19; Admin Dose 75 MCG; Start 02/22/19 at 06:00 Furosemide (Lasix) 40 mg DAILY PO Last administered on 02/23/19 09:23; Admin Dose 40 MG; Start 02/22/19 at 09:00 Metoprolol Tartrate (Lopressor) 25 mg DAILY PO Last administered on 02/22/19 09:15; Admin Dose 25 MG; Start 02/21/19 at 11:00 VTE Prophylaxis Risk score (from Nsg)>0 risk: 4 SCD applied (from Nsg): No SCD contraindication: low risk/ambulating Pharmacological prophylaxis: apixaban, other (asa) Lines/Catheters IV Catheter Type: Saline Lock Central line still needed: No Zepeda in Place: No Assessment/Plan Assessment/Plan 1. pvd/ s/p rt fem-pop #20 2. parkinson's/ age related mobility ds/ musc weak 3. anxiety/ depression 4. ckd II/ anemia 5. htn 6. hypo-thyroid 7. rld ---awaiting ins ok on snf transfer ---must cont full PT exercise ---per vasc surg ---cont all supportive cares DULCE BENNETT MD Feb 23, 2019 19:09
[2019-02-23 20:00] VITALS: BP 117/53; PULSE 68; RESP 16
[2019-02-23] MEDS: GABAPENTIN 300 MG CAP PO SCH (20:47)
[2019-02-23] MEDS: DIPHENHYDRAMINE 25 MG CAP PO SCH (20:47)
[2019-02-24 02:40] VITALS: BP 100/47; PULSE 64; RESP 18
[2019-02-24] MEDS: LEVOTHYROXINE 75 MCG TAB PO SCH (06:12)
[2019-02-24] MEDS: PANTOPRAZOLE (EC) 40 MG TAB PO SCH ×2 (06:12→17:50)
[2019-02-24 08:15] VITALS: BP 135/60; PULSE 57; RESP 18
[2019-02-24] MEDS: METOPROLOL 25 MG TAB PO SCH (09:00)
[2019-02-24] MEDS: CLOPIDOGREL 75 MG TAB PO SCH (09:37)
[2019-02-24] MEDS: DOCUSATE SODIUM 100 MG CAP PO SCH ×2 (09:37→20:44)
[2019-02-24] MEDS: GABAPENTIN 100 MG CAP PO SCH ×3 (09:38→20:44)
[2019-02-24] MEDS: CARBIDOPA/LEVODOPA (25/100) TAB PO SCH ×3 (09:38→20:44)
[2019-02-24] MEDS: FERROUS SULFATE (EC) 325 MG TAB PO SCH ×3 (09:38→20:44)
[2019-02-24] MEDS: ASPIRIN (EC) 81 MG TAB PO SCH (09:38)
[2019-02-24] MEDS: FUROSEMIDE 40 MG TAB PO SCH (09:39)
[2019-02-24] MEDS: MUPIROCIN 2% 22 GM OINT TOP SCH ×2 (09:40→20:44)
[2019-02-24] MEDS: BENAZEPRIL 40 MG TAB PO SCH (09:40)
--- NOTE | 2019-02-24 11:36 | PN ---
Date/Time of Note Date/Time of Note DATE: 02/24/19 TIME: 11:33 Assessment/Plan Lines/Catheters IV Catheter Type (from Nrsg): Saline Lock Zepeda in Place (from Nrsg): No Assessment/Plan Assessment/Plan Doing well s/p R fem-pop Incisions are all healed and the distal calf and ankle ulcer are now closed, no more pain OK to shower and rewrap the calf with 3 layer compression afterward, continue to change 2-3 x / week OK for ARU or SNF transfer from my standpoint Subjective 24 Hr Interval Summary No pain. Ambulating with PT. Still feels weak. Exam/Review of Systems Vital Signs Vitals Vital Signs Date Temp Pulse Resp B/P (MAP) Pulse Ox O2 O2 Flow FiO2 Time Delivery Rate 02/24/19 98.3 57 18 135/60 97 08:15 (85) 02/21/19 Room Air 20:59 Intake and Output 02/23/19 02/23/19 02/24/19 1515:00 23:00 07:00 IntakeIntake Total 1000 ml 480 ml BalanceBalance 1000 ml 480 ml Exam Free Text/Dictation R leg incisions are all healed well, no drainage or erythema Moderate thigh edema, minimal in the calf The R distal calf ulcer is completely healed 3+ DP pulse, foot warm Results Result Diagram: 02/24/19 0539 02/24/19 0538 ALLY DAY MD Feb 24, 2019 11:36
[2019-02-24 14:12] VITALS: BP 128/63; PULSE 59; RESP 18
[2019-02-24 14:31] VITALS: BP 132/71; PULSE 80; RESP 18
--- NOTE | 2019-02-24 15:42 | PN ---
Date/Time of Note Date/Time of Note DATE: 02/24/19 TIME: 15:36 Subjective weak, less surg leg pain Objective Vitals Vital Signs Date Temp Pulse Resp B/P (MAP) Pulse Ox O2 O2 Flow FiO2 Time Delivery Rate 02/24/19 97.5 80 18 132/71 92 14:31 (91) 02/21/19 Room Air 20:59 Intake and Output 02/23/19 02/23/19 02/24/19 1515:00 23:00 07:00 IntakeIntake Total 1000 ml 480 ml BalanceBalance 1000 ml 480 ml in bed, full participation with PT today, walk 1/[address] to bathroom, a7O x3, rr syst m+, cta, rt leg +1 pit edema, surg site clean & dry, no more open ulcer Results Result Diagram: 02/24/19 0539 02/24/19 0538 Medications Medications Current Medications Pantoprazole (Protonix Tab) 40 mg BID@06,18 PO Last administered on 02/24/19 06:12; Admin Dose 40 MG; Start 02/03/19 at 18:00 Gabapentin (Neurontin) 300 mg HS PO Last administered on 02/23/19 20:47; Admin Dose 300 MG; Start 02/03/19 at 21:00 Carbidopa/Levodopa (Sinemet (25/ 100)) 1 tab TID PO Last administered on 02/24/19 13:58; Admin Dose 1 TAB; Start 02/03/19 at 21:00 Ferrous Sulfate (Ferrous Sulfate (Ec)) 325 mg TID PO Last administered on 02/24/19 13:58; Admin Dose 325 MG; Start 02/03/19 at 21:00 Mupirocin (Bactroban) 1 applic BID TOP Last administered on 02/24/19 09:40; Admin Dose 1 APPLIC; Start 02/03/19 at 21:00 Aspirin (Halfprin) 81 mg DAILY PO Last administered on 02/24/19 09:38; Admin Dose 81 MG; Start 02/05/19 at 09:00 Clopidogrel Bisulfate (plaVIX) 75 mg DAILY PO Last administered on 02/24/19 09:37; Admin Dose 75 MG; Start 02/04/19 at 14:30 Tramadol HCl (Ultram) 50 mg Q6H PRN PO MODERATE PAIN LEVEL 4-6 Last administered on 02/16/19 09:32; Admin Dose 50 MG; Start 02/07/19 at 16:30 Docusate Sodium (Colace) 100 mg BID PO Last administered on 02/24/19 09:37; Admin Dose 100 MG; Start 02/07/19 at 18:00 Acetaminophen (Tylenol Tab) 650 mg Q6H PRN PO MILD PAIN(1-3)OR ELEVATED TEMP Last administered on 02/10/19 11:12; Admin Dose 650 MG; Start 02/07/19 at 22:00 Sodium Biphosphate/ Sodium Phosphate (Fleet Enema) 133 ml DAILY PRN [place] CONSTIPATION Last administered on 02/12/19 13:07; Admin Dose 133 ML; Start 02/08/19 at 13:30 Diphenhydramine HCl (Benadryl) 25 mg HS PO Last administered on 02/23/19 20:47; Admin Dose 25 MG; Start 02/09/19 at 21:00 Gabapentin (Neurontin) 100 mg TID PO Last administered on 02/24/19 13:58; Admin Dose 100 MG; Start 02/09/19 at 21:00 Levothyroxine Sodium (Synthroid) 75 mcg DAILY@06 PO Last administered on 02/24/19 06:12; Admin Dose 75 MCG; Start 02/22/19 at 06:00 Furosemide (Lasix) 40 mg DAILY PO Last administered on 02/24/19 09:39; Admin Dose 40 MG; Start 02/22/19 at 09:00 Metoprolol Tartrate (Lopressor) 25 mg DAILY PO Last administered on 02/22/19 09:15; Admin Dose 25 MG; Start 02/21/19 at 11:00 Benazepril HCl (Lotensin) 20 mg DAILY PO Last administered on 02/24/19 09:40; Admin Dose 20 MG; Start 02/24/19 at 09:00 VTE Prophylaxis Risk score (from Nsg)>0 risk: 3 SCD applied (from Nsg): No SCD contraindication: low risk/ambulating Pharmacological prophylaxis: apixaban, other (asa) Lines/Catheters IV Catheter Type: Saline Lock Central line still needed: No Zepeda in Place: No Assessment/Plan Assessment/Plan 1. pvd/ s/p rt fem-pop #21 2. very slow recovery, still very short distance independet walk--age related mobility ds/ parkinson's/ musc weak 3. worsened ckd III after lasix changed from iv to po/ anemia 4. htn 5. anxiety/ depression 6. hypo thyroid 7. rld ---per vasc surg ---must cont fully participate PT exercise ---await insurance ok on snf rehab exercise program, cannot go home since nothing can be done independently & elderly cannot help ---inc lasix to 80mg qd ---extra lasix 40mg today ---extra metolazone 5mg x1 today DULCE BENNETT MD Feb 24, 2019 15:42
[2019-02-24] MEDS ORDERED: FUROSEMIDE 40 MG TAB PO ONE (16:00)
[2019-02-24] MEDS ORDERED: METOLAZONE 5 MG TAB PO ONE (16:00)
[2019-02-24 20:15] VITALS: BP 97/45; PULSE 63; RESP 15
[2019-02-24] MEDS: GABAPENTIN 300 MG CAP PO SCH (20:44)
[2019-02-24] MEDS: DIPHENHYDRAMINE 25 MG CAP PO SCH (20:44)
[2019-02-25] VITALS (8 sets, daily range): BP systolic 85–134; BP diastolic 44–75; PULSE 54–75; RESP 16
[2019-02-25] MEDS ORDERED: FUROSEMIDE 40 MG TAB PO SCH (06:00)
[2019-02-25] MEDS: LEVOTHYROXINE 75 MCG TAB PO SCH (06:04)
[2019-02-25] MEDS: PANTOPRAZOLE (EC) 40 MG TAB PO SCH ×2 (06:05→18:17)
[2019-02-25] MEDS: FERROUS SULFATE (EC) 325 MG TAB PO SCH ×3 (09:14→20:39)
[2019-02-25] MEDS: CARBIDOPA/LEVODOPA (25/100) TAB PO SCH ×3 (09:14→20:39)
[2019-02-25] MEDS: CLOPIDOGREL 75 MG TAB PO SCH (09:14)
[2019-02-25] MEDS: DOCUSATE SODIUM 100 MG CAP PO SCH ×2 (09:14→20:39)
[2019-02-25] MEDS: ASPIRIN (EC) 81 MG TAB PO SCH (09:14)
[2019-02-25] MEDS: GABAPENTIN 100 MG CAP PO SCH ×3 (09:14→20:40)
[2019-02-25] MEDS: BENAZEPRIL 40 MG TAB PO SCH (09:18)
[2019-02-25] MEDS: MUPIROCIN 2% 22 GM OINT TOP SCH ×2 (09:19→20:40)
[2019-02-25] MEDS: METOPROLOL 25 MG TAB PO SCH ×2 (09:19→20:40)
--- NOTE | 2019-02-25 15:29 | PN ---
Date/Time of Note Date/Time of Note DATE: 02/25/19 TIME: 10:28 Subjective ate more, walked out hallway with PT & walker Objective Vitals Vital Signs Date Temp Pulse Resp B/P (MAP) Pulse Ox O2 O2 Flow FiO2 Time Delivery Rate 02/25/19 65 09:19 02/25/19 97.5 16 134/60 97 07:38 (84) 02/21/19 Room Air 20:59 Intake and Output 02/24/19 02/24/19 02/25/19 1414:59 22:59 06:59 IntakeIntake Total 1120 ml 600 ml BalanceBalance 1120 ml 600 ml not drinking enough, in bed, a&o x3, rr syst m+, cta, no edema, rt ulcer clean & dry Results Result Diagram: 02/24/19 0539 02/25/19 0504 Medications Medications Current Medications Pantoprazole (Protonix Tab) 40 mg BID@06,18 PO Last administered on 02/25/19 06:05; Admin Dose 40 MG; Start 02/03/19 at 18:00 Gabapentin (Neurontin) 300 mg HS PO Last administered on 02/24/19at 20:44; Admin Dose 300 MG; Start 02/03/19 at 21:00 Carbidopa/Levodopa (Sinemet (25/ 100)) 1 tab TID PO Last administered on 02/25/19 13:53; Admin Dose 1 TAB; Start 02/03/19 at 21:00 Ferrous Sulfate (Ferrous Sulfate (Ec)) 325 mg TID PO Last administered on 02/25/19 13:53; Admin Dose 325 MG; Start 02/03/19 at 21:00 Mupirocin (Bactroban) 1 applic BID TOP Last administered on 02/25/19 09:19; Admin Dose 1 APPLIC; Start 02/03/19 at 21:00 Aspirin (Halfprin) 81 mg DAILY PO Last administered on 02/25/19 09:14; Admin Dose 81 MG; Start 02/05/19 at 09:00 Clopidogrel Bisulfate (plaVIX) 75 mg DAILY PO Last administered on 02/25/19 09:14; Admin Dose 75 MG; Start 02/04/19 at 14:30 Tramadol HCl (Ultram) 50 mg Q6H PRN PO MODERATE PAIN LEVEL 4-6 Last admini stered on 02/16/19 09:32; Admin Dose 50 MG; Start 02/07/19 at 16:30 Docusate Sodium (Colace) 100 mg BID PO Last administered on 02/25/19 09:14; Admin Dose 100 MG; Start 02/07/19 at 18:00 Acetaminophen (Tylenol Tab) 650 mg Q6H PRN PO MILD PAIN(1-3)OR ELEVATED TEMP Last administered on 02/10/19 11:12; Admin Dose 650 MG; Start 02/07/19 at 22:00 Sodium Biphosphate/ Sodium Phosphate (Fleet Enema) 133 ml DAILY PRN [place] CONSTIPATION Last administered on 02/12/19 13:07; Admin Dose 133 ML; Start 01/17 11/04 at 13:30 Diphenhydramine HCl (Benadryl) 25 mg HS PO Last administered on 02/24/19 20:44; Admin Dose 25 MG; Start 02/09/19 at 21:00 Gabapentin (Neurontin) 100 mg TID PO Last administered on 02/25/19 13:53; Admin Dose 100 MG; Start 02/09/19 at 21:00 Levothyroxine Sodium (Synthroid) 75 mcg DAILY@06 PO Last administered on 02/25/19 06:04; Admin Dose 75 MCG; Start 02/22/19 at 06:00 Metoprolol Tartrate (Lopressor) 25 mg DAILY PO Last administered on 02/25/19 09:19; Admin Dose 25 MG; Start 02/21/19 at 11:00 Benazepril HCl (Lotensin) 20 mg DAILY PO Last administered on 02/25/19 09:18; Admin Dose 20 MG; Start 02/24/19 at 09:00 Furosemide (Lasix) 80 mg DAILY@0600 PO Last administered on 02/25/19 06:05; Admin Dose 80 MG; Start 02/25/19 at 06:00 VTE Prophylaxis Risk score (from Nsg)>0 risk: 4 SCD applied (from Nsg): No SCD contraindication: low risk/ambulating Lines/Catheters IV Catheter Type: Saline Lock Central line still needed: No Zepeda in Place: No Assessment/Plan Assessment/Plan 1. pvd/ s/p rt fem-pop #21 2. dehydration--higher bun/ creat 3. mobility ds/ weak musc/ parkinson's 4. htn 5. rld 6. ckd III/ anemia 7. hypo-thyroid ---stop all diuretics ---stop ying inh ---inc metoprolol 25mg bid ---ns 500cc today ---compression booths ---full PT exercise ---awaiting ins ok on snf rehab transfer DULCE BENNETT MD Feb 25, 2019 15:29
[2019-02-25] MEDS ORDERED: SOD CHLORIDE 0.9% 500 ML IV ONE (16:00)
[2019-02-25] MEDS: GABAPENTIN 300 MG CAP PO SCH (20:39)
[2019-02-25] MEDS: DIPHENHYDRAMINE 25 MG CAP PO SCH (20:39)
[2019-02-26 02:00] VITALS: BP 114/57; PULSE 51; RESP 18
[2019-02-26] MEDS: PANTOPRAZOLE (EC) 40 MG TAB PO SCH ×2 (05:36→18:06)
[2019-02-26] MEDS: LEVOTHYROXINE 75 MCG TAB PO SCH (05:36)
[2019-02-26 07:31] VITALS: BP 105/54; PULSE 52; RESP 16
[2019-02-26] MEDS: FERROUS SULFATE (EC) 325 MG TAB PO SCH ×3 (08:42→21:23)
[2019-02-26] MEDS: CLOPIDOGREL 75 MG TAB PO SCH (08:42)
[2019-02-26] MEDS: MUPIROCIN 2% 22 GM OINT TOP SCH ×2 (08:42→21:25)
[2019-02-26] MEDS: GABAPENTIN 100 MG CAP PO SCH ×3 (08:42→21:22)
[2019-02-26] MEDS: ASPIRIN (EC) 81 MG TAB PO SCH (08:42)
[2019-02-26] MEDS: CARBIDOPA/LEVODOPA (25/100) TAB PO SCH ×3 (08:42→21:22)
[2019-02-26] MEDS: DOCUSATE SODIUM 100 MG CAP PO SCH ×2 (08:42→21:22)
[2019-02-26] MEDS: METOPROLOL 25 MG TAB PO SCH ×2 (08:43→21:23)
[2019-02-26] MEDS ORDERED: FUROSEMIDE 40 MG INJ IV ONE (15:00)
--- NOTE | 2019-02-26 15:01 | PN ---
Date/Time of Note Date/Time of Note DATE: 02/26/19 TIME: 15:00 Subjective stronger, needs a lot of assist Objective Vitals Vital Signs Date Temp Pulse Resp B/P (MAP) Pulse Ox O2 O2 Flow FiO2 Time Delivery Rate 02/26/19 97.1 52 16 105/54 99 07:31 (71) Intake and Output 02/25/19 02/25/19 02/26/19 1515:00 23:00 07:00 IntakeIntake Total 960 ml 980 ml BalanceBalance 960 ml 980 ml sitting on commode+, rr syst m+, cta, rt> lf legs +1 pit edema, warm, no open ulcer Results Result Diagram: 02/26/1944402/26/19444 Medications Medications Current Medications Pantoprazole (Protonix Tab) 40 mg BID@06,18 PO Last administered on 02/26/19 05:36; Admin Dose 40 MG; Start 02/03/19 at 18:00 Gabapentin (Neurontin) 300 mg HS PO Last administered on 02/25/19 20:39; Admin Dose 300 MG; Start 02/03/19 at 21:00 Carbidopa/Levodopa (Sinemet (25/ 100)) 1 tab TID PO Last administered on 13:27; Admin Dose 1 TAB; Start 02/03/19 at 21:00 Ferrous Sulfate (Ferrous Sulfate (Ec)) 325 mg TID PO Last administered on 02/26/19 13:27; Admin Dose 325 MG; Start 02/03/19 at 21:00 Mupirocin (Bactroban) 1 applic BID TOP Last administered on 02/26/19 08:42; Admin Dose 1 APPLIC; Start 02/03/19 at 21:00 Aspirin (Halfprin) 81 mg DAILY PO Last administered on 02/26/19 08:42; Admin Dose 81 MG; Start 02/05/19 at 09:00 Clopidogrel Bisulfate (plaVIX) 75 mg DAILY PO Last administered on 02/26/19 08:42; Admin Dose 75 MG; Start 02/04/19 at 14:30 Tramadol HCl (Ultram) 50 mg Q6H PRN PO MODERATE PAIN LEVEL 4-6 Last administered on 02/16/19 09:32; Admin Dose 50 MG; Start 02/07/19 at 16:30 Docusate Sodium (Colace) 100 mg BID PO Last administered on 02/26/19 08:42; Admin Dose 100 MG; Start 02/07/19 at 18:00 Acetaminophen (Tylenol Tab) 650 mg Q6H PRN PO MILD PAIN(1-3)OR ELEVATED TEMP L ast administered on 02/10/19 11:12; Admin Dose 650 MG; Start 02/07/19 at 22:00 Sodium Biphosphate/ Sodium Phosphate (Fleet Enema) [address] CONSTIPATION Last administered on 02/12/19 13:07; Admin Dose 133 ML; Start 02/08/19 at 13:30 Diphenhydramine HCl (Benadryl) 25 mg HS PO Last administered on 02/25/19at 20:39; Admin Dose 25 MG; Start 02/09/19 at 21:00 Gabapentin (Neurontin) 100 mg TID PO Last administered on 02/26/19 13:27; Admin Dose 100 MG; Start 02/09/19 at 21:00 Levothyroxine Sodium (Synthroid) 75 mcg DAILY@06 PO Last administered on 02/26/19at 05:36; Admin Dose 75 MCG; Start 02/22/19 at 06:00 Metoprolol Tartrate (Lopressor) 25 mg BID PO ; Start 02/25/19 at 21:00 Furosemide (Lasix) 80 mg ONCE ONCE IV ; Start 02/26/19 at 15:00; Stop 02/26/19 at 15:01 VTE Prophylaxis Risk score (from Ns)>0 risk: 4 SCD applied (from Nsg): Yes Lines/Catheters IV Catheter Type: Saline Lock Central line still needed: No Zepeda in Place: No Assessment/Plan Assessment/Plan 1. ARF most likely fluid overload 2. pvd/ s/p rt fem-pop #22---slow recovery 3. anemia 4. htn/ most recent rt sm cva 5. parkinson's/ age related mobility ds/ musc weak 6. hypo-thyroid 7. rld ---change to renal diet mech soft ---keep sbp above 120 ---lasix 80mg iv x1 today ---renal u/s ---per vasc surg ---must cont full PT exercise DULCE BENNETT MD Feb 26, 2019 15:00
[2019-02-26 16:01] VITALS: BP 119/58; PULSE 62; RESP 16
[2019-02-26 19:30] VITALS: BP 132/63; PULSE 63; RESP 18
[2019-02-26] MEDS: GABAPENTIN 300 MG CAP PO SCH (21:22)
[2019-02-26] MEDS: DIPHENHYDRAMINE 25 MG CAP PO SCH (21:22)
[2019-02-27 02:50] VITALS: BP 116/54; PULSE 51; RESP 16
[2019-02-27] MEDS: PANTOPRAZOLE (EC) 40 MG TAB PO SCH ×2 (06:14→17:44)
[2019-02-27] MEDS: LEVOTHYROXINE 75 MCG TAB PO SCH (06:14)
[2019-02-27 07:49] VITALS: BP 107/50; PULSE 50; RESP 16
[2019-02-27] MEDS: METOPROLOL 25 MG TAB PO SCH ×2 (09:00→21:43)
[2019-02-27] MEDS: FERROUS SULFATE (EC) 325 MG TAB PO SCH ×3 (09:44→21:44)
[2019-02-27] MEDS: DOCUSATE SODIUM 100 MG CAP PO SCH ×2 (09:44→21:43)
[2019-02-27] MEDS: ASPIRIN (EC) 81 MG TAB PO SCH (09:44)
[2019-02-27] MEDS: GABAPENTIN 100 MG CAP PO SCH ×3 (09:44→21:43)
[2019-02-27] MEDS: CARBIDOPA/LEVODOPA (25/100) TAB PO SCH ×3 (09:44→21:44)
[2019-02-27] MEDS: CLOPIDOGREL 75 MG TAB PO SCH (09:44)
[2019-02-27] MEDS: MUPIROCIN 2% 22 GM OINT TOP SCH ×2 (09:48→21:44)
[2019-02-27 13:40] VITALS: BP 111/56; PULSE 52; RESP 16
[2019-02-27 20:29] VITALS: BP 111/56; PULSE 61; RESP 15
[2019-02-27] MEDS: DIPHENHYDRAMINE 25 MG CAP PO SCH (21:43)
[2019-02-27] MEDS: GABAPENTIN 300 MG CAP PO SCH (21:43)
--- NOTE | 2019-02-27 22:34 | PN ---
Date/Time of Note Date/Time of Note DATE: 02/27/19 TIME: 22:28 Subjective today more tired, could not walk much Objective Vitals Vital Signs Date Temp Pulse Resp B/P (MAP) Pulse Ox O2 O2 Flow FiO2 Time Delivery Rate 02/27/19 98.8 61 15 111/56 96 20:29 (74) 02/27/19 Room Air 02:50 Intake and Output 02/26/19 02/26/19 02/27/19 1515:00 23:00 07:00 IntakeIntake Total 800 ml 440 ml OutputOutput Total 200 ml BalanceBalance 800 ml 240 ml a&o x3, bronch wheez+, rr syst m+, rt>lf leg edema+ Results Result Diagram: 02/27/1942902/27/19429 Medications Medications Current Medications Pantoprazole (Protonix Tab) 40 mg BID@06,18 PO Last administered on 02/27/19 17:44; Admin Dose 40 MG; Start 02/03/19 at 18:00 Gabapentin (Neurontin) 300 mg HS PO Last administered on 02/27/19 21:43; Admin Dose 300 MG; Start 02/03/19 at 21:00 Carbidopa/Levodopa (Sinemet (25/ 100)) 1 tab TID PO Last administered on 02/27/19 21:44; Admin Dose 1 TAB; Start 02/03/19 at 21:00 Ferrous Sulfate (Ferrous Sulfate (Ec)) 325 mg TID PO Last administered on 02/27/19 21:44; Admin Dose 325 MG; Start 02/03/19 at 21:00 Mupirocin (Bactroban) 1 applic BID TOP Last administered on 02/27/19 21:44; Admin Dose 1 APPLIC; Start 02/03/19 at 21:00 Aspirin (Halfprin) 81 mg DAILY PO Last administered on 02/27/19 09:44; Admin Dose 81 MG; Start 02/05/19 at 09:00 Clopidogrel Bisulfate (plaVIX) 75 mg DAILY PO Last administered on 02/27/19 09:44; Admin Dose 75 MG; Start 02/04/19 at 14:30 Tramadol HCl (Ultram) 50 mg Q6H PRN PO MODERATE PAIN LEVEL 4-6 Last administered on 02/16/19 09:32; Admin Dose 50 MG; Start 02/07/19 at 16:30 Docusate Sodium (Colace) 100 mg BID PO Last administered on 02/27/19 21:43; Admin Dose 100 MG; Start 02/07/19 at 18:00 Acetaminophen (Tylenol Tab) 650 mg Q6H PRN PO MILD PAIN(1-3)OR ELEVATED TEMP Last administered on 02/10/19 11:12; Admin Dose 650 MG; Start 02/07/19 at 22:00 Sodium Biphosphate/ Sodium Phosphate (Fleet Enema) 133 ml DAILY PRN [place] CONSTIPATION Last administered on 02/12/19 13:07; Admin Dose 133 ML; Start 02/08/19 at 13:30 Diphenhydramine HCl (Benadryl) 25 mg HS PO Last administered on 02/27/19 21:43; Admin Dose 25 MG; Start 02/09/19 at 21:00 Gabapentin (Neurontin) 100 mg TID PO Last administered on 02/27/19 21:43; Admin Dose 100 MG; Start 02/09/19 at 21:00 Levothyroxine Sodium (Synthroid) 75 mcg DAILY@06 PO Last administered on 02/27/19 06:14; Admin Dose 75 MCG; Start 02/22/19 at 06:00 Metoprolol Tartrate (Lopressor) 25 mg BID PO Last administered on 02/27/19 21:43; Admin Dose 25 MG; Start 02/25/19 at 21:00 VTE Prophylaxis Risk score (from Ns)>0 risk: 5 SCD applied (from Ns): Yes Pharmacological prophylaxis: apixaban, other (asa) Lines/Catheters IV Catheter Type: Saline Lock Central line still needed: No Zepeda in Place: No Assessment/Plan Assessment/Plan 1. arf poss due to low bp 2. pvd/ s/p rt fem-pop #24--almost healed rt ankle area stasis ulcer 3. low bp 4. anemia 5. parkinson's/ age related mobility ds/ musc weak--very slow recovery 6. hypo-thyroid 7. anxiety-depression ---renal consult ---per vasc surg ---dec metoprolol dose ---renal u/s ---when arf resolve, will transfer pt to snf rehab prog DULCE BENNETT MD Feb 27, 2019 22:34
[2019-02-28 02:06] VITALS: BP 107/53; PULSE 60; RESP 16
[2019-02-28] MEDS: PANTOPRAZOLE (EC) 40 MG TAB PO SCH ×2 (05:18→17:32)
[2019-02-28] MEDS: LEVOTHYROXINE 75 MCG TAB PO SCH (05:18)
[2019-02-28 08:09] VITALS: BP 120/58; PULSE 51; RESP 16
[2019-02-28] MEDS: METOPROLOL 25 MG TAB PO SCH ×2 (09:00→20:47)
[2019-02-28] MEDS: ASPIRIN (EC) 81 MG TAB PO SCH (09:05)
[2019-02-28] MEDS: FERROUS SULFATE (EC) 325 MG TAB PO SCH ×3 (09:06→20:46)
[2019-02-28] MEDS: DOCUSATE SODIUM 100 MG CAP PO SCH ×2 (09:06→20:46)
[2019-02-28] MEDS: CLOPIDOGREL 75 MG TAB PO SCH (09:06)
[2019-02-28] MEDS: CARBIDOPA/LEVODOPA (25/100) TAB PO SCH ×3 (09:06→20:46)
[2019-02-28] MEDS: MUPIROCIN 2% 22 GM OINT TOP SCH ×2 (09:06→20:47)
[2019-02-28] MEDS: GABAPENTIN 100 MG CAP PO SCH ×3 (09:06→20:46)
[2019-02-28] MEDS ORDERED: traMADol 50 MG TAB PO PRN (10:00)
--- NOTE | 2019-02-28 10:16 | PN ---
Date/Time of Note Date/Time of Note DATE: 02/28/19 TIME: 10:07 Subjective trying but still feels weak Objective Vitals Vital Signs Date Temp Pulse Resp B/P (MAP) Pulse Ox O2 O2 Flow FiO2 Time Delivery Rate 02/28/19 98.0 51 16 120/58 99 08:09 (78) 02/27/19 Room Air 02:50 Intake and Output 02/27/19 02/27/19 02/28/19 1515:00 23:00 07:00 IntakeIntake Total 1040 ml 520 ml 480 ml BalanceBalance 1040 ml 520 ml 480 ml a&o x3, rr syst m+, cta, rt>lf leg edema +1, warm, no open ulcer anymore Results Result Diagram: 02/27/19 04302/28/19 0440 Medications Medications Current Medications Pantoprazole (Protonix Tab) 40 mg BID@06,18 PO Last administered on 02/28/19 05:18; Admin Dose 40 MG; Start 02/03/19 at 18:00 Gabapentin (Neurontin) 300 mg HS PO Last administered on 02/27/19 21:43; Admin Dose 300 MG; Start 02/03/19 at 21:00 Carbidopa/Levodopa (Sinemet (25/ 100)) 1 tab TID PO Last administered on 02/28/19 09:06; Admin Dose 1 TAB; Start 02/03/19 at 21:00 Ferrous Sulfate (Ferrous Sulfate (Ec)) 325 mg TID PO Last administered on 02/28/19 09:06; Admin Dose 325 MG; Start 02/03/19 at 21:00 Mupirocin (Bactroban) 1 applic BID TOP Last administered on 02/28/19 09:06; Admin Dose 1 APPLIC; Start 02/03/19 at 21:00 Aspirin (Halfprin) 81 mg DAILY PO Last administered on 02/28/19 09:05; Admin Dose 81 MG; Start 02/05/19 at 09:00 Clopidogrel Bisulfate (plaVIX) 75 mg DAILY PO Last administered on 02/28/19 09:06; Admin Dose 75 MG; Start 02/04/19 at 14:30 Tramadol HCl (Ultram) 50 mg Q6H PRN PO MODERATE PAIN LEVEL 4-6 Last administered on 02/16/19 09:32; Admin Dose 50 MG; Start 02/07/19 at 16:30 Docusate Sodium (Colace) 100 mg BID PO Last administered on 02/28/19 09:06; Admin Dose 100 MG; Start 02/07/19 at 18:00 Acetaminophen (Tylenol Tab) 650 mg Q6H PRN PO MILD PAIN(1-3)OR ELEVATED TEMP Last administered on 02/10/19at 11:12; Admin Dose 650 MG; Start 02/07/19 at 22:00 Sodium Biphosphate/ Sodium Phosphate (Fleet Enema) 133 ml DAILY PRN [place] CONSTIPATION Last administered on 02/12/19 13:07; Admin Dose 133 ML; Start 02/08/19 at 13:30 Diphenhydramine HCl (Benadryl) 25 mg HS PO Last administered on 02/27/19at 21:43; Admin Dose 25 MG; Start 02/09/19 at 21:00 Gabapentin (Neurontin) 100 mg TID PO Last administered on 02/28/19 09:06; Admin Dose 100 MG; Start 02/09/19 at 21:00 Levothyroxine Sodium (Synthroid) 75 mcg DAILY@06 PO Last administered on 9at 05:18; Admin Dose 75 MCG; Start 02/22/19 at 06:00 Metoprolol Tartrate (Lopressor) 12.5 mg BID PO ; Start 02/28/19 at 09:00 VTE Prophylaxis Risk score (from Nsg)>0 risk: 5 SCD applied (from Ns): Yes Pharmacological prophylaxis: apixaban, other (asa) Lines/Catheters IV Catheter Type: Saline Lock Central line still needed: No Zepeda in Place: No Assessment/Plan Assessment/Plan 1. ARF--with bp low 2. pvd/ s/p rt fem-pop revision #25--slow recovery but stand/ walk with assistants more 3. age related mobility ds/ Parkinson's/ musc weak 4. low BP, fluid load imbalance--better today with bp med dec 5. hypo-thyroid 6. RLD 7. anxiety--depression ---renal consult, pt needs to be resolved of current ARF prior future ARU transfer ---per vasc surg ---dec ultram ---as pt became more alert & oriented, can follow full instruction & trying to do near 75% of current PT exercises, pt may be a good candidate to receive benefit from Acute Rehab program. will re-approach pt's insurance for ARU transfer & admit DULCE BENNETT MD Feb 28, 2019 10:16
--- NOTE | 2019-02-28 13:06 | CONS ---
Assessment/Plan Assessment/Plan Assessment/Plan Renal consult dictated 1. ARF sec to transient hypotension and contributing mild vol contraction, will follow Consultation Date/Type/Reason Admit Date/Time Feb 03, 2019 at 06:14 Type of Consult Nephrology Date/Time of Note DATE: 02/28/19 TIME: 13:05 Past Medical History Home Meds Active Scripts Clopidogrel Bisulfate (Clopidogrel) 75 Mg Tablet, 75 MG PO DAILY for 30 Days, TAB Prov:DULCE BENNETT MD 02/11/18 Reported Medications Aspirin* (Aspirin* EC) 81 Mg Tablet.dr, 81 MG PO DAILY, TAB 02/03/19 Pantoprazole* (Pantoprazole*) 40 Mg Tablet.dr, 1 TAB ORAL DAILY 02/03/19 Benazepril Hcl* (Benazepril Hcl*) 40 Mg Tablet, 40 MG PO DAILY, #30 TAB 02/03/19 Levothyroxine Sodium* (Levothyroxine Sodium*) 50 Mcg Tablet, 1 TAB ORAL QAM 02/03/19 Gabapentin* (Gabapentin*) 100 Mg Capsule, 100 MG PO QAM, #90 CAP 02/03/19 Furosemide* (Furosemide*) 20 Mg Tablet, 20 MG PO DAILY, #60 TAB 02/03/19 Gabapentin* (Gabapentin*) 100 Mg Capsule, 3 CAP ORAL QHS 01/11/19 Carbidopa/Levodopa (Carbidopa-Levodopa 25-100 Tab) 1 Each Tablet, 1 EACH PO TID, TAB 02/09/18 Ferrous Sulfate* (Ferrous Sulfate*) 325 Mg Tabec, 325 MG PO DAILY, TAB 02/09/18 Medications Current Medications Pantoprazole (Protonix Tab) 40 mg BID@06,18 PO Last administered on 02/28/19at 05:18; Admin Dose 40 MG; Start 02/03/19 at 18:00 Gabapentin (Neurontin) 300 mg HS PO Last administered on 02/27/19at 21:43; Admin Dose 300 MG; Start 02/03/19 at 21:00 Carbidopa/Levodopa (Sinemet (25/ 100)) 1 tab TID PO Last administered on 02/28/19at 09:06; Admin Dose 1 TAB; Start 02/03/19 at 21:00 Ferrous Sulfate (Ferrous Sulfate (Ec)) 325 mg TID PO Last administered on 02/28/19at 09:06; Admin Dose 325 MG; Start 02/03/19 at 21:00 Mupirocin (Bactroban) 1 applic BID TOP Last administered on 02/28/19 09:06; Admin Dose 1 APPLIC; Start 02/03/19 at 21:00 Aspirin (Halfprin) 81 mg DAILY PO Last administered on 02/28/19 09:05; Admin Dose 81 MG; Start 02/05/19 at 09:00 Clopidogrel Bisulfate (plaVIX) 75 mg DAILY PO Last administered on 02/28/19 09:06; Admin Dose 75 MG; Start 02/04/19 at 14:30 Docusate Sodium (Colace) 100 mg BID PO Last administered on 02/28/19 09:06; Admin Dose 100 MG; Start 02/07/19 at 18:00 Acetaminophen (Tylenol Tab) 650 mg Q6H PRN PO MILD PAIN(1-3)OR ELEVATED TEMP Last administered on 02/10/19 11:12; Admin Dose 650 MG; Start 02/07/19 at 22:00 Sodium Biphosphate/ Sodium Phosphate (Fleet Enema) 133 ml DAILY PRN [place] CONSTIPATION Last administered on 02/12/19 13:07; Admin Dose 133 ML; Start 02/08/19 at 13:30 Diphenhydramine HCl (Benadryl) 25 mg HS PO Last administered on 02/27/19 21:43; Admin Dose 25 MG; Start 02/09/19 at 21:00 Gabapentin (Neurontin) 100 mg TID PO Last administered on 02/28/19 09:06; Admin Dose 100 MG; Start 02/09/19 at 21:00 Levothyroxine Sodium (Synthroid) 75 mcg DAILY@06 PO Last administered on 02/28/19 05:18; Admin Dose 75 MCG; Start 02/22/19 at 06:00 Metoprolol Tartrate (Lopressor) 12.5 mg BID PO ; Start 02/28/19 at 09:00 Tramadol HCl (Ultram) 50 mg BID PRN PO MODERATE PAIN LEVEL 4-6; Start 02/28/19 at 10:00 Allergies: Coded Allergies: No Known Allergy (Unverified , 02/03/19) Past Surgical History Past Surgical Hx: endoscopy Social History Smoking Status: Never smoker Exam/Review of Systems Vital Signs Vitals Vital Signs Date Temp Pulse Resp B/P (MAP) Pulse Ox O2 O2 Flow FiO2 Time Delivery Rate 02/28/19 98.0 51 16 120/58 99 08:09 (78) 02/27/19 Room Air 02:50 Intake and Output 02/27/19 02/27/19 02/28/19 1515:00 23:00 07:00 IntakeIntake Total 1040 ml 520 ml 480 ml BalanceBalance 1040 ml 520 ml 480 ml Labs Result Diagram: 02/27/19 0430 02/28/19 0440 Results 24hrs Laboratory Tests Test 02/28/19 01:44 02/28/19 04:40 Urine Color YELLOW Urine Clarity TURBID A Urine pH 5.0 Urine Specific Thomson 1.009 Urine Ketones NEGATIVE Urine Nitrite POSITIVE A Urine Bilirubin NEGATIVE Urine Urobilinogen NEGATIVE Urine Leukocyte Esterase 3+ H Urine Microscopic RBC 4 Urine Microscopic WBC > 182 H Urine Bacteria MODERATE Urine Hemoglobin 1+ H Urine Random Sodium 19 L Urine Random Potassium 41.8 Urine Glucose NEGATIVE Urine Total Protein 16.0 H Sodium Level 134 L Potassium Level 4.4 Chloride Level 99 Carbon Dioxide Level 27 Anion Gap 8 Blood Urea Nitrogen 97 H Creatinine 1.85 H Est Glomerular Filtrat Rate mL/min Glucose Level 102 Calcium Level 9.3 Phosphorus Level 4.9 Magnesium Level 2.4 Medications Medications Current Medications Pantoprazole (Protonix Tab) 40 mg BID@06,18 PO Last administered on 02/28/19 05:18; Admin Dose 40 MG; Start 02/03/19 at 18:00 Gabapentin (Neurontin) 300 mg HS PO Last administered on 02/27/19 21:43; Admin Dose 300 MG; Start 02/03/19 at 21:00 Carbidopa/Levodopa (Sinemet (25/ 100)) 1 tab TID PO Last administered on 02/28/19 09:06; Admin Dose 1 TAB; Start 02/03/19 at 21:00 Ferrous Sulfate (Ferrous Sulfate (Ec)) 325 mg TID PO Last administered on 02/16 09:06; Admin Dose 325 MG; Start 02/03/19 at 21:00 Mupirocin (Bactroban) 1 applic BID TOP Last administered on 02/28/19 09:06; Admin Dose 1 APPLIC; Start 02/03/19 at 21:00 Aspirin (Halfprin) 81 mg DAILY PO Last administered on 02/28/19 09:05; Admin Dose 81 MG; Start 02/05/19 at 09:00 Clopidogrel Bisulfate (plaVIX) 75 mg DAILY PO Last administered on 02/28/19 09:06; Admin Dose 75 MG; Start 02/04/19 at 14:30 Docusate Sodium (Colace) 100 mg BID PO Last administered on 02/28/19 09:06; Admin Dose 100 MG; Start 02/07/19 at 18:00 Acetaminophen (Tylenol Tab) 650 mg Q6H PRN PO MILD PAIN(1-3)OR ELEVATED TEMP Last administered on 02/10/19 11:12; Admin Dose 650 MG; Start 02/07/19 at 22:00 Sodium Biphosphate/ Sodium Phosphate (Fleet Enema) 133 ml DAILY PRN [place] CONSTIPATION Last administered on 02/12/19 13:07; Admin Dose 133 ML; Start 02/08/19 at 13:30 Diphenhydramine HCl (Benadryl) 25 mg HS PO Last administered on 02/27/19 21:43; Admin Dose 25 MG; Start 02/09/19 at 21:00 Gabapentin (Neurontin) 100 mg TID PO Last administered on 02/28/19 09:06; Admin Dose 100 MG; Start 02/09/19 at 21:00 Levothyroxine Sodium (Synthroid) 75 mcg DAILY@06 PO Last administered on 02/28/19 05:18; Admin Dose 75 MCG; Start 02/22/19 at 06:00 Metoprolol Tartrate (Lopressor) 12.5 mg BID PO ; Start 02/28/19 at 09:00 Tramadol HCl (Ultram) 50 mg BID PRN PO MODERATE PAIN LEVEL 4-6; Start 02/28/19 at 10:00 DEVEN LOU MD Feb 28, 2019 13:06
[2019-02-28] MEDS ORDERED: SOD CHLORIDE 0.9% 1,000 ML IV SCH (13:30)
[2019-02-28 14:13] VITALS: BP 114/57; PULSE 58; RESP 16
--- NOTE | 2019-02-28 17:43 | CONS ---
DATE OF ADMISSION: 02/03/2019 DATE OF CONSULTATION: 02/28/[address] Fanny Riley: Thank you very much for allowing me to evaluate this 83-year-old female admitted to the hospital with an ulcer involving the right ankle, who has now developed impaired renal function. HISTORICAL EVENTS: As you well know, this patient was admitted with evidence of a poorly healing rig ht ankle ulcer and underwent a right fem-pop on 02/03/2019. With respect to her renal function, her creatinine was 1.3 on 01/31/2019 with a subsequent rise in her creatinine to 1.12 on 02/13/2019, 1.23 on 02/22/2019, 1.84 on 02/26/2019, having remained just about the same on 02/27/2019 and 02/28/2019, 1.86 and 1.85 respectively. A close review of the chart revealed transient hypotension with systolic blood pressures of 85 to 88 on 02/25/2019. Well known is her history of hypertension, breast cance r, Parkinson disease, hiatal hernia and degenerative joint disease. She is comfortable without cough , wheezing, shortness of breath, nausea, vomiting, abdominal or chest pain. She has had no diarrhea. FAMILY HISTORY: Outlined by you. PRESENT MEDICATIONS: 1. Aspirin. 2. Plavix. 3. Colace. 4. Iron. 5. Metoprolol. 6. Levothyroxine. 7. Tramadol. PHYSICAL EXAMINATION: GENERAL: [place] comfortable appearing female. VITAL SIGNS: BP 131/63, O2 sat 93%, pulse was 66 and regular, respirations were 20. EYES: Extraocular muscles were full. NOSE, MOUTH, AND THROAT: Normal. NECK: Supple without jugular venous distention, thyroid enlargement or adenopathy. LUNGS: Clear. HEART: Rhythm regular, no murmur. No third or fourth sound. ABDOMEN: Nontender. An umbilical hernia, nontender, WAS present. No organomegaly or masses appreci ated. EXTREMITIES: Reduced pulses. No edema and no thigh or flank edema. LABORATORY AND DIAGNOSTIC STUDIES: Her serum creatinines were well outlined above. Of note, urinaly sis revealed 3+ leukocyte esterase, 4 red cells, and many white cells per high power field noted toRamses ordered a urine culture random urine sodium was 19, urine protein was 16. Renal ultrasound tod ay revealed no evidence of hydronephrosis. The bladder wall was thickened. Electrolytes were normal today. CBC: Hematocrit 34.1 on 02/27/2019, 34.5 on 02/26/2019, white count was normal. Chest x-ra y on admission was unrevealing. IMPRESSION AND PLAN: Acute renal failure, I think related to transient hypotension with perhaps subc linical volume contraction contributing, given slightly low urinary sodium and at this point recommen ded slow volume expansion with isotonic saline, but we will be certain there is no bladder dysfunctio n with obtaining a postvoid bladder ultrasound. Urine culture has been ordered, and we will follow w ith you. Dictated By: DEVEN LOU MD MR/NTS Conf#: [id number] DID#: [id number] CC: FANNY RILEY MD; ALLY DAY MD;*End*
[2019-02-28 19:24] VITALS: BP 110/55; PULSE 63; RESP 18
[2019-02-28] MEDS: DIPHENHYDRAMINE 25 MG CAP PO SCH (20:46)
[2019-02-28] MEDS: GABAPENTIN 300 MG CAP PO SCH (20:46)
[2019-03-01 02:20] VITALS: BP 115/56; PULSE 57; RESP 20
[2019-03-01] MEDS: PANTOPRAZOLE (EC) 40 MG TAB PO SCH ×2 (05:35→17:36)
[2019-03-01] MEDS: LEVOTHYROXINE 75 MCG TAB PO SCH (05:35)
[2019-03-01 07:44] VITALS: BP 143/61; PULSE 52; RESP 16
--- NOTE | 2019-03-01 08:42 | CONS ---
Assessment/Plan Assessment/Plan Assessment/Plan (Daily) 1. Acute renal failure has resolved which was sec to transient hypotension, will gladly see on request. 2. Parkinsonism 3. Peripheral vasc dz Consultation Date/Type/Reason Admit Date/Time Feb 03, 2019 at 06:14 Initial Consult Date Date/Time of Note DATE: 03/01/19 TIME: 08:41 Detailed Summary Respiratory: No cough, No shortness of breath Cardiovascular: No chest pain Gastrointestinal: no complaints Neurologic: other (a bit tremulous); No headache Exam/Review of Systems Exam Vitals Vital Signs Date Temp Pulse Resp B/P (MAP) Pulse Ox O2 O2 Flow FiO2 Time Delivery Rate 03/01/19 97.5 52 16 143/61 99 Room Air 07:44 (88) Intake and Output 02/28/19 02/28/19 03/01/19 1515:00 23:00 07:00 IntakeIntake Total 860 ml 630 ml 550 ml OutputOutput Total 700 ml 500 ml BalanceBalance 160 ml 130 ml 550 ml Neck: No jvd Respiratory: clear to auscultation Cardiovascular: regular rate and rhythm Gastrointestinal: soft Extremities: No edema, No tenderness Results Result Diagram: 03/01/19 0530 03/01/19 0530 Results 24hrs Laboratory Tests Test 03/01/19 05:30 White Blood Count 6.9 # Red Blood Count 3.41 L Hemoglobin 9.0 L Hematocrit 29.8 L Mean Corpuscular Volume 87.4 Mean Corpuscular Hemoglobin 26.4 L Mean Corpuscular Hemoglobin Concent 30.2 L Red Cell Distribution Width 18.2 H Platelet Count 341 # Mean Platelet Volume 9.7 Immature Granulocytes % 0.600 H Neutrophils % 56.2 Lymphocytes % 21.1 Monocytes % 10.5 Eosinophils % 10.3 H Basophils % 1.3 Nucleated Red Blood Cells % 0.0 Immature Granulocytes # 0.040 H Neutrophils # 3.9 Lymphocytes # 1.5 Monocytes # 0.7 Eosinophils # 0.7 H Basophils # 0.1 Nucleated Red Blood Cells # 0.0 Sodium Level 140 Potassium Level 3.7 Chloride Level 108 Carbon Dioxide Level 26 Anion Gap 6 Blood Urea Nitrogen 70 H Creatinine 1.11 H Est Glomerular Filtrat Rate mL/min Glucose Level 93 Calcium Level 8.6 Phosphorus Level 3.9 Magnesium Level 2.4 Medications Medication Current Medications Pantoprazole (Protonix Tab) 40 mg BID@06,18 PO Last administered on 03/01/19 05:35; Admin Dose 40 MG; Start 02/03/19 at 18:00 Gabapentin (Neurontin) 300 mg HS PO Last administered on 02/28/19 20:46; Admin Dose 300 MG; Start 02/03/19 at 21:00 Carbidopa/Levodopa (Sinemet (25/ 100)) 1 tab TID PO Last administered on 02/28/19 20:46; Admin Dose 1 TAB; Start 02/03/19 at 21:00 Ferrous Sulfate (Ferrous Sulfate (Ec)) 325 mg TID PO Last administered on 02/28/19 20:46; Admin Dose 325 MG; Start 02/03/19 at 21:00 Mupirocin (Bactroban) 1 applic BID TOP Last administered on 02/28/19 20:47; Admin Dose 1 APPLIC; Start 02/03/19 at 21:00 Aspirin (Halfprin) 81 mg DAILY PO Last administered on 02/28/19 09:05; Admin Dose 81 MG; Start 02/05/19 at 09:00 Clopidogrel Bisulfate (plaVIX) 75 mg DAILY PO Last administered on 02/28/19 09:06; Admin Dose 75 MG; Start 02/04/19 at 14:30 Docusate Sodium (Colace) 100 mg BID PO Last administered on 02/28/19 20:46; Admin Dose 100 MG; Start 02/07/19 at 18:00 Acetaminophen (Tylenol Tab) 650 mg Q6H PRN PO MILD PAIN(1-3)OR ELEVATED TEMP Last administered on 02/10/19 11:12; Admin Dose 650 MG; Start 02/07/19 at 22:00 Sodium Biphosphate/ Sodium Phosphate (Fleet Enema) 133 ml DAILY PRN [place] CONSTIPATION Last administered on 02/12/19 13:07; Admin Dose 133 ML; Start 02/08/19 at 13:30 Diphenhydramine HCl (Benadryl) 25 mg HS PO Last administered on 02/28/19 20:46; Admin Dose 25 MG; Start 02/09/19 at 21:00 Gabapentin (Neurontin) 100 mg TID PO Last administered on 02/28/19 20:46; Admin Dose 100 MG; Start 02/09/19 at 21:00 Levothyroxine Sodium (Synthroid) 75 mcg DAILY@06 PO Last administered on at 05:35; Admin Dose 75 MCG; Start 02/22/19 at 06:00 Metoprolol Tartrate (Lopressor) 12.5 mg BID PO ; Start 02/28/19 at 09:00 Tramadol HCl (Ultram) 50 mg BID PRN PO MODERATE PAIN LEVEL 4-6; Start 02/28/19 at 10:00 Sodium Chloride 1,000 ml @ 50 mls/hr Q20H IV Last administered on 02/28/19at 14:15; Admin Dose 50 MLS/HR; Start 02/28/19 at 13:30 DEVEN LOU MD Mar 01, 2019 08:42
[2019-03-01] MEDS: MUPIROCIN 2% 22 GM OINT TOP SCH ×3 (09:00→21:00)
[2019-03-01] MEDS: METOPROLOL 25 MG TAB PO SCH ×2 (09:00→21:03)
[2019-03-01] MEDS: DOCUSATE SODIUM 100 MG CAP PO SCH ×2 (09:02→21:03)
[2019-03-01] MEDS: CLOPIDOGREL 75 MG TAB PO SCH (09:02)
[2019-03-01] MEDS: CARBIDOPA/LEVODOPA (25/100) TAB PO SCH ×3 (09:02→18:41)
[2019-03-01] MEDS: GABAPENTIN 100 MG CAP PO SCH ×3 (09:02→21:01)
[2019-03-01] MEDS: ASPIRIN (EC) 81 MG TAB PO SCH (09:02)
[2019-03-01] MEDS: FERROUS SULFATE (EC) 325 MG TAB PO SCH ×3 (09:02→21:03)
[2019-03-01 14:29] VITALS: BP 111/56; PULSE 63; RESP 15
[2019-03-01 19:32] VITALS: BP 135/67; PULSE 67; RESP 17
[2019-03-01] MEDS: GABAPENTIN 300 MG CAP PO SCH (21:03)
[2019-03-01] MEDS: DIPHENHYDRAMINE 25 MG CAP PO SCH (21:03)
[2019-03-02 02:19] VITALS: BP 120/60; PULSE 62; RESP 16
[2019-03-02] MEDS: LEVOTHYROXINE 75 MCG TAB PO SCH (05:50)
[2019-03-02] MEDS: PANTOPRAZOLE (EC) 40 MG TAB PO SCH (05:50)
[2019-03-02] MEDS ORDERED: CARBIDOPA/LEVODOPA (25/100) TAB PO SCH (08:00)
[2019-03-02 08:19] VITALS: BP 135/65; PULSE 59; RESP 15
[2019-03-02] MEDS: METOPROLOL 25 MG TAB PO SCH (09:00)
[2019-03-02] MEDS: ASPIRIN (EC) 81 MG TAB PO SCH (09:17)
[2019-03-02] MEDS: GABAPENTIN 100 MG CAP PO SCH ×2 (09:17→12:53)
[2019-03-02] MEDS: DOCUSATE SODIUM 100 MG CAP PO SCH (09:17)
[2019-03-02] MEDS: CLOPIDOGREL 75 MG TAB PO SCH (09:17)
[2019-03-02] MEDS: CARBIDOPA/LEVODOPA (25/100) TAB PO SCH ×2 (09:17→12:53)
[2019-03-02] MEDS: FERROUS SULFATE (EC) 325 MG TAB PO SCH ×2 (09:17→12:53)
[2019-03-02] MEDS: MUPIROCIN 2% 22 GM OINT TOP SCH (09:21)
--- NOTE | 2019-03-02 11:36 | PN ---
Date/Time of Note Date/Time of Note DATE: 03/02/19 TIME: 11:36 Subjective walked further Objective Vitals Vital Signs Date Temp Pulse Resp B/P (MAP) Pulse Ox O2 O2 Flow FiO2 Time Delivery Rate 03/02/19 98.5 59 15 135/65 96 Room Air 08: (88) Intake and Output 03/01/19 03/01/19 03/02/19 1515:00 23:00 07:00 IntakeIntake Total 700 ml 240 ml BalanceBalance 700 ml 240 ml a&o x3, cta, rr syst m+, rt leg warm, no open ulcer, stasis edema+1 Results Result Diagram: 03/01/1952903/01/19 05 Medications Medications Current Medications Pantoprazole (Protonix Tab) 40 mg BID@06,18 PO Last administered on 03/02/19 05:50; Admin Dose 40 MG; Start 02/03/19 at 18:00 Gabapentin (Neurontin) 300 mg HS PO Last administered on 03/01/19 21:03; Admin Dose 300 MG; Start 02/03/19 at 21:00 Ferrous Sulfate (Ferrous Sulfate (Ec)) 325 mg TID PO Last administered on 03/02/19 09:17; Admin Dose 325 MG; Start 02/03/19 at 21:00 Mupirocin (Bactroban) 1 applic BID TOP Last administered on 03/02/19 09:21; Admin Dose 1 APPLIC; Start 02/03/19 at 21:00 Aspirin (Halfprin) 81 mg DAILY PO Last administered on 03/02/19 09:17; Admin Dose 81 MG; Start 02/05/19 at 09:00 Clopidogrel Bisulfate (plaVIX) 75 mg DAILY PO Last administered on 03/02/19 09:17; Admin Dose 75 MG; Start 02/04/19 at 14:30 Docusate Sodium (Colace) 100 mg BID PO Last administered on 03/02/19 09:17; Admin Dose 100 MG; Start 02/07/19 at 18:00 Acetaminophen (Tylenol Tab) 650 mg Q6H PRN PO MILD PAIN(1-3)OR ELEVATED TEMP L ast administered on 02/10/19at 11:12; Admin Dose 650 MG; Start 02/07/19 at 22:00 Sodium Biphosphate/ Sodium Phosphate (Fleet Enema) 133 ml DAILY PRN [place] CONSTIPATION Last administered on 02/12/19 13:07; Admin Dose 133 ML; Start 02/08/19 at 13:30 Diphenhydramine HCl (Benadryl) 25 mg HS PO Last administered on 03/01/19 21:03; Admin Dose 25 MG; Start 02/09/19 at 21:00 Gabapentin (Neurontin) 100 mg TID PO Last administered on 03/02/19 09:17; Admin Dose 100 MG; Start 02/09/19 at 21:00 Levothyroxine Sodium (Synthroid) 75 mcg DAILY@06 PO Last administered on 03/02/19 05:50; Admin Dose 75 MCG; Start 02/22/19 at 06:00 Metoprolol Tartrate (Lopressor) 12.5 mg BID PO Last administered on 03/01/19 21:03; Admin Dose 12.5 MG; Start 02/28/19 at 09:00 Tramadol HCl (Ultram) 50 mg BID PRN PO MODERATE PAIN LEVEL 4-6 Last administered on 03/02/19 01:32; Admin Dose 50 MG; Start 02/28/19 at 10:00 Carbidopa/Levodopa (Sinemet (25/ 100)) 1 tab WITH MEALS PO Last administered on 03/02/19 09:17; Admin Dose 1 TAB; Start 03/01/19 at 18:35 VTE Prophylaxis Risk score (from Ns)>0 risk: 5 SCD applied (from Ns): No SCD contraindication: low risk/ambulating Lines/Catheters IV Catheter Type: Saline Lock Central line still needed: No Zepeda in Place: No Assessment/Plan Assessment/Plan 1. uti, pelvic pain, arf 2. anemia 3. rld 4. htn 5. s/p rt fem-pop #27 6. anxiety 7. parkinson's/ debility/ musc weak 8. hypo-thyroid ---per renal ---start macrobid 100mg bid x7ds ---inc daytime fluid ---jono hose ---per vasc surg --ok to transfer to DULCE Zheng MD Mar 02, 2019 11:36
--- NOTE | 2019-03-02 11:36 | PN ---
Date/Time of Note Date/Time of Note DATE: 03/01/19 TIME: 11:35 OB Subjective Subjective Subjective stronger, no leg pain OB Objective Objective Objective rr syst m+, cta, rt leg warm, no open stasis ulcer, +1 pit edema still+ OB Assessment/Plan Other Assessment: 1. pvd, s/p rt fem-pop revision #26 2. htn 3. rld 4. parkinson's 5. anxiety 6. htn, rt cva 7. ckd II Other plan: ---per vasc surg ---per renal ---watch salt ---inc daytime fluid ---cont supportive care ---await [facility] transfer DULCE BENNETT MD Mar 02, 2019 11:36
[2019-03-02] MEDS ORDERED: NITROFURANTOIN (SR) 100 MG CAP PO SCH (12:30)
[2019-03-02 13:32] VITALS: BP 146/61; PULSE 60; RESP 16
--- NOTE | 2019-03-04 00:42 | DS ---
Date/Time of Note Date/Time of Note DATE: 03/04/19 TIME: 00:16 Discharge Summary Admission/Discharge Info Admit Date/Time Feb 03, 2019 at 06:14 Discharge Date/Time Mar 02, 2019 at 18:25 Discharge Diagnosis 1. s/p rt fem-pop revision 2. pvd 3. htn 4. rt cva 5. rld 6. bibi 7. parkinson's 8. hypo-thyroid 9. uti Patient Condition: Fair Consults vasc surg, int med, renal Procedures s/p rt fem-pop revision Hx of Present Illness pt developed rt leg near ankle open cellulitis/ vasculitis/ open stasis ulcer, very slow & difficult to heal, cold/ edmatous/ whalen color worsening, rt leg arterial doppler showing severe vessel obstruction, vasc surg chose to do procedure. after 1wk, pt back to her baseline mentation but very progress with PT exercise. after steady PT exercise care, she became more awake, aware, & start to show activity & po intake calory improvement. while last week in hospital, with sxs of uti, her bun & creat went up, renal was asked to follow pt. as pt stay awake more & further participation w/ PT, after daughter's appeal to her medicare, she was to be transferred to [facility] Course her vasc surg under gen anesthetic was uneventful. on the other hand, she was overly sensitive to pain meds, she promptly showed ams. 1 wk later, pt started to get back to her baseline mentation, PT exercise started. initially, pt's insurance denied her of [facility] transfer. for 2 more wks, pt steadily more active, less pain, no prob of drowsiness, quickly pt could participate beyond 75% of exercises. during 4th bwk, she was found to have gradually worsening kidney function, renal consult was called. ua & urine c&s sowed infection, proper atbx started, pt's slight pelvic pain got better. 2nd inquire for [facility] admission was allowed, she 's to be transferred soon. Home Meds Active Scripts Mupirocin* (Bactroban*) 2% -22 Gram Oint...g., 1 APPLIC TOP BID for 14 Days Prov:DULCE RILEY MD 03/02/19 Na Phos,M-B/Na Phos,Di-Ba (ENEMA) 133 Ml Enema, 133 ML ME DAILY PRN for CONSTIPATION for 14 Days, ENEMA Prov:DULCE RILEY MD 03/02/19 Docusate Sodium* (Colace*) 100 Mg Capsule, 100 MG PO BID for 14 Days, CAP Prov:DULCE RILEY MD 03/02/19 Levothyroxine Sodium* (Levothyroxine Sodium*) 75 Mcg Tablet, 75 MCG PO DAILY@06 for 14 Days, TAB Prov:DULCE RILEY MD 03/02/19 Tramadol HCl (Tramadol HCl) 50 Mg Tablet, 50 MG PO BID PRN for MODERATE PAIN LEV EL 4-6 for 14 Days, TAB Prov:DULCE RILEY MD 03/02/19 Gabapentin* (Gabapentin*) 300 Mg Capsule, 300 MG PO HS for 14 Days, CAP Prov:DULCE RILEY MD 03/02/19 Gabapentin* (Gabapentin*) 100 Mg Capsule, 100 MG PO TID for 14 Days, CAP Prov:DULCE RILEY MD 03/02/19 Acetaminophen* (Tylenol*) 325 Mg Tablet, 650 MG PO Q6H PRN for MILD PAIN(1-3)OR ELEVATED TEMP for 14 Days, TAB Prov:DULCE RILEY MD 03/02/19 Metoprolol Tartrate* (Lopressor*) 25 Mg Tab, 12.5 MG PO BID for 14 Days, TAB Prov:DULCE RILEY MD 03/02/19 Nitrofurantoin Monohyd Macrocr (Macrobid) 100 Mg Capsr, 100 MG PO BID for 7 Days, CAP Prov:DULCE RILEY MD 03/02/19 Diphenhydramine Hcl* (Benadryl*) 25 Mg Cap, 25 MG PO HS for 14 Days, CAP Prov:DULCE RILEY MD 03/02/19 Clopidogrel Bisulfate (Clopidogrel) 75 Mg Tablet, 75 MG PO DAILY for 30 Days, TAB Prov:DULCE RILEY MD 02/11/18 Reported Medications Aspirin* (Aspirin* EC) 81 Mg Tablet.dr, 81 MG PO DAILY, TAB 02/03/19 Pantoprazole* (Pantoprazole*) 40 Mg Tablet.dr, 1 TAB ORAL DAILY 02/03/19 Carbidopa/Levodopa (Carbidopa-Levodopa 25-100 Tab) 1 Each Tablet, 1 EACH PO TID, TAB 02/09/18 Ferrous Sulfate* (Ferrous Sulfate*) 325 Mg Tabec, 325 MG PO DAILY, TAB 02/09/18 Discontinued Reported Medications Benazepril Hcl* (Benazepril Hcl*) 40 Mg Tablet, 40 MG PO DAILY, #30 TAB 02/03/19 Levothyroxine Sodium* (Levothyroxine Sodium*) 50 Mcg Tablet, 1 TAB ORAL QAM 02/03/19 Gabapentin* (Gabapentin*) 100 Mg Capsule, 100 MG PO QAM, #90 CAP 02/03/19 Furosemide* (Furosemide*) 20 Mg Tablet, 20 MG PO DAILY, #60 TAB 02/03/19 Gabapentin* (Gabapentin*) 100 Mg Capsule, 3 CAP ORAL QHS 01/11/19 Follow-up Plan will follow as an int med [facility] adf consultant to care for multi medical condition. Primary Care Provider Dulce Riley MD Time spent on discharge: > 30 minutes DULCE RILEY MD Mar 04, 2019 00:31
== END 2019-03-02 18:25 | DRG 253 ==
LOC: REC 06:14 → ICU 18:28 → 6WM 02-04 18:22 → 2NE 02-20 21:28
PROVIDERS: ADMIT Surgery Vascular Surgery; ATTEND Surgery Vascular Surgery
PROC: 041K09L Bypass Right Femoral Artery to Popliteal Artery with Autologous Venous Tissue, Open Approach (ICD-10-PCS; principal; 2019-02-03 08:00)
PROC: 30233N1 Transfusion of Nonautologous Red Blood Cells into Peripheral Vein, Percutaneous Approach (ICD-10-PCS; 2019-02-04)
DX: E11.51 Type 2 diabetes mellitus with diabetic peripheral angiopathy without gangrene (principal); D62 Acute posthemorrhagic anemia; L97.219 Non-pressure chronic ulcer of right calf with unspecified severity; L03.115 Cellulitis of right lower limb; B69.0 Cysticercosis of central nervous system; N17.9 Acute kidney failure, unspecified; N39.0 Urinary tract infection, site not specified; E11.622 Type 2 diabetes mellitus with other skin ulcer; D63.1 Anemia in chronic kidney disease; E03.9 Hypothyroidism, unspecified; E87.70 Fluid overload, unspecified; E11.42 Type 2 diabetes mellitus with diabetic polyneuropathy; E11.22 Type 2 diabetes mellitus with diabetic chronic kidney disease; F41.9 Anxiety disorder, unspecified; F32.9 Major depressive disorder, single episode, unspecified; F02.80 Dementia in other diseases classified elsewhere, unspecified severity, without behavioral disturbance, psychotic disturbance, mood disturbance, and anxiety; G20 Parkinson's disease; I12.9 Hypertensive chronic kidney disease with stage 1 through stage 4 chronic kidney disease, or unspecified chronic kidney disease; I87.2 Venous insufficiency (chronic) (peripheral); I87.8 Other specified disorders of veins; K21.9 Gastro-esophageal reflux disease without esophagitis; K44.9 Diaphragmatic hernia without obstruction or gangrene; N18.2 Chronic kidney disease, stage 2 (mild); R41.82 Altered mental status, unspecified; R03.1 Nonspecific low blood-pressure reading; R26.9 Unspecified abnormalities of gait and mobility; R54 Age-related physical debility
CPT/HCPCS: 36430; 70470; 71045; 74230; 76775; 80048; 80053; 81001; 81003; 82040; 83540; 83735; 83880; 84100; 84133; 84134; 84300; 84436; 84443; 85014; 85018; 85025; 86850; 86900; 86901; 86920; 87086; 92523; 92526; 92610; 92611; 93880; 93971; 97110; 97116; 97163; 97530; J0690; J1170; J1644; J1940; J2270; J2405; J2765; J7030; J7040; J7042; J7120; P9016; Q9967

== ENCOUNTER 2019-03-02 16:18 | Inpatient (IN) | payer OTHER ==
[~2019-03-02] VITALS: Ht 160 cm; Wt 66.0 kg
[~2019-03-02 16:18] MED LIST changes: -BENA40TA56 ORAL; -CLIN300C10 PO; -LIPA1CAP4 PO
[2019-03-02 18:40] VITALS: BP 134/59; PULSE 66; RESP 18
[2019-03-02 20:12] VITALS: BP 125/62; PULSE 62; RESP 19
[2019-03-02 21:00] VITALS: Ht 160 cm; Wt 66.0 kg
[2019-03-02] MEDS ORDERED: traMADol 50 MG TAB PO PRN (21:00)
[2019-03-02] MEDS ORDERED: NA PHOSPHATE/BIPHOS 133 ML ENEMA PR PRN (21:00)
[2019-03-02] MEDS ORDERED: GABAPENTIN 100 MG CAP PO SCH (21:00)
[2019-03-02] MEDS ORDERED: ACETAMINOPHEN 325 MG TAB PO PRN (21:00)
[2019-03-02] MEDS ORDERED: CARBIDOPA/LEVODOPA (25/100) TAB PO SCH (21:00)
[2019-03-02] MEDS: GABAPENTIN 300 MG CAP PO SCH (22:17)
[2019-03-02] MEDS: DOCUSATE SODIUM 100 MG CAP PO SCH (22:17)
[2019-03-02] MEDS: FERROUS SULFATE (EC) 325 MG TAB PO SCH (22:17)
[2019-03-02] MEDS: DIPHENHYDRAMINE 25 MG CAP PO SCH (22:17)
[2019-03-02] MEDS: NITROFURANTOIN (SR) 100 MG CAP PO SCH (22:18)
[2019-03-02] MEDS: MUPIROCIN 2% 22 GM OINT TOP SCH (22:18)
[2019-03-02] MEDS: METOPROLOL 25 MG TAB PO SCH (22:25)
[2019-03-03 02:38] VITALS: BP 162/78; PULSE 66; RESP 18
[2019-03-03] MEDS: PANTOPRAZOLE (EC) 40 MG TAB PO SCH ×2 (06:41→17:41)
[2019-03-03] MEDS: LEVOTHYROXINE 75 MCG TAB PO SCH (06:42)
[2019-03-03 08:00] VITALS: BP 125/60; PULSE 61; RESP 18
[2019-03-03] MEDS: ASPIRIN (EC) 81 MG TAB PO SCH (08:31)
[2019-03-03] MEDS: CARBIDOPA/LEVODOPA (25/100) TAB PO SCH ×3 (08:31→17:41)
[2019-03-03] MEDS: NITROFURANTOIN (SR) 100 MG CAP PO SCH ×2 (08:31→21:08)
[2019-03-03] MEDS: ASCORBIC ACID 250 MG TAB PO SCH (08:32)
[2019-03-03] MEDS: CLOPIDOGREL 75 MG TAB PO SCH (08:32)
[2019-03-03] MEDS: GABAPENTIN 100 MG CAP PO SCH ×3 (08:32→17:43)
[2019-03-03] MEDS: MULTIVITAMINS THERAPEUTIC TAB PO SCH (08:32)
[2019-03-03] MEDS: FERROUS SULFATE (EC) 325 MG TAB PO SCH ×3 (08:32→21:08)
[2019-03-03] MEDS: MUPIROCIN 2% 22 GM OINT TOP SCH ×2 (08:32→21:11)
[2019-03-03] MEDS: DOCUSATE SODIUM 100 MG CAP PO SCH ×2 (08:40→21:08)
[2019-03-03] MEDS: METOPROLOL 25 MG TAB PO SCH ×3 (09:00→21:00)
[2019-03-03 10:00] VITALS: BP 119/60; PULSE 62; RESP 18
[2019-03-03 13:30] VITALS: BP 139/65; PULSE 65; RESP 18
[2019-03-03 14:00] VITALS: BP 139/65; PULSE 60; RESP 19
[2019-03-03 20:03] VITALS: BP 124/63; PULSE 63; RESP 18
[2019-03-03] MEDS: GABAPENTIN 300 MG CAP PO SCH (21:08)
[2019-03-03] MEDS: DIPHENHYDRAMINE 25 MG CAP PO SCH (21:08)
[2019-03-04 02:00] VITALS: BP 132/60; PULSE 61; RESP 18
[2019-03-04] MEDS: LEVOTHYROXINE 75 MCG TAB PO SCH (06:49)
[2019-03-04] MEDS: PANTOPRAZOLE (EC) 40 MG TAB PO SCH ×2 (06:49→17:37)
[2019-03-04] MEDS: METOPROLOL 25 MG TAB PO SCH ×2 (09:22→20:54)
[2019-03-04] MEDS: NITROFURANTOIN (SR) 100 MG CAP PO SCH ×2 (09:23→20:50)
[2019-03-04] MEDS: MULTIVITAMINS THERAPEUTIC TAB PO SCH (09:23)
[2019-03-04] MEDS: DOCUSATE SODIUM 100 MG CAP PO SCH ×2 (09:23→20:51)
[2019-03-04] MEDS: ASCORBIC ACID 250 MG TAB PO SCH (09:23)
[2019-03-04] MEDS: CLOPIDOGREL 75 MG TAB PO SCH (09:23)
[2019-03-04] MEDS: GABAPENTIN 100 MG CAP PO SCH ×3 (09:23→17:37)
[2019-03-04] MEDS: ASPIRIN (EC) 81 MG TAB PO SCH (09:23)
[2019-03-04] MEDS: FERROUS SULFATE (EC) 325 MG TAB PO SCH ×3 (09:24→20:51)
[2019-03-04] MEDS: CARBIDOPA/LEVODOPA (25/100) TAB PO SCH ×3 (09:24→17:37)
[2019-03-04] MEDS: MUPIROCIN 2% 22 GM OINT TOP SCH ×2 (09:25→20:59)
[2019-03-04 20:24] VITALS: BP 128/64; PULSE 62; RESP 18
[2019-03-04] MEDS: DIPHENHYDRAMINE 25 MG CAP PO SCH (20:51)
[2019-03-04] MEDS: GABAPENTIN 300 MG CAP PO SCH (20:51)
[2019-03-05 02:00] VITALS: BP 123/62; PULSE 64; RESP 18
[2019-03-05] MEDS: PANTOPRAZOLE (EC) 40 MG TAB PO SCH ×2 (06:34→17:51)
[2019-03-05] MEDS: LEVOTHYROXINE 75 MCG TAB PO SCH (06:34)
[2019-03-05 08:00] VITALS: BP 135/65; PULSE 68; RESP 19
[2019-03-05] MEDS: CARBIDOPA/LEVODOPA (25/100) TAB PO SCH ×3 (09:27→17:51)
[2019-03-05] MEDS: NITROFURANTOIN (SR) 100 MG CAP PO SCH ×2 (09:27→21:23)
[2019-03-05] MEDS: ASPIRIN (EC) 81 MG TAB PO SCH (09:28)
[2019-03-05] MEDS: DOCUSATE SODIUM 100 MG CAP PO SCH ×2 (09:28→21:23)
[2019-03-05] MEDS: FERROUS SULFATE (EC) 325 MG TAB PO SCH ×3 (09:28→21:23)
[2019-03-05] MEDS: MULTIVITAMINS THERAPEUTIC TAB PO SCH (09:28)
[2019-03-05] MEDS: GABAPENTIN 100 MG CAP PO SCH ×3 (09:28→17:51)
[2019-03-05] MEDS: METOPROLOL 25 MG TAB PO SCH ×2 (09:28→21:24)
[2019-03-05] MEDS: ASCORBIC ACID 250 MG TAB PO SCH (09:28)
[2019-03-05] MEDS: CLOPIDOGREL 75 MG TAB PO SCH (09:28)
[2019-03-05] MEDS: MUPIROCIN 2% 22 GM OINT TOP SCH ×2 (09:29→21:25)
[2019-03-05 14:30] VITALS: BP 128/63; PULSE 72; RESP 20
[2019-03-05 20:00] VITALS: BP 120/58; PULSE 65; RESP 18
[2019-03-05] MEDS: GABAPENTIN 300 MG CAP PO SCH (21:23)
[2019-03-05] MEDS: DIPHENHYDRAMINE 25 MG CAP PO SCH (21:23)
[2019-03-06 02:22] VITALS: BP 154/68; PULSE 61; RESP 18
[2019-03-06] MEDS: LEVOTHYROXINE 75 MCG TAB PO SCH (06:04)
[2019-03-06] MEDS: PANTOPRAZOLE (EC) 40 MG TAB PO SCH ×2 (06:04→17:31)
[2019-03-06 07:30] VITALS: BP 137/62; PULSE 61; RESP 20
[2019-03-06] MEDS: CARBIDOPA/LEVODOPA (25/100) TAB PO SCH ×3 (07:47→17:31)
[2019-03-06] MEDS: METOPROLOL 25 MG TAB PO SCH ×2 (09:00→22:01)
[2019-03-06] MEDS: NITROFURANTOIN (SR) 100 MG CAP PO SCH ×2 (09:32→21:53)
[2019-03-06] MEDS: FERROUS SULFATE (EC) 325 MG TAB PO SCH ×3 (09:32→21:53)
[2019-03-06] MEDS: ASCORBIC ACID 250 MG TAB PO SCH (09:32)
[2019-03-06] MEDS: CLOPIDOGREL 75 MG TAB PO SCH (09:32)
[2019-03-06] MEDS: ASPIRIN (EC) 81 MG TAB PO SCH (09:32)
[2019-03-06] MEDS: MULTIVITAMINS THERAPEUTIC TAB PO SCH (09:32)
[2019-03-06] MEDS: DOCUSATE SODIUM 100 MG CAP PO SCH ×2 (09:32→21:53)
[2019-03-06] MEDS: MUPIROCIN 2% 22 GM OINT TOP SCH (09:33)
[2019-03-06] MEDS: GABAPENTIN 100 MG CAP PO SCH ×3 (09:38→17:31)
[2019-03-06 14:00] VITALS: BP 138/68; PULSE 65; RESP 20
[2019-03-06 20:00] VITALS: BP 127/58; PULSE 68; RESP 18
[2019-03-06] MEDS: GABAPENTIN 300 MG CAP PO SCH (21:53)
[2019-03-06] MEDS: DIPHENHYDRAMINE 25 MG CAP PO SCH (21:53)
[2019-03-07 01:57] VITALS: BP 135/58; PULSE 60; RESP 18
[2019-03-07] MEDS: LEVOTHYROXINE 75 MCG TAB PO SCH (06:40)
[2019-03-07] MEDS: PANTOPRAZOLE (EC) 40 MG TAB PO SCH ×2 (06:40→17:19)
[2019-03-07] MEDS: CARBIDOPA/LEVODOPA (25/100) TAB PO SCH ×3 (08:50→17:19)
[2019-03-07] MEDS: GABAPENTIN 100 MG CAP PO SCH ×3 (09:01→17:20)
[2019-03-07] MEDS: DOCUSATE SODIUM 100 MG CAP PO SCH ×2 (09:02→20:43)
[2019-03-07] MEDS: ASPIRIN (EC) 81 MG TAB PO SCH (09:03)
[2019-03-07] MEDS: CLOPIDOGREL 75 MG TAB PO SCH (09:03)
[2019-03-07] MEDS: ASCORBIC ACID 250 MG TAB PO SCH (09:05)
[2019-03-07] MEDS: MULTIVITAMINS THERAPEUTIC TAB PO SCH (09:05)
[2019-03-07] MEDS: NITROFURANTOIN (SR) 100 MG CAP PO SCH ×2 (09:07→20:43)
[2019-03-07] MEDS: FERROUS SULFATE (EC) 325 MG TAB PO SCH ×3 (09:07→20:45)
[2019-03-07] MEDS: METOPROLOL 25 MG TAB PO SCH ×2 (09:08→20:46)
[2019-03-07 09:26] VITALS: BP 132/63; PULSE 62; RESP 18
[2019-03-07 14:51] VITALS: BP 123/84; PULSE 63; RESP 18
[2019-03-07 20:00] VITALS: BP 116/55; PULSE 65; RESP 18
[2019-03-07] MEDS: DIPHENHYDRAMINE 25 MG CAP PO SCH (20:43)
[2019-03-07] MEDS: GABAPENTIN 300 MG CAP PO SCH (20:45)
[2019-03-08 02:00] VITALS: BP 129/61; PULSE 54; RESP 18
[2019-03-08] MEDS: LEVOTHYROXINE 75 MCG TAB PO SCH (06:58)
[2019-03-08] MEDS: PANTOPRAZOLE (EC) 40 MG TAB PO SCH ×2 (06:58→17:16)
[2019-03-08 07:00] VITALS: BP_SYST 122; BP_SYST 141; BP_DIAS 69; BP_DIAS 83; PULSE 70; RESP 18
[2019-03-08] MEDS: NITROFURANTOIN (SR) 100 MG CAP PO SCH ×2 (08:49→21:01)
[2019-03-08] MEDS: MULTIVITAMINS THERAPEUTIC TAB PO SCH (08:50)
[2019-03-08] MEDS: CLOPIDOGREL 75 MG TAB PO SCH (08:50)
[2019-03-08] MEDS: FERROUS SULFATE (EC) 325 MG TAB PO SCH ×3 (08:50→21:01)
[2019-03-08] MEDS: DOCUSATE SODIUM 100 MG CAP PO SCH ×2 (08:50→21:00)
[2019-03-08] MEDS: ASPIRIN (EC) 81 MG TAB PO SCH (08:50)
[2019-03-08] MEDS: ASCORBIC ACID 250 MG TAB PO SCH (08:50)
[2019-03-08] MEDS: CARBIDOPA/LEVODOPA (25/100) TAB PO SCH ×3 (08:50→17:16)
[2019-03-08] MEDS: METOPROLOL 25 MG TAB PO SCH ×2 (08:51→21:01)
[2019-03-08] MEDS: GABAPENTIN 100 MG CAP PO SCH ×3 (08:58→17:16)
[2019-03-08 14:00] VITALS: BP 108/59; PULSE 71; RESP 18
[2019-03-08 20:00] VITALS: BP 138/60; PULSE 68; RESP 18
[2019-03-08] MEDS: DIPHENHYDRAMINE 25 MG CAP PO SCH (21:00)
[2019-03-08] MEDS: GABAPENTIN 300 MG CAP PO SCH (21:01)
[2019-03-09 02:00] VITALS: BP 124/65; PULSE 64; RESP 18
[2019-03-09] MEDS: LEVOTHYROXINE 75 MCG TAB PO SCH (06:26)
[2019-03-09] MEDS: PANTOPRAZOLE (EC) 40 MG TAB PO SCH ×2 (06:27→17:28)
[2019-03-09 08:29] VITALS: BP 134/60; PULSE 67; RESP 18
[2019-03-09] MEDS: DOCUSATE SODIUM 100 MG CAP PO SCH ×2 (09:00→21:12)
[2019-03-09] MEDS: CARBIDOPA/LEVODOPA (25/100) TAB PO SCH ×3 (09:01→17:28)
[2019-03-09] MEDS: CLOPIDOGREL 75 MG TAB PO SCH (09:01)
[2019-03-09] MEDS: NITROFURANTOIN (SR) 100 MG CAP PO SCH ×2 (09:01→21:11)
[2019-03-09] MEDS: MULTIVITAMINS THERAPEUTIC TAB PO SCH (09:01)
[2019-03-09] MEDS: FERROUS SULFATE (EC) 325 MG TAB PO SCH ×3 (09:02→21:11)
[2019-03-09] MEDS: ASCORBIC ACID 250 MG TAB PO SCH (09:02)
[2019-03-09] MEDS: METOPROLOL 25 MG TAB PO SCH ×2 (09:02→21:00)
[2019-03-09] MEDS: ASPIRIN (EC) 81 MG TAB PO SCH (09:03)
[2019-03-09] MEDS: GABAPENTIN 100 MG CAP PO SCH ×3 (09:18→17:28)
[2019-03-09] MEDS ORDERED: PANTOPRAZOLE (EC) 40 MG TAB PO ONE (12:30)
[2019-03-09 15:07] VITALS: BP 113/51; PULSE 59; RESP 18
[2019-03-09 20:43] VITALS: BP 124/63; PULSE 65; RESP 18
[2019-03-09] MEDS: DIPHENHYDRAMINE 25 MG CAP PO SCH (21:11)
[2019-03-09] MEDS: GABAPENTIN 300 MG CAP PO SCH (21:12)
[2019-03-10 02:02] VITALS: BP 130/60; PULSE 68; RESP 18
[2019-03-10] MEDS ORDERED: PANTOPRAZOLE (EC) 40 MG TAB PO SCH (06:00)
[2019-03-10] MEDS: PANTOPRAZOLE (EC) 40 MG TAB PO SCH ×2 (06:16→18:55)
[2019-03-10] MEDS: LEVOTHYROXINE 75 MCG TAB PO SCH (06:16)
[2019-03-10 07:00] VITALS: BP 188/55; PULSE 68; RESP 18
[2019-03-10] MEDS: ASPIRIN (EC) 81 MG TAB PO SCH (08:26)
[2019-03-10] MEDS: ASCORBIC ACID 250 MG TAB PO SCH (08:26)
[2019-03-10] MEDS: FERROUS SULFATE (EC) 325 MG TAB PO SCH ×3 (08:26→21:29)
[2019-03-10] MEDS: CARBIDOPA/LEVODOPA (25/100) TAB PO SCH ×3 (08:26→18:55)
[2019-03-10] MEDS: CLOPIDOGREL 75 MG TAB PO SCH (08:26)
[2019-03-10] MEDS: DOCUSATE SODIUM 100 MG CAP PO SCH ×2 (08:27→21:29)
[2019-03-10] MEDS: MULTIVITAMINS THERAPEUTIC TAB PO SCH (08:27)
[2019-03-10] MEDS: GABAPENTIN 100 MG CAP PO SCH ×3 (08:27→18:55)
[2019-03-10] MEDS: NITROFURANTOIN (SR) 100 MG CAP PO SCH (08:34)
[2019-03-10] MEDS: METOPROLOL 25 MG TAB PO SCH ×2 (08:36→21:00)
[2019-03-10 14:00] VITALS: BP 160/88; PULSE 68; RESP 18
[2019-03-10 20:00] VITALS: BP 136/82; PULSE 70; RESP 18
[2019-03-10] MEDS: DIPHENHYDRAMINE 25 MG CAP PO SCH (21:29)
[2019-03-10] MEDS: GABAPENTIN 300 MG CAP PO SCH (21:29)
[2019-03-11 02:00] VITALS: BP 131/71; PULSE 67; RESP 18
[2019-03-11] MEDS: PANTOPRAZOLE (EC) 40 MG TAB PO SCH ×2 (06:26→17:38)
[2019-03-11] MEDS: LEVOTHYROXINE 75 MCG TAB PO SCH (06:26)
[2019-03-11 07:30] VITALS: BP 141/65; PULSE 63; RESP 20
[2019-03-11] MEDS: GABAPENTIN 100 MG CAP PO SCH ×3 (08:38→17:38)
[2019-03-11] MEDS: CARBIDOPA/LEVODOPA (25/100) TAB PO SCH ×3 (08:38→17:38)
[2019-03-11] MEDS: MULTIVITAMINS THERAPEUTIC TAB PO SCH (08:39)
[2019-03-11] MEDS: FERROUS SULFATE (EC) 325 MG TAB PO SCH ×3 (08:39→20:15)
[2019-03-11] MEDS: DOCUSATE SODIUM 100 MG CAP PO SCH ×2 (08:39→20:15)
[2019-03-11] MEDS: CLOPIDOGREL 75 MG TAB PO SCH (08:39)
[2019-03-11] MEDS: ASPIRIN (EC) 81 MG TAB PO SCH (08:39)
[2019-03-11] MEDS: ASCORBIC ACID 250 MG TAB PO SCH (08:40)
[2019-03-11] MEDS: METOPROLOL 25 MG TAB PO SCH ×2 (08:40→20:15)
[2019-03-11 14:00] VITALS: BP 127/64; PULSE 58; RESP 18
[2019-03-11] MEDS ORDERED: PROMETHAZINE/DM (CUP) PO PRN (14:00)
[2019-03-11 19:42] VITALS: BP 143/64; PULSE 74; RESP 19
[2019-03-11 20:14] VITALS: BP 152/65; PULSE 74
[2019-03-11] MEDS: DIPHENHYDRAMINE 25 MG CAP PO SCH (20:15)
[2019-03-11] MEDS: GABAPENTIN 300 MG CAP PO SCH (20:15)
[2019-03-12 02:56] VITALS: BP 121/55; PULSE 62; RESP 17
[2019-03-12] MEDS: LEVOTHYROXINE 75 MCG TAB PO SCH (06:17)
[2019-03-12] MEDS: PANTOPRAZOLE (EC) 40 MG TAB PO SCH ×2 (06:17→17:21)
[2019-03-12 07:00] VITALS: BP_SYST 135; PULSE 60; RESP 18
[2019-03-12] MEDS: FERROUS SULFATE (EC) 325 MG TAB PO SCH ×3 (08:53→20:54)
[2019-03-12] MEDS: DOCUSATE SODIUM 100 MG CAP PO SCH ×2 (08:53→20:54)
[2019-03-12] MEDS: MULTIVITAMINS THERAPEUTIC TAB PO SCH (08:53)
[2019-03-12] MEDS: ASPIRIN (EC) 81 MG TAB PO SCH (08:53)
[2019-03-12] MEDS: CARBIDOPA/LEVODOPA (25/100) TAB PO SCH ×3 (08:53→17:22)
[2019-03-12] MEDS: ASCORBIC ACID 250 MG TAB PO SCH (08:53)
[2019-03-12] MEDS: CLOPIDOGREL 75 MG TAB PO SCH (08:53)
[2019-03-12] MEDS: METOPROLOL 25 MG TAB PO SCH ×2 (08:54→20:55)
[2019-03-12] MEDS: GABAPENTIN 100 MG CAP PO SCH ×3 (08:56→17:21)
[2019-03-12 14:00] VITALS: BP 140/60; PULSE 60; RESP 18
[2019-03-12 20:00] VITALS: BP 134/60; PULSE 70; RESP 18
[2019-03-12] MEDS: GABAPENTIN 300 MG CAP PO SCH (20:54)
[2019-03-12] MEDS: DIPHENHYDRAMINE 25 MG CAP PO SCH (20:54)
[2019-03-13 02:00] VITALS: BP 115/54; PULSE 59; RESP 18
[2019-03-13] MEDS: LEVOTHYROXINE 75 MCG TAB PO SCH (06:17)
[2019-03-13] MEDS: PANTOPRAZOLE (EC) 40 MG TAB PO SCH ×2 (06:17→17:42)
[2019-03-13 07:00] VITALS: BP 148/58; PULSE 60; RESP 18
[2019-03-13 08:39] VITALS: BP 125/59; PULSE 65
[2019-03-13] MEDS: FERROUS SULFATE (EC) 325 MG TAB PO SCH ×3 (08:41→20:46)
[2019-03-13] MEDS: GABAPENTIN 100 MG CAP PO SCH ×3 (08:41→17:42)
[2019-03-13] MEDS: CLOPIDOGREL 75 MG TAB PO SCH (08:41)
[2019-03-13] MEDS: CARBIDOPA/LEVODOPA (25/100) TAB PO SCH ×3 (08:41→17:42)
[2019-03-13] MEDS: ASCORBIC ACID 250 MG TAB PO SCH (08:41)
[2019-03-13] MEDS: ASPIRIN (EC) 81 MG TAB PO SCH (08:41)
[2019-03-13] MEDS: DOCUSATE SODIUM 100 MG CAP PO SCH ×2 (08:41→20:45)
[2019-03-13] MEDS: MULTIVITAMINS THERAPEUTIC TAB PO SCH (08:41)
[2019-03-13] MEDS: METOPROLOL 25 MG TAB PO SCH ×2 (08:42→20:50)
[2019-03-13 14:00] VITALS: BP 106/46; PULSE 50; RESP 18
[2019-03-13 20:00] VITALS: BP 138/61; PULSE 60; RESP 18
[2019-03-13] MEDS: DIPHENHYDRAMINE 25 MG CAP PO SCH (20:45)
[2019-03-13] MEDS: GABAPENTIN 300 MG CAP PO SCH (20:52)
[2019-03-14 02:29] VITALS: BP 127/60; PULSE 63; RESP 18
[2019-03-14] MEDS: PANTOPRAZOLE (EC) 40 MG TAB PO SCH ×2 (06:07→17:46)
[2019-03-14] MEDS: LEVOTHYROXINE 75 MCG TAB PO SCH (06:07)
[2019-03-14 07:00] VITALS: BP 140/70; PULSE 61; RESP 18
[2019-03-14] MEDS: CARBIDOPA/LEVODOPA (25/100) TAB PO SCH ×3 (09:10→17:42)
[2019-03-14] MEDS: MULTIVITAMINS THERAPEUTIC TAB PO SCH (09:10)
[2019-03-14] MEDS: DOCUSATE SODIUM 100 MG CAP PO SCH ×2 (09:10→20:29)
[2019-03-14] MEDS: FERROUS SULFATE (EC) 325 MG TAB PO SCH ×3 (09:10→20:29)
[2019-03-14] MEDS: CLOPIDOGREL 75 MG TAB PO SCH (09:11)
[2019-03-14] MEDS: ASCORBIC ACID 250 MG TAB PO SCH (09:11)
[2019-03-14] MEDS: METOPROLOL 25 MG TAB PO SCH ×2 (09:11→20:28)
[2019-03-14] MEDS: ASPIRIN (EC) 81 MG TAB PO SCH (09:11)
[2019-03-14] MEDS: GABAPENTIN 100 MG CAP PO SCH ×3 (09:43→17:42)
[2019-03-14 14:00] VITALS: BP 134/83; PULSE 40; RESP 18
[2019-03-14 19:41] VITALS: BP 138/77; PULSE 69; RESP 18
[2019-03-14] MEDS: GABAPENTIN 300 MG CAP PO SCH (20:28)
[2019-03-14] MEDS: DIPHENHYDRAMINE 25 MG CAP PO SCH (20:28)
[2019-03-15 02:00] VITALS: BP 132/72; PULSE 63; RESP 18
[2019-03-15] MEDS: PANTOPRAZOLE (EC) 40 MG TAB PO SCH ×2 (06:16→17:22)
[2019-03-15] MEDS: LEVOTHYROXINE 75 MCG TAB PO SCH (06:16)
[2019-03-15 08:00] VITALS: BP 125/66; PULSE 54; RESP 17
[2019-03-15] MEDS: CARBIDOPA/LEVODOPA (25/100) TAB PO SCH ×3 (08:04→17:22)
[2019-03-15] MEDS: DOCUSATE SODIUM 100 MG CAP PO SCH ×2 (08:26→21:13)
[2019-03-15] MEDS: ASCORBIC ACID 250 MG TAB PO SCH (08:26)
[2019-03-15] MEDS: CLOPIDOGREL 75 MG TAB PO SCH (08:26)
[2019-03-15] MEDS: FERROUS SULFATE (EC) 325 MG TAB PO SCH ×3 (08:27→21:13)
[2019-03-15] MEDS: ASPIRIN (EC) 81 MG TAB PO SCH (08:27)
[2019-03-15 08:28] VITALS: BP 132/71; PULSE 65
[2019-03-15] MEDS: METOPROLOL 25 MG TAB PO SCH ×2 (08:28→21:00)
[2019-03-15] MEDS: MULTIVITAMINS THERAPEUTIC TAB PO SCH (08:29)
[2019-03-15] MEDS: GABAPENTIN 100 MG CAP PO SCH ×3 (08:31→17:22)
[2019-03-15 14:00] VITALS: BP 136/70; PULSE 59; RESP 18
[2019-03-15 19:54] VITALS: BP 125/68; PULSE 62; RESP 18
[2019-03-15] MEDS: GABAPENTIN 300 MG CAP PO SCH (21:12)
[2019-03-15] MEDS: DIPHENHYDRAMINE 25 MG CAP PO SCH (21:12)
[2019-03-16 02:00] VITALS: BP 132/72; PULSE 65; RESP 18
[2019-03-16] MEDS: LEVOTHYROXINE 75 MCG TAB PO SCH (06:12)
[2019-03-16] MEDS: PANTOPRAZOLE (EC) 40 MG TAB PO SCH ×2 (06:12→17:14)
[2019-03-16 07:30] VITALS: BP 152/72; PULSE 57; RESP 18
[2019-03-16] MEDS: METOPROLOL 25 MG TAB PO SCH ×2 (08:09→20:12)
[2019-03-16] MEDS: CLOPIDOGREL 75 MG TAB PO SCH (08:10)
[2019-03-16] MEDS: FERROUS SULFATE (EC) 325 MG TAB PO SCH ×3 (08:11→20:11)
[2019-03-16] MEDS: GABAPENTIN 100 MG CAP PO SCH ×3 (08:11→17:14)
[2019-03-16] MEDS: DOCUSATE SODIUM 100 MG CAP PO SCH ×2 (08:11→20:12)
[2019-03-16] MEDS: ASPIRIN (EC) 81 MG TAB PO SCH (08:12)
[2019-03-16] MEDS: CARBIDOPA/LEVODOPA (25/100) TAB PO SCH ×3 (08:12→17:14)
[2019-03-16] MEDS: MULTIVITAMINS THERAPEUTIC TAB PO SCH (08:12)
[2019-03-16] MEDS: ASCORBIC ACID 250 MG TAB PO SCH (08:12)
[2019-03-16 14:00] VITALS: BP 122/58; PULSE 70; RESP 18
[2019-03-16 19:28] VITALS: BP 138/65; PULSE 70; RESP 18
[2019-03-16] MEDS: GABAPENTIN 300 MG CAP PO SCH (20:12)
[2019-03-16] MEDS: BETAMETHASONE 0.05% 15 GM OINT TOP SCH (20:20)
[2019-03-16] MEDS: DIPHENHYDRAMINE 25 MG CAP PO SCH (21:00)
[2019-03-17 02:00] VITALS: BP 131/68; PULSE 62; RESP 18
[2019-03-17] MEDS: LEVOTHYROXINE 75 MCG TAB PO SCH (06:51)
[2019-03-17] MEDS: PANTOPRAZOLE (EC) 40 MG TAB PO SCH ×2 (06:51→17:59)
[2019-03-17 07:30] VITALS: BP 147/73; PULSE 56; RESP 20
[2019-03-17] MEDS: BETAMETHASONE 0.05% 15 GM OINT TOP SCH ×2 (08:11→20:25)
[2019-03-17] MEDS: FERROUS SULFATE (EC) 325 MG TAB PO SCH ×3 (08:16→20:25)
[2019-03-17] MEDS: MULTIVITAMINS THERAPEUTIC TAB PO SCH (08:16)
[2019-03-17] MEDS: ASPIRIN (EC) 81 MG TAB PO SCH (08:17)
[2019-03-17] MEDS: GABAPENTIN 100 MG CAP PO SCH ×3 (08:17→17:59)
[2019-03-17] MEDS: CLOPIDOGREL 75 MG TAB PO SCH (08:17)
[2019-03-17] MEDS: DOCUSATE SODIUM 100 MG CAP PO SCH ×2 (08:17→20:25)
[2019-03-17] MEDS: CARBIDOPA/LEVODOPA (25/100) TAB PO SCH ×3 (08:17→17:59)
[2019-03-17] MEDS: ASCORBIC ACID 250 MG TAB PO SCH (08:17)
[2019-03-17] MEDS: METOPROLOL 25 MG TAB PO SCH ×2 (09:56→20:25)
[2019-03-17 14:00] VITALS: BP 152/67; PULSE 66; RESP 20
[2019-03-17 19:29] VITALS: BP 142/68; PULSE 68; RESP 18
[2019-03-17] MEDS: DIPHENHYDRAMINE 25 MG CAP PO SCH (20:25)
[2019-03-17] MEDS: GABAPENTIN 300 MG CAP PO SCH (20:25)
[2019-03-18 02:00] VITALS: BP 134/66; PULSE 63; RESP 18
[2019-03-18] MEDS: LEVOTHYROXINE 75 MCG TAB PO SCH (06:48)
[2019-03-18] MEDS: PANTOPRAZOLE (EC) 40 MG TAB PO SCH (06:49)
[2019-03-18 07:30] VITALS: BP 142/65; PULSE 55; RESP 18
[2019-03-18] MEDS: BETAMETHASONE 0.05% 15 GM OINT TOP SCH (08:09)
[2019-03-18] MEDS: CLOPIDOGREL 75 MG TAB PO SCH (08:09)
[2019-03-18] MEDS: ASPIRIN (EC) 81 MG TAB PO SCH (08:09)
[2019-03-18] MEDS: MULTIVITAMINS THERAPEUTIC TAB PO SCH (08:09)
[2019-03-18] MEDS: ASCORBIC ACID 250 MG TAB PO SCH (08:09)
[2019-03-18] MEDS: FERROUS SULFATE (EC) 325 MG TAB PO SCH ×2 (08:09→12:01)
[2019-03-18] MEDS: DOCUSATE SODIUM 100 MG CAP PO SCH (08:09)
[2019-03-18] MEDS: GABAPENTIN 100 MG CAP PO SCH ×2 (08:10→12:01)
[2019-03-18] MEDS: CARBIDOPA/LEVODOPA (25/100) TAB PO SCH ×2 (08:10→11:56)
[2019-03-18] MEDS: METOPROLOL 25 MG TAB PO SCH (08:11)
[2019-03-18] MEDS ORDERED: LACTULOSE 30ML CUP PO PRN (12:00)
[2019-03-18 14:00] VITALS: BP 127/56; PULSE 62; RESP 20
== END 2019-03-18 16:55 | disposition home health service (06) | DRG 57 ==
LOC: VRC 18:45
PROVIDERS: ADMIT Physical Medicine & Rehabilitation; ATTEND Internal Medicine
DX: G20 Parkinson's disease (principal); N39.0 Urinary tract infection, site not specified; I83.018 Varicose veins of right lower extremity with ulcer other part of lower leg; I12.9 Hypertensive chronic kidney disease with stage 1 through stage 4 chronic kidney disease, or unspecified chronic kidney disease; N18.9 Chronic kidney disease, unspecified; D64.9 Anemia, unspecified; I73.9 Peripheral vascular disease, unspecified; R13.11 Dysphagia, oral phase; F41.9 Anxiety disorder, unspecified; G62.9 Polyneuropathy, unspecified; Z74.09 Other reduced mobility; E03.9 Hypothyroidism, unspecified; K21.9 Gastro-esophageal reflux disease without esophagitis; Z95.828 Presence of other vascular implants and grafts; B96.20 Unspecified Escherichia coli [E. coli] as the cause of diseases classified elsewhere; F06.31 Mood disorder due to known physiological condition with depressive features; F06.8 Other specified mental disorders due to known physiological condition; R13.19 Other dysphagia
CPT/HCPCS: 71045; 80048; 80053; 81001; 83735; 83880; 84439; 85025; 87081; 87086; 92507; 92523; 92526; 92610; 97110; 97112; 97116; 97163; 97530; 97535; 97542